=== PATIENT | male | born 2000 | race Caucasian/White ===

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

== ENCOUNTER 2020-08-19 18:54 | Inpatient (IN) | payer OTHER ==
[2020-08-19 20:23] LABS: Basophils % (A) 0 %; Eosinophils % (A) 1 %; HCT 41.1 % (39.0-53.0); Lymphocytes # (A) 2.2 k/uL (1.0-4.8); MCH 33.8 pg (25.0-35.0); MCHC 34.1 g/dL (31.0-37.0); MCV 99.1 fL (80.0-100.0); Mean Platelet Volume 6.5; Monocytes % (A) 1 %; Neutrophils % (A) 30 %; Platelet Count 428 k/uL (150-450); RBC 4.15 m/uL (4.30-5.90); WBC 3.2 k/uL (4.0-11.0)
[2020-08-19 20:38] LABS: ALT 14 U/L (4-49); AST 20 U/L (17-59); African American GFR (CKD) >90 (>60 ml/min/1.73 sqM); Albumin 3.6 g/dL (3.5-5.0); Alkaline Phosphatase 50 U/L (38-126); Anion Gap 12 mmol/L; Blood Urea Nitrogen 15 mg/dL (9-20); Calcium 7.6 mg/dL (8.4-10.2); Carbon Dioxide 16 mmol/L (22-30); Chloride 114 mmol/L (98-107); Glucose 74 mg/dL (74-99); Lymphocytes % (A) 67 %; Non-African American GFR(CKD) >90 (>60 ml/min/1.73 sqM); Potassium 2.8 mmol/L (3.5-5.1); Sodium 142 mmol/L (137-145); Total Protein 6.2 g/dL (6.3-8.2)
[2020-08-19] MEDS ORDERED: POTASSIUM CHLORIDE ER 20 MEQ TAB.ER PO STA (20:45)
[2020-08-19] MEDS ORDERED: POTASSIUM CHLORIDE 20 MEQ in WATER FOR INJECTION 1 100ML.BAG IVPB STA (20:46)
--- NOTE | 2020-08-19 20:55 | CT ---
EXAMINATION TYPE: CT pelvis w con DATE OF EXAM: 08/19/2020 COMPARISON: None HISTORY: Rectal pain. CT DLP: 873.8 mGycm Automated exposure control for dose reduction was used. CONTRAST: Performed with IV Contrast, patient injected with 100ml mL of Isovue 300. FINDINGS: The anal sphincter complex and perineum appear normal. The rectum and ischiorectal fossa, and other perirectal soft tissues appear normal. The remainder of the pelvic and visualized abdominal hollow viscera are unremarkable. The pelvic solid viscera are unremarkable. There is no pelvic adenopathy. The visualized abdominal solid viscera are unremarkable. There is no abdominal adenopathy. Visualized peritoneal cavity is negative for abnormal fluid or gas collections. Visualized vasculature is unremarkable. No acute skeletal findings are seen. IMPRESSION: NO ACUTE CT PROCESS.
[2020-08-19] MEDS ORDERED: POTASSIUM CHLORIDE 10 MEQ in WATER FOR INJECTION 1 100ML.BAG IVPB ONE (21:47)
[2020-08-19] MEDS ORDERED: MAGNESIUM OXIDE 400 MG TAB PO STA (21:53)
[2020-08-19] MEDS ORDERED: CLINDAMYCIN 600 MG in DEXTROSE 5% IN WATER 50 ML IVPB STA ×2 (21:57)
[2020-08-19] MEDS ORDERED: NALOXONE 0.4 MG/ML 1 ML VIAL IV PRN (22:01)
--- NOTE | 2020-08-19 22:03 | ED ---
GI Bleed HPI - General Chief complaint: GI Bleed Stated complaint: rectal pain Time Seen by Provider: 08/19/20 19:15 Source: patient Mode of arrival: ambulatory Limitations: no limitations - History of Present Illness Initial comments: 20-year-old male presenting to the ER today for chief complaint of rectal pain. Patient states he has rectal pain and bleeding and some discharge. He states he thinks an abscess ruptured. Patient states he was told by his outpatient provider that this was a hemorrhoid. Patient denies any known history of hemorrhoids. Patient denies any current bleeding. She denies any fevers chills general malaise. Patient states he did take laxatives in order to have softer bowel movements to make it less painful. Patient denies experiencing this for the past remaining review systems negative upon arrival patient appears nontoxic at distress - Related Data Home Medications Medication Instructions Recorded Confirmed Omeprazole 20 mg PO HS 08/19/20 08/19/20 Allergies Allergy/AdvReac Type Severity Reaction Status Date / Time adhesive Allergy Rash/Hives Verified 08/19/20 21:54 amoxicillin Allergy Rash/Hives. Verified 08/19/20 21:54 SWELLING. Sulfa (Sulfonamide Allergy Unknown Verified 08/19/20 21:54 Antibiotics) Review of Systems ROS Statement: Those systems with pertinent positive or pertinent negative responses have been documented in the HPI. ROS Other: All systems not noted in ROS Statement are negative. Past Medical History Past Medical History: Asthma, GERD/Reflux Additional Past Medical History / Comment(s): BRONCHITIS History of Any Multi-Drug Resistant Organisms: None Reported Past Surgical History: Appendectomy Additional Past Surgical History / Comment(s): DENTAL REHAB. Past Anesthesia/Blood Transfusion Reactions: No Reported Reaction, Family History of Problems w/ Anesthesia Additional Past Anesthesia/Blood Transfusion Reaction / Comment(s): HAD GENERAL ANESTHESIA FOR DENTAL REHAB. MOTHER GET PONV Past Psychological History: No Psychological Hx Reported Smoking Status: Never smoker Past Alcohol Use History: None Reported Past Drug Use History: Marijuana - Past Family History Mother Family Medical History: No Reported History General Exam - General Exam Comments Initial Comments: General: The patient is awake and alert, in no distress Eye: Pupils are equal, round and reactive to light, extra-ocular movements are intact. No nystagmus. There is normal conjunctiva bilaterally. No signs of icterus. Ears, nose, mouth and throat: There are moist mucous membranes and no oral lesions. Neck: The neck is supple, there is no tenderness or JVD. Cardiovascular: There is a regular rate and rhythm. No murmur, rub or gallop is appreciated. Respiratory: Lungs are clear to auscultation, respirations are non-labored, breath sounds are equal. No wheezes, stridor, rales, or rhonchi. Gastrointestinal: Soft, non-distended, non-tender abdomen without masses or organomegaly noted. There is no rebound or guarding present. Rectal: no hemmorhoid appreciated (internal nor external), however there appears to be a hold, area appearing consistent with recently rupture perianal abscess. No current drainage/fluctuance or redness but is tender to touch. Musculoskeletal: Normal ROM, no tenderness. Strength 5/5. Sensation intact. Pulses equal bilaterally 2+. Neurological: A&O x 3. CN II-XII intact, There are no obvious motor or sensory deficits. Coordination appears grossly intact. Speech is normal. Skin: Skin is warm and dry and no rashes or lesions are noted. Psychiatric: Cooperative, appropriate mood & affect, normal judgment. Limitations: no limitations Course Vital Signs 08/19/20 18:55 Temperature 98.2 F Pulse Rate 122 H Respiratory 16 Rate Blood Pressure 174/113 O2 Sat by Pulse 97 Oximetry Medical Decision Making - Medical Decision Making 20yo male presenting for cc of rectal bleeding. appears to be from a recently ruptured abscess. CT unremarkable. no fevers. pt found to have electrolyte abnormalities including hypo-magnesium and hypokalemia. Replaced orally as well as potassium intravenously. pt could not tolerate potassium. it was cancelled after 5mg was given. further diluted by pharmacy and sent up an additional 10mg for a table of 15mg IVBP. Patient case discussed with Abraham Mcgarry who prefers admission for monitoring and repeat labs. pt agreeable. pt case accepted for admission by April (for [facility] group). - Lab Data Result diagrams: 08/19/20 20:09 08/19/20 20:09 Lab Results 08/19/20 08/19/20 08/19/20 Range/Units 20:09 20:09 20:09 WBC 3.2 L (4.0-11.0) k/uL RBC 4.15 L (4.30-5.90) m/uL Hgb 14.0 (13.0-17.5) gm/dL Hct 41.1 (39.0-53.0) % MCV 99.1 (80.0-100.0) fL MCH 33.8 (25.0-35.0) pg MCHC 34.1 (31.0-37.0) g/dL RDW 14.0 (11.5-15.5) % Plt Count 428 (150-450) k/uL MPV 6.5 Neutrophils % 30 % Lymphocytes % 67 % Monocytes % 1 % Eosinophils % 1 % Basophils % 0 % Neutrophils # 1.0 L (1.3-7.7) k/uL Lymphocytes # 2.2 (1.0-4.8) k/uL Monocytes # 0.0 (0-1.0) k/uL Eosinophils # 0.0 (0-0.7) k/uL Basophils # 0.0 (0-0.2) k/uL Sodium 142 (137-145) mmol/L Potassium 2.8 L (3.5-5.1) mmol/L Chloride 114 H (98-107) mmol/L Carbon Dioxide 16 L (22-30) mmol/L Anion Gap 12 mmol/L BUN 15 (9-20) mg/dL Creatinine 0.76 (0.66-1.25) mg/dL Est GFR (CKD-EPI)AfAm >90 (>60 ml/min/1.73 sqM) Est GFR (CKD-EPI)NonAf >90 (>60 ml/min/1.73 sqM) Glucose 74 (74-99) mg/dL Calcium 7.6 L (8.4-10.2) mg/dL Magnesium 1.3 L (1.6-2.3) mg/dL Total Bilirubin 1.0 (0.2-1.3) mg/dL AST 20 (17-59) U/L ALT 14 (4-49) U/L Alkaline Phosphatase 50 (38-126) U/L Total Protein 6.2 L (6.3-8.2) g/dL Albumin 3.6 (3.5-5.0) g/dL Disposition Clinical Impression: Hypomagnesemia, Hypokalemia, Perianal pain Disposition: ADMITTED IP TO THIS HOSP Condition: Stable Is patient prescribed a controlled substance at d/c from ED?: No Referrals: Jaylon Valera MD [Primary Care Provider] - 1-2 days Time of Disposition: 22:02 Decision to Admit Reason: Admit from EC Decision Date: 08/19/20 Decision Time: 22:02
[2020-08-20] MEDS: SODIUM CHLORIDE 0.9% 1,000 ML IV SCH ×4 (01:33→23:41)
[2020-08-20] MEDS: MORPHINE SULFATE 4 MG/ML SYRINGE IVP PRN ×5 (01:35→22:50)
[2020-08-20 09:31] LABS: ALT 15 U/L (4-49); AST 20 U/L (17-59); African American GFR (CKD) >90 (>60 ml/min/1.73 sqM); Albumin 4.1 g/dL (3.5-5.0); Alkaline Phosphatase 55 U/L (38-126); Anion Gap 11 mmol/L; Blood Urea Nitrogen 15 mg/dL (9-20); Calcium 9.3 mg/dL (8.4-10.2); Carbon Dioxide 26 mmol/L (22-30); Chloride 101 mmol/L (98-107); Glucose 90 mg/dL (74-99); Non-African American GFR(CKD) >90 (>60 ml/min/1.73 sqM); Potassium 3.9 mmol/L (3.5-5.1); Sodium 138 mmol/L (137-145); Total Protein 6.8 g/dL (6.3-8.2)
[2020-08-20] MEDS ORDERED: ACETAMINOPHEN TAB 325 MG TAB PO PRN (13:31)
--- NOTE | 2020-08-20 15:20 | P.HPIM ---
History of Present Illness This is a pleasant 20 years old male with past medical history of hiatal hernia and acid reflux on omeprazole, obesity, smokes marijuana but no cigarette smoking or alcohol abuse. Presents because of perineal pain. Patient thought he has hemorrhoids for 10 days due to pain and tender swelling followed by himself, with some discharge and blood per rectum, he tried some sitz baths which did not help, gradually was getting worse and so he went to see his PCP Dr. Valera and respiratory there, therefore no hemorrhoids but they told him there is possible an abscess and therefore him to the hospital. Patient states that his pain is 5/10 in severity but he denies fever, no abdominal pain. He has painful defecation so he tried to keep his stool soft. No vomiting. He is hemodynamically stable and vitals and labs are reviewed. In the emergency room he was started on clindamycin, magnesium and potassium replaced per protocol. He is on normal saline 125 mL/h Pelvic CT was unremarkable Review of Systems CONSTITUTIONAL: No fever, no malaise, no fatigue. HEENT: No recent visual problems or hearing problems. Denied any sore throat. CARDIOVASCULAR: No orthopnea, PND, no palpitations, no syncope. PULMONARY: No shortness of breath, no cough, no hemoptysis. GASTROINTESTINAL: No diarrhea, no nausea, no vomiting, no abdominal pain. Normoactive bowel sounds. NEUROLOGICAL: No headaches, no weakness, no numbness. HEMATOLOGICAL: Denies any bleeding or petechiae. GENITOURINARY: Denies any burning micturition, frequency, or urgency. MUSCULOSKELETAL/RHEUMATOLOGICAL: Denies any joint pain, swelling, or any muscle pain. ENDOCRINE: Denies any polyuria or polydipsia. Past Medical History Past Medical History: Asthma, GERD/Reflux Additional Past Medical History / Comment(s): Bronchitis History of Any Multi-Drug Resistant Organisms: None Reported Past Surgical History: Appendectomy Additional Past Surgical History / Comment(s): Dental procedures, EGD Past Anesthesia/Blood Transfusion Reactions: No Reported Reaction, Family History of Problems w/ Anesthesia Additional Past Anesthesia/Blood Transfusion Reaction / Comment(s): Mother has PONV Smoking Status: Never smoker - Past Family History Mother Family Medical History: CVA/TIA, Diabetes Mellitus, Hyperlipidemia, Hypertension Additional Family Medical History / Comment(s): TIA Father Family Medical History: CVA/TIA Additional Family Medical History / Comment(s): TIA Medications and Allergies Home Medications Medication Instructions Recorded Confirmed Type Omeprazole 20 mg PO HS 08/19/20 08/19/20 History Allergies Allergy/AdvReac Type Severity Reaction Status Date / Time adhesive Allergy Rash/Hives Verified 08/19/20 21:54 amoxicillin Allergy Rash/Hives. Verified 08/19/20 21:54 SWELLING. Sulfa (Sulfonamide Allergy Unknown Verified 08/19/20 21:54 Antibiotics) Physical Exam Vitals: Vital Signs Temp Pulse Resp BP BP Pulse Ox 08/20/20 14:00 97.4 F L 16 144/92 92 L 08/20/20 07:00 98.7 F 16 151/99 98 08/20/20 06:30 97.6 F 106 H 18 129/90 97 08/20/20 04:45 85 16 145/83 95 08/20/20 02:00 86 08/20/20 01:18 98.7 F 115 H 18 151/88 96 08/19/20 22:32 97 18 148/88 98 08/19/20 18:55 98.2 F 122 H 16 174/113 97 Intake and Output 08/20/20 08/20/20 08/20/20 06:59 14:59 22:59 Other: Voiding Method Toilet Weight 98.883 kg GENERAL: The patient is alert and oriented x3, not in any acute distress. Well developed, well nourished. HEENT: Pupils are round and equally reacting to light. EOMI. No scleral icterus. No conjunctival pallor. Normocephalic, atraumatic. No pharyngeal erythema. No thyromegaly. CARDIOVASCULAR: S1 and S2 present. No murmurs, rubs, or gallops. PULMONARY: Chest is clear to auscultation, no wheezing or crackles. -ABDOMEN: Soft, nontender, nondistended, normoactive bowel sounds. No palpable organomegaly. Rectal exam done after consent obtained from patient: No ulcers, no masses, no discharge, no signs and symptoms of cellulitis however tenderness in the left buttock area more than the right side MUSCULOSKELETAL: No joint swelling or deformity. EXTREMITIES: No cyanosis, clubbing, or pedal edema. NEUROLOGICAL: Gross neurological examination did not reveal any focal deficits. SKIN: No rashes. No petechiae Results CBC & Chem 7: 08/19/20 20:09 08/20/20 08:26 Labs: Abnormal Lab Results - Last 24 Hours (Table) 08/19/20 08/19/20 08/19/20 Range/Units 20:09 20:09 20:09 WBC 3.2 L (4.0-11.0) k/uL RBC 4.15 L (4.30-5.90) m/uL Neutrophils # 1.0 L (1.3-7.7) k/uL Potassium 2.8 L (3.5-5.1) mmol/L Chloride 114 H (98-107) mmol/L Carbon Dioxide 16 L (22-30) mmol/L Calcium 7.6 L (8.4-10.2) mg/dL Magnesium 1.3 L (1.6-2.3) mg/dL Total Protein 6.2 L (6.3-8.2) g/dL Thrombosis Risk Factor Assmnt - Choose All That Apply Any of the Below Risk Factors Present?: Yes Each Factor Represents 1 point: Obesity (BMI >25) Other Risk Factors: No Other congenital or acquired thrombophilia - If yes, enter type in comment: No Thrombosis Risk Factor Assessment Total Risk Factor Score: 1 Thrombosis Risk Factor Assessment Level: Low Risk Assessment and Plan Assessment: -Perineal pain and tenderness, rule out perirectal abscess. Consult surgery team. We'll check a pro-calcitonin. Continue with gentle hydration -History of hiatal hernia, and acid reflux continue with PPI -Obesity with BMI of 34.1 -Substance abuse with marijuana DVT prophylaxis: Lovenox GI prophylaxis PPI
[2020-08-21] MEDS: MORPHINE SULFATE 4 MG/ML SYRINGE IVP PRN ×3 (03:07→15:34)
[2020-08-21] MEDS: HEPARIN SODIUM,PORCINE/PF 5,000 UNIT/0.5 ML SYRINGE SQ SCH ×2 (09:54→21:58)
[2020-08-21] MEDS: FAMOTIDINE 20 MG/2 ML VIAL IV SCH ×2 (09:54→21:58)
[2020-08-21] MEDS: SODIUM CHLORIDE 0.9% 1,000 ML IV SCH ×3 (11:58→23:17)
--- NOTE | 2020-08-21 16:02 | P.GSCN ---
History of Present Illness Consult date: 08/21/20 History of present illness: HPI: Patient admitted for rectal pain status post spontaneous drainage from rectal abscess. He reports using sitz bath that provided some relief. He reports rectal pain for almost 2 weeks. Despite drainage from his rectal abscess, he presented to the hospital with uncontrolled pain. STUDIES: CT pelvis reviewed without any fluid collection or drainable abscess. ASSESMENT: 1. Rectal abscess with pain PLAIN: 1. Recommend sitz bath for relief 2. Continue antibiotics for complicated infection. Past Medical History Past Medical History: Asthma, GERD/Reflux Additional Past Medical History / Comment(s): Bronchitis History of Any Multi-Drug Resistant Organisms: None Reported Past Surgical History: Appendectomy Additional Past Surgical History / Comment(s): Dental procedures, EGD Past Anesthesia/Blood Transfusion Reactions: No Reported Reaction, Family History of Problems w/ Anesthesia Additional Past Anesthesia/Blood Transfusion Reaction / Comm: Mother has PONV Smoking Status: Never smoker - Past Family History Mother Family Medical History: CVA/TIA, Diabetes Mellitus, Hyperlipidemia, Hypertension Additional Family Medical History / Comment(s): TIA Father Family Medical History: CVA/TIA Additional Family Medical History / Comment(s): TIA Medications and Allergies Home Medications Medication Instructions Recorded Confirmed Type Omeprazole 20 mg PO HS 08/19/20 08/19/20 History Allergies Allergy/AdvReac Type Severity Reaction Status Date / Time adhesive Allergy Rash/Hives Verified 08/19/20 21:54 amoxicillin Allergy Rash/Hives. Verified 08/19/20 21:54 SWELLING. Sulfa (Sulfonamide Allergy Unknown Verified 08/19/20 21:54 Antibiotics) Surgical - Exam Vital Signs Temp Pulse Resp BP Pulse Ox 98.2 F 122 H 16 174/113 97 08/19/20 18:55 08/19/20 18:55 08/19/20 18:55 08/19/20 18:55 08/19/20 18:55 Results - Labs 08/19/20 20:09 08/20/20 08:26
--- NOTE | 2020-08-21 21:54 | P.PN ---
Subjective This is a pleasant 20 years old male with past medical history of hiatal hernia and acid reflux on omeprazole, obesity, smokes marijuana but no cigarette smoking or alcohol abuse. Presents because of perineal pain. Patient thought he has hemorrhoids for 10 days due to pain and tender swelling followed by himself, with some discharge and blood per rectum, he tried some sitz baths which did not help, gradually was getting worse and so he went to see his PCP Dr. Valera and respiratory there, therefore no hemorrhoids but they told him there is possible an abscess and therefore him to the hospital. Patient states that his pain is 5/10 in severity but he denies fever, no abdominal pain. He has painful defecation so he tried to keep his stool soft. No vomiting. He is hemodynamically stable and vitals and labs are reviewed. In the emergency room he was started on clindamycin, magnesium and potassium replaced per protocol. He is on normal saline 125 mL/h Pelvic CT was unremarkable 08/21/2020 Patient presents with rectal pain and stated there is some discharge of bleeding however when examined him this can looks normal and there is no wound or discharge but he was complaining of from tenderness in the left buttock area. Patient was admitted to the hospital for surgical team consultation. Dr. Caceres evaluated the patient today and recommended conservative management. However he should ice of antibiotic. No fever or leukocytosis. Because of this we will consult infectious disease team and we will check a C-reactive protein and Procalcitonin. Patient is on normal saline 75 mL/h Objective - Vital Signs Vital signs: Vital Signs Temp 98.7 F 08/21/20 19:05 Pulse 82 08/21/20 19:05 Resp 16 08/21/20 19:05 BP 106/74 08/21/20 19:05 Pulse Ox 97 08/21/20 19:05 Intake & Output 08/21/20 08/21/20 08/22/20 06:59 18:59 06:59 Intake Total 1650 720 Balance 1650 720 Intake: Intake, IV Titration 1500 Amount Sodium Chloride 0.9% 1, 1500 000 ml @ 125 mls/hr IV . Q8H DONTRELL Rx#:[id number] Oral 150 720 Other: Voiding Method Toilet # Voids 4 - Exam GENERAL: The patient is alert and oriented x3, not in any acute distress. Well developed, well nourished. HEENT: Pupils are round and equally reacting to light. EOMI. No scleral icterus. No conjunctival pallor. Normocephalic, atraumatic. No pharyngeal erythema. No thyromegaly. CARDIOVASCULAR: S1 and S2 present. No murmurs, rubs, or gallops. PULMONARY: Chest is clear to auscultation, no wheezing or crackles. ABDOMEN: Soft, nontender, nondistended, normoactive bowel sounds. No palpable organomegaly. Rectal exam: Deferred today MUSCULOSKELETAL: No joint swelling or deformity. EXTREMITIES: No cyanosis, clubbing, or pedal edema. NEUROLOGICAL: Gross neurological examination did not reveal any focal deficits. SKIN: No rashes. no petechiae. - Labs CBC & Chem 7: 08/19/20 20:09 08/20/20 08:26 Assessment and Plan Assessment: -Perineal pain and tenderness, rule out perirectal abscess. surgery team recommended conservative treatment. We'll check a pro-calcitonin/C-reactive protein is off antibiotics now. Consult ID team. Continue with gentle hydration -History of hiatal hernia, and acid reflux continue with PPI -Obesity with BMI of 34.1 -Substance abuse with marijuana DVT prophylaxis: Lovenox GI prophylaxis PPI
[2020-08-21] MEDS: IBUPROFEN 400 MG TAB PO PRN (23:16)
[2020-08-22] MEDS: FAMOTIDINE 20 MG/2 ML VIAL IV SCH ×2 (09:06→21:10)
[2020-08-22] MEDS: HEPARIN SODIUM,PORCINE/PF 5,000 UNIT/0.5 ML SYRINGE SQ SCH ×2 (09:08→21:10)
[2020-08-22] MEDS: IBUPROFEN 400 MG TAB PO PRN ×2 (09:11→17:08)
[2020-08-22 10:27] LABS: Basophils # (A) 0.01 X 10*3/uL (0.00-0.10); Basophils % (A) 0.3 %; Eosinophils # (A) 0.03 X 10*3/uL (0.04-0.35); Eosinophils % (A) 0.8 %; HCT 30.2 % (39.6-50.0); HGB 10.5 g/dL (13.0-17.0); Lymphocytes # (A) 3.37 X 10*3/uL (0.90-5.00); Lymphocytes % (A) 88.7 %; MCH 35.1 pg (27.0-32.0); MCHC 34.8 g/dL (32.0-37.0); Mean Platelet Volume 9.7 fL (9.5-12.2); Monocytes # (A) 0.05 X 10*3/uL (0.20-1.00); Monocytes % (A) 1.3 %; Neutrophils # (A) 0.34 X 10*3/uL (1.80-7.70); Neutrophils % (A) 8.9 %; Platelet Count 294 X 10*3/uL (140-440); RBC 2.99 X 10*6/uL (4.40-5.60); RDW 13.4 % (11.5-14.5)
[2020-08-22] MEDS: SODIUM CHLORIDE 0.9% 1,000 ML IV SCH ×2 (10:31→18:21)
--- NOTE | 2020-08-22 16:09 | P.CONS ---
History of Present Illness - Reason for Consult Consult date: 08/22/20 Leukopenia - History of Present Illness The patient is a 20-year-old white male, who presented to the emergency room because of perianal pain that started about 10 days ago. Painful defecation, and some diarrhea. The patient has a history of hemorrhoids and did notice some mild bleeding and attributed this to inflamed hemorrhoids. Symptoms did not improve with sitz baths and local treatment for hemorrhoids. He therefore sought attention with his PCP, and was felt to have a perirectal abscess. The patient was therefore directed to the ER. In the emergency room he was seen by surgery and was found to have spontaneous drainage of the rectal abscess. On admission his WBC was 3.2 with ANC of 1000. Subsequent blood draw showed persistent white count of 3000 range but ANC less than 500. Consult was therefore placed a further evaluation and recommendations. The patient denied any prior history of blood related problems. He denied any history of significant alcohol use, or IV drug use. No history of HIV, or autoimmune disease. He denied any new medications especially antibiotics that about 2 weeks ago he had an upper respiratory infection and has had some diarrhea since then which is slowly improving. Review of Systems Constitutional: Denies chills, Denies fever Eyes: denies blurred vision, denies pain Ears: deny: decreased hearing, ear discharge, earache, tinnitus Ears, nose, mouth and throat: Denies headache, Denies sore throat Cardiovascular: Denies chest pain, Denies shortness of breath Respiratory: Denies cough Gastrointestinal: Reports as per HPI, Reports change in bowel habits, Reports heartburn, Reports hematochezia Genitourinary: Reports as per HPI Musculoskeletal: Denies myalgias Integumentary: Reports as per HPI Neurological: Denies numbness, Denies weakness Psychiatric: Reports anxiety Endocrine: Denies fatigue, Denies weight change Hematologic/Lymphatic: Reports as per HPI Past Medical History Past Medical History: Asthma, GERD/Reflux Additional Past Medical History / Comment(s): Bronchitis History of Any Multi-Drug Resistant Organisms: None Reported Past Surgical History: Appendectomy Additional Past Surgical History / Comment(s): Dental procedures, EGD Past Anesthesia/Blood Transfusion Reactions: No Reported Reaction, Family History of Problems w/ Anesthesia Additional Past Anesthesia/Blood Transfusion Reaction / Comm: Mother has PONV Smoking Status: Never smoker - Past Family History Mother Family Medical History: CVA/TIA, Diabetes Mellitus, Hyperlipidemia, Hypertension Additional Family Medical History / Comment(s): TIA Father Family Medical History: CVA/TIA Additional Family Medical History / Comment(s): TIA Medications and Allergies Home Medications Medication Instructions Recorded Confirmed Type Omeprazole 20 mg PO HS 08/19/20 08/19/20 History Allergies Allergy/AdvReac Type Severity Reaction Status Date / Time adhesive Allergy Rash/Hives Verified 08/19/20 21:54 amoxicillin Allergy Rash/Hives. Verified 08/19/20 21:54 SWELLING. Sulfa (Sulfonamide Allergy Unknown Verified 08/19/20 21:54 Antibiotics) Physical Exam Vitals: Vital Signs Temp Pulse Pulse Resp BP Pulse Ox 08/22/20 14:00 98.4 F 81 16 130/74 98 08/22/20 07:16 98.2 F 60 118/78 98 08/22/20 02:00 97.5 F L 72 16 118/73 08/21/20 20:00 50 L 82 16 08/21/20 19:05 98.7 F 82 16 106/74 97 - Constitutional General appearance: no acute distress - EENT Eyes: EOMI, PERRLA ENT: hearing grossly normal, normal oropharynx - Neck Neck: no lymphadenopathy Thyroid: bilateral: normal size - Respiratory Respiratory: bilateral: CTA - Cardiovascular Rhythm: regular Heart sounds: normal: S1, S2 - Gastrointestinal General gastrointestinal: normal bowel sounds, soft - Integumentary Integumentary: normal - Neurologic Neurologic: CNII-XII intact - Musculoskeletal Musculoskeletal: generalized weakness, strength equal bilaterally - Psychiatric Psychiatric: A&O x's 3, appropriate affect Results CBC & Chem 7: 08/22/20 05:52 08/20/20 08:26 Labs: Abnormal Lab Results - Last 24 Hours (Table) 08/20/20 08/22/20 Range/Units 08:26 05:52 WBC 3.80 L (4.50-10.00) X 10*3/uL RBC 2.99 L (4.40-5.60) X 10*6/uL Hgb 10.5 L (13.0-17.0) g/dL Hct 30.2 L (39.6-50.0) % MCV 101.0 H (80.0-97.0) fL MCH 35.1 H (27.0-32.0) pg Neutrophils # 0.34 L* (1.80-7.70) X 10*3/uL Monocytes # 0.05 L (0.20-1.00) X 10*3/uL Eosinophils # 0.03 L (0.04-0.35) X 10*3/uL C-Reactive Protein 5.0 H (<1.0) mg/dL Comments: EGD procedure note and pathology report from 2017 reviewed. No major findings CT scan - pelvis: report reviewed US - abdomen: report reviewed (2016) Assessment and Plan (1) Leukopenia Narrative/Plan: The patient is preventing with leukopenia that appears to be mainly due to neutropenia. Neutrophil count drop further within his 24 hours of admission. - Patient's physical exam and history overall unrevealing. He is no history of recurrent infections on a regular basis. That would argue against benign cyclic neutropenia, which is a differential especially in this age group. - The patient did have a viral-type illness about 2 weeks ago and therefore an autoimmune phenomenon, worsened by acute inflammation is a possibility. Other causes are not ruled out. - A repeat CBC with differential. If the patient's ANC remains below 1000, especially below 500, then growth factors or the use given recent abscess. - Lab workup will be ordered for leukopenia, with deficiency states, HIV, protein electrophoresis studies and autoimmune/inflammatory markers. - There is no history of alcohol use, or liver disease. Liver ultrasound in 2016 was normal. Current Visit: Yes Status: Acute Code(s): D72.819 - DECREASED WHITE BLOOD CELL COUNT, UNSPECIFIED SNOMED Code(s): 42764957 (2) Perianal pain Narrative/Plan: Due to perirectal abscess, which appears to have spontaneously drained. Surgery is following. Defer to them for ongoing management Current Visit: Yes Status: Acute Code(s): K62.89 - OTHER SPECIFIED DISEASES OF ANUS AND RECTUM SNOMED Code(s): 170786398
[2020-08-22] MEDS: metroNIDAZOLE 500 MG TAB PO SCH ×2 (17:08→21:10)
[2020-08-22 18:07] LABS: Basophils % (A) 0 %; Eosinophils % (A) 1 %; HCT 36.6 % (39.0-53.0); HGB 12.7 gm/dL (13.0-17.5); Lymphocytes # (A) 1.6 k/uL (1.0-4.8); Lymphocytes % (A) 66 %; MCH 34.2 pg (25.0-35.0); MCHC 34.7 g/dL (31.0-37.0); MCV 98.6 fL (80.0-100.0); Mean Platelet Volume 6.6; Monocytes % (A) 1 %; Neutrophils # (A) 0.7 k/uL (1.3-7.7); Neutrophils % (A) 31 %; Platelet Count 352 k/uL (150-450); RBC 3.71 m/uL (4.30-5.90); RDW 13.2 % (11.5-15.5); WBC 2.4 k/uL (4.0-11.0)
[2020-08-22 19:08] LABS: Lymphocytes # (M) 1.49 k/uL (1.0-4.8); Neutrophils # (M) 0.91 k/uL (1.3-7.7); Neutrophils % (M) 38 %; Nucleated Red Blood Cells 0 /100 WBC (0-0); Total Cells Counted 100
--- NOTE | 2020-08-22 23:45 | P.PN ---
Subjective This is a pleasant 20 years old male with past medical history of hiatal hernia and acid reflux on omeprazole, obesity, smokes marijuana but no cigarette smoking or alcohol abuse. Presents because of perineal pain. Patient thought he has hemorrhoids for 10 days due to pain and tender swelling followed by himself, with some discharge and blood per rectum, he tried some sitz baths which did not help, gradually was getting worse and so he went to see his PCP Dr. Valera and respiratory there, therefore no hemorrhoids but they told him there is possible an abscess and therefore him to the hospital. Patient states that his pain is 5/10 in severity but he denies fever, no abdominal pain. He has painful defecation so he tried to keep his stool soft. No vomiting. He is hemodynamically stable and vitals and labs are reviewed. In the emergency room he was started on clindamycin, magnesium and potassium replaced per protocol. He is on normal saline 125 mL/h Pelvic CT was unremarkable 08/21/2020 Patient presents with rectal pain and stated there is some discharge of bleeding however when examined him this can looks normal and there is no wound or discharge but he was complaining of from tenderness in the left buttock area. Patient was admitted to the hospital for surgical team consultation. Dr. Caceres evaluated the patient today and recommended conservative management. However he should ice of antibiotic. No fever or leukocytosis. Because of this we will consult infectious disease team and we will check a C-reactive protein and Procalcitonin. Patient is on normal saline 75 mL/h 09/01/20 Patient is still complaining of from anal pain, and reports some drainage from his rectum although there is no objective evidence to light. However because of his persistent pain we repeated labs today which showed leukopenia and neut ropenia. Infectious disease consult is called was started him on Rocephin and Flagyl. Hematology/oncology team are somewhat cuplike HIV, protein electrophoresis with CBC monitoring. No surgical intervention per surgery team and the recommended a sitz bath Objective - Vital Signs Vital signs: Vital Signs Temp 98.2 F 08/22/20 07:16 Pulse 60 08/22/20 07:16 Resp 16 08/22/20 02:00 BP 118/78 08/22/20 07:16 Pulse Ox 98 08/22/20 07:16 Intake & Output 08/21/20 08/22/2021 18:59 06:59 18:59 Intake Total 720 Balance 720 Intake: Oral 720 Other: Voiding Method Toilet # Voids 4 1 - Exam GENERAL: The patient is alert and oriented x3, not in any acute distress. Well developed, well nourished. HEENT: Pupils are round and equally reacting to light. EOMI. No scleral icterus. No conjunctival pallor. Normocephalic, atraumatic. No pharyngeal erythema. No thyromegaly. CARDIOVASCULAR: S1 and S2 present. No murmurs, rubs, or gallops. PULMONARY: Chest is clear to auscultation, no wheezing or crackles. ABDOMEN: Soft, nontender, nondistended, normoactive bowel sounds. No palpable organomegaly. Rectal exam: Deferred today MUSCULOSKELETAL: No joint swelling or deformity. EXTREMITIES: No cyanosis, clubbing, or pedal edema. NEUROLOGICAL: Gross neurological examination did not reveal any focal deficits. SKIN: No rashes. no petechiae. - Labs CBC & Chem 7: 08/22/20 17:25 08/20/20 08:26 Labs: Abnormal Lab Results - Last 24 Hours (Table) 08/20/20 08/22/20 Range/Units 08:26 05:52 WBC 3.80 L (4.50-10.00) X 10*3/uL RBC 2.99 L (4.40-5.60) X 10*6/uL Hgb 10.5 L (13.0-17.0) g/dL Hct 30.2 L (39.6-50.0) % MCV 101.0 H (80.0-97.0) fL MCH 35.1 H (27.0-32.0) pg Neutrophils # 0.34 L* (1.80-7.70) X 10*3/uL Monocytes # 0.05 L (0.20-1.00) X 10*3/uL Eosinophils # 0.03 L (0.04-0.35) X 10*3/uL C-Reactive Protein 5.0 H (<1.0) mg/dL Assessment and Plan Assessment: -Perineal pain and tenderness, rule out perirectal abscess. surgery team recommended conservative treatment. Infectious" is appreciated and patient was started on antibiotics -Leukopenia/neutropenia, mostly secondary to his infection. Hematology/oncology input is appreciated and they recommended further workup as above -History of hiatal hernia, and acid reflux continue with PPI -Obesity with BMI of 34.1 -Substance abuse with marijuana DVT prophylaxis: Lovenox GI prophylaxis PPI
[2020-08-23] MEDS ORDERED: FILGRASTIM-SNDZ 480 MCG/0.8 ML SYRINGE SQ SCH (01:00)
[2020-08-23] MEDS: SODIUM CHLORIDE 0.9% 1,000 ML IV SCH ×3 (01:24→17:47)
--- NOTE | 2020-08-23 06:34 | CONS ---
CONSULTATION DATE OF SERVICE: 08/22/2020 REASON FOR CONSULTATION: Perirectal abscess. HISTORY OF PRESENT ILLNESS: The patient is a 20-year-old man who presented to [facility] ER 3 days ago on August 19 for evaluation of pain to the rectal area and some drainage. The patient mentioned he did have pressure to the right perirectal area with spontaneous drainage and drainage of blood and some clear drainage. The patient denies having any history of any trauma to the area. The patient has been complaining of pain to be sharp to dull aching, 4-5 out of 10 and no radiation. The patient denies having any fever or any chills. With these symptoms, the patient was evaluated by the ER physician. On arrival to the ER, the patient did have a CT of the pelvic area that did not mention any perirectal abscess. The patient did have a normal white count. He was slightly leukopenic and neutropenic. The patient did have a normal creatinine. COVID- 19 testing was negative. The patient has been evaluated by Admitting and Surgical service. Infectious Disease was consulted for management of antibiotic therapy. REVIEW OF SYSTEMS: Positive points have been mentioned in HPI. Rest of systems are negative. PAST MEDICAL HISTORY: Asthma, gastroesophageal reflux disease. PAST SURGICAL HISTORY: Appendectomy. SOCIAL HISTORY: Denies smoking, drinking. Does admit to marijuana use. FAMILY HISTORY: No pertinent findings noticed. ALLERGIES: SULFA and AMOXICILLIN with rash. No history of anaphylaxis. MEDICATIONS: The patient is currently on Tylenol, famotidine, Motrin, Narcan and IV fluid. PHYSICAL EXAMINATION: VITAL SIGNS: Blood pressure 136/76, pulse of 82, temperature 98.6, 98% on room air. GENERAL DESCRIPTION: Patient is a young male lying in bed in no distress. HEENT: Examination shows no pallor or scleral icterus. Oral mucous membrane is dry. NECK: Trachea central, no thyromegaly. LUNGS: Unlabored breathing, clear to auscultation. No wheeze or crackle. HEART: S1-S2, regular rate and rhythm. ABDOMEN: Soft, no tenderness. No guarding or rigidity. GI: On examination of the perirectal area, did have some superficial ulceration to the right perirectal area with no surrounding induration. Area was clean. Cultures were obtained. EXTREMITIES: No edema of the feet. SKIN: No rash or mass palpable. NEUROLOGICAL: Patient is awake, alert, oriented times three. Mood and affect normal. LABS: Hemoglobin is 12.7, white count 2.4, BUN of 15, creatinine 0.94. CT report as mentioned above. DIAGNOSTIC IMPRESSION AND PLAN: 1. Patient admitted to the hospital with perirectal pain and some drainage. CT failed to reveal any abscess. The patient did not have any fever. Did have some leukopenia and no significant induration or drainage was noticed. Suspicion low for underlying deep abscess or cellulitis. 2. Patient does have PENICILLIN allergy that will limit the number of antibiotics safe to use. PLAN: 1. Local culture has been obtained to guide antibiotic therapy. 2. Will empirically add Rocephin 2 grams daily and Flagyl. 3. We will follow on his clinical condition and culture to further adjust medication if needed. Thank you for this consultation. Will follow this patient along with you. MMODL / IJN: [id number] /
[2020-08-23 07:39] LABS: Basophils % (A) 0 %; Eosinophils # (A) 0.1 k/uL (0-0.7); Eosinophils % (A) 2 %; HCT 34.1 % (39.0-53.0); HGB 11.8 gm/dL (13.0-17.5); Lymphocytes # (A) 1.7 k/uL (1.0-4.8); Lymphocytes % (A) 64 %; MCH 34.3 pg (25.0-35.0); MCHC 34.5 g/dL (31.0-37.0); MCV 99.3 fL (80.0-100.0); Mean Platelet Volume 6.6; Monocytes % (A) 1 %; Neutrophils # (A) 0.9 k/uL (1.3-7.7); Neutrophils % (A) 33 %; Platelet Count 336 k/uL (150-450); RBC 3.43 m/uL (4.30-5.90); RDW 13.4 % (11.5-15.5); WBC 2.8 k/uL (4.0-11.0)
[2020-08-23] MEDS: metroNIDAZOLE 500 MG TAB PO SCH ×3 (08:31→21:13)
[2020-08-23] MEDS: FAMOTIDINE 20 MG/2 ML VIAL IV SCH ×2 (08:32→21:13)
[2020-08-23] MEDS: HEPARIN SODIUM,PORCINE/PF 5,000 UNIT/0.5 ML SYRINGE SQ SCH ×2 (08:33→21:13)
[2020-08-23] MEDS: IBUPROFEN 400 MG TAB PO PRN (08:34)
[2020-08-23 10:35] LABS: Calcium 9.3 mg/dL (8.7-10.3); Non-African American GFR(CKD) 107.9 (60.0-200.0); Potassium 3.8 mmol/L (3.5-5.5)
[2020-08-23 11:58] LABS: Protein, Total 6.7 g/dL (6.2-8.2)
[2020-08-23] MEDS: MORPHINE SULFATE 4 MG/ML SYRINGE IVP PRN ×2 (12:59→21:13)
[2020-08-23 13:49] LABS: Free Kappa Lt Chain Qnt, Serum 1.39 mg/dL (0.33-1.94)
--- NOTE | 2020-08-23 14:45 | P.PN ---
Subjective Progress Note Date: 08/23/20 CHIEF COMPLAINT: Perirectal pain HISTORY OF PRESENT ILLNESS: Surgical service is following regards to. Patient's perirectal abscess. Patient has had decrease in amount of drainage from the abscess. He is complaining of pain. Denies any nausea or vomiting. This sitz baths will be started today. He is on antibiotics. He reports that his pain is not controlled. Afebrile. WBC 2.8 PHYSICAL EXAM: VITAL SIGNS: Reviewed. GENERAL: Well-developed in no acute distress. HEENT: No sclera icterus. Extraocular movements grossly intact. Moist buccal mucosa. Head is atraumatic, normocephalic. ABDOMEN: Soft. Nondistended. Nontender. There is a small abscess about 1 cm in size on the left side of the anus that is painful with palpation and indurated NEUROLOGIC: Alert and oriented. Cranial nerves II through XII grossly intact. ASSESSMENT: 1. Rectal abscess with pain PLAN: -Recommend sitz bath for relief -Continue antibiotics -Add IV morphine as needed for pain -Also continue the Tylenol and Motrin Physician Manager Integration note has been reviewed by physician. Signing provider agrees with the documented findings, assessment, and plan of care. Objective - Vital Signs Vital signs: Vital Signs Temp 98.6 F 08/23/20 14:00 Pulse 88 08/23/20 14:00 Resp 17 08/23/20 14:00 BP 149/86 08/23/20 14:00 Pulse Ox 97 08/23/20 14:00 Intake & Output 08/22/20 08/23/20 08/23/20 18:59 06:59 18:59 Intake Total 100 360 Balance 100 360 Intake: Oral 100 360 Other: Voiding Method Toilet # Voids 3 1 # Bowel Movements 1 - Labs CBC & Chem 7: 08/23/20 07:11 08/23/20 07:11 Labs: Abnormal Lab Results - Last 24 Hours (Table) 08/22/20 08/23/20 08/23/20 Range/Units 17:25 07:11 07:11 WBC 2.4 L 2.8 L (4.0-11.0) k/uL RBC 3.71 L 3.43 L (4.30-5.90) m/uL Hgb 12.7 L 11.8 L (13.0-17.5) gm/dL Hct 36.6 L 34.1 L (39.0-53.0) % Neutrophils # 0.7 L 0.9 L (1.3-7.7) k/uL Neutrophils # (Manual) 0.91 L (1.3-7.7) k/uL BUN 7.0 L (9.0-27.0) mg/dL BUN/Creatinine Ratio 7.00 L (12.00-20.00) Ratio
[2020-08-23 15:24] LABS: Rheumatoid Factor, Qnt <4 IU/mL (0-13)
[2020-08-23] MEDS: FILGRASTIM-SNDZ 480 MCG/0.8 ML SYRINGE SQ SCH (16:57)
--- NOTE | 2020-08-23 17:35 | P.PN ---
Subjective Progress Note Date: 08/23/20 Principal diagnosis: Perirectal abscess. Leukopenia, neutropenia in follow-up today patient states feeling better than he did on admission, he is still dealing with some perianal pain. He is tolerating oral intake, he has no acute complaints otherwise Objective - Vital Signs Vital signs: Vital Signs Temp 98.6 F 08/23/20 14:00 Pulse 88 08/23/20 14:00 Resp 17 08/23/20 14:00 BP 149/86 08/23/20 14:00 Pulse Ox 97 08/23/20 14:00 Intake & Output 08/22/20 08/23/20 08/23/20 18:59 06:59 18:59 Intake Total 100 360 Balance 100 360 Intake: Oral 100 360 Other: Voiding Method Toilet # Voids 3 1 # Bowel Movements 1 - Constitutional General appearance: Present: average body habitus, cooperative, no acute distress - EENT Eyes: Present: anicteric sclerae, EOMI ENT: Present: hearing grossly normal, normal oropharynx - Respiratory Respiratory: bilateral: CTA - Cardiovascular Rhythm: regular Heart sounds: normal: S1, S2 Abnormal Heart Sounds: Absent: systolic murmur, diastolic murmur, rub, S3 Gallop, S4 Gallop, click, other - Peripheral edema leg Peripheral Edema: bilateral: None - Gastrointestinal General gastrointestinal: Present: normal bowel sounds, soft. Absent: absent bowel sounds, decreased bowel sounds, distended, hepatomegaly, hyperactive bowel sounds, organomegaly, rigid, scaphoid, splenomegaly, tenderness, umbilical hernia, ventral hernia - Integumentary Integumentary: Present: pale - Neurologic Neurologic: Present: CNII-XII intact - Musculoskeletal Musculoskeletal: Present: strength equal bilaterally - Psychiatric Psychiatric: Present: A&O x's 3, appropriate affect, intact judgment & insight - Labs CBC & Chem 7: 08/23/20 07:11 08/23/20 07:11 Labs: Abnormal Lab Results - Last 24 Hours (Table) 08/22/20 08/23/20 08/23/20 Range/Units 17:25 07:11 07:11 WBC 2.4 L 2.8 L (4.0-11.0) k/uL RBC 3.71 L 3.43 L (4.30-5.90) m/uL Hgb 12.7 L 11.8 L (13.0-17.5) gm/dL Hct 36.6 L 34.1 L (39.0-53.0) % Neutrophils # 0.7 L 0.9 L (1.3-7.7) k/uL Neutrophils # (Manual) 0.91 L (1.3-7.7) k/uL BUN 7.0 L (9.0-27.0) mg/dL BUN/Creatinine Ratio 7.00 L (12.00-20.00) Ratio Assessment and Plan (1) Leukopenia Narrative/Plan: Continue G-CSF daily for now. CBC with differential daily. lab work up for low WBC workup slowly returning, nothing to suggest proliferative condition, still pending mult labs. Differential still includes marrow suppression secondary to recent viral illness. Possibly related to chronic perirectal infection, abscess. If the patient's WBC does not improve or stabilize with G-CSF in conjunction with treatment of underlying infection additional studies-possibly a bone marrow?-may be considered as appropriate. I reviewed with patient that we would want to have all of the lab results back before we make any further decisions from a Hematology standpoint. He verbalized understanding Current Visit: Yes Status: Acute Priority: High Code(s): D72.819 - DECREASED WHITE BLOOD CELL COUNT, UNSPECIFIED SNOMED Code(s): 15807759
--- NOTE | 2020-08-23 22:58 | PN ---
PROGRESS NOTE DATE OF SERVICE: 08/23/2020 REASON FOR FOLLOWUP: Right perirectal area abscess, cellulitis. INTERVAL HISTORY: The patient is currently afebrile. Has been complaining of pain to the right perirectal area. Pain is about the same; no worsening or improvement. No further purulent drainage from the area. No chest pain, shortness of breath or cough. No abdominal pain or diarrhea. PHYSICAL EXAMINATION: Blood pressure is 149/86, pulse of 88, temperature 98.6. He is 97% on room air. General description is a middle-aged male lying in bed in no distress. RESPIRATORY SYSTEM: Unlabored breathing. Clear to auscultation anteriorly. HEART: S1, S2. Regular rate and rhythm. ABDOMEN: Soft. No tenderness. LABS: Hemoglobin is 11.8, white count 2.8. BUN of 7, creatinine 1.0. We did obtain culture yesterday; so far not seen in the system. DIAGNOSTIC IMPRESSION AND PLAN: Patient with right perirectal area abscess with spontaneous drainage, cellulitis. Patient is covered with Rocephin and Flagyl. Will try to locate his cultures that were obtained yesterday and monitor his clinical course closely. MMODL / IJN: [id number] /
--- NOTE | 2020-08-24 07:37 | P.PN ---
Subjective This is a pleasant 20 years old male with past medical history of hiatal hernia and acid reflux on omeprazole, obesity, smokes marijuana but no cigarette smoking or alcohol abuse. Presents because of perineal pain. Patient thought he has hemorrhoids for 10 days due to pain and tender swelling followed by himself, with some discharge and blood per rectum, he tried some sitz baths which did not help, gradually was getting worse and so he went to see his PCP Dr. Valera and respiratory there, therefore no hemorrhoids but they told him there is possible an abscess and therefore him to the hospital. Patient states that his pain is 5/10 in severity but he denies fever, no abdominal pain. He has painful defecation so he tried to keep his stool soft. No vomiting. He is hemodynamically stable and vitals and labs are reviewed. In the emergency room he was started on clindamycin, magnesium and potassium replaced per protocol. He is on normal saline 125 mL/h Pelvic CT was unremarkable 08/21/2020 Patient presents with rectal pain and stated there is some discharge of bleeding however when examined him this can looks normal and there is no wound or discharge but he was complaining of from tenderness in the left buttock area. Patient was admitted to the hospital for surgical team consultation. Dr. Caceres evaluated the patient today and recommended conservative management. However he should ice of antibiotic. No fever or leukocytosis. Because of this we will consult infectious disease team and we will check a C-reactive protein and Procalcitonin. Patient is on normal saline 75 mL/h 08/22/20 Patient is still complaining of from anal pain, and reports some drainage from his rectum although there is no objective evidence to light. However because of his persistent pain we repeated labs today which showed leukopenia and neutr openia. Infectious disease consult is called was started him on Rocephin and Flagyl. Hematology/oncology team are somewhat cuplike HIV, protein electrophoresis with CBC monitoring. No surgical intervention per surgery team and the recommended a sitz bath 08/23/2020 This is a pleasant 20 years old male who presents with rectal pain with no evidence of fever or leukocytosis. CT of the pelvis was unremarkable. Also patient noticed some discharge. Throughout his rectum per to come in the hospit al and couple times in-house here. Surgery team they just recommended conservative measures. Patient was started on ceftriaxone and Flagyl, today is not feeling improvement in his anal pain as he states. Labs also showed significant leukopenia and neutropenia at 0.35, hematology team placed patient on filgstram . There were some workup like protein electrophoresis, HIV and B12. Objective - Vital Signs Vital signs: Vital Signs Temp 99.0 F 08/24/20 01:15 Pulse 97 08/24/20 01:15 Resp 18 08/24/20 01:15 BP 157/61 08/24/20 01:15 Pulse Ox 97 08/24/20 01:15 Intake & Output 08/23/20 08/24/20 08/24/20 18:59 06:59 18:59 Intake Total 360 360 Balance 360 360 Intake: Oral 360 360 Other: Voiding Method Toilet # Voids 4 2 # Bowel Movements 1 - Exam GENERAL: The patient is alert and oriented x3, not in any acute distress. Well developed, well nourished. HEENT: Pupils are round and equally reacting to light. EOMI. No scleral icterus. No conjunctival pallor. Normocephalic, atraumatic. No pharyngeal erythema. No thyromegaly. CARDIOVASCULAR: S1 and S2 present. No murmurs, rubs, or gallops. PULMONARY: Chest is clear to auscultation, no wheezing or crackles. ABDOMEN: Soft, nontender, nondistended, normoactive bowel sounds. No palpable organomegaly. Rectal exam: Deferred today MUSCULOSKELETAL: No joint swelling or deformity. EXTREMITIES: No cyanosis, clubbing, or pedal edema. NEUROLOGICAL: Gross neurological examination did not reveal any focal deficits. SKIN: No rashes. no petechiae. - Labs CBC & Chem 7: 08/23/20 07:11 08/23/20 07:11 Labs: Abnormal Lab Results - Last 24 Hours (Table) 08/23/20 08/23/20 Range/Units 07:11 07:11 WBC 2.8 L (4.0-11.0) k/uL RBC 3.43 L (4.30-5.90) m/uL Hgb 11.8 L (13.0-17.5) gm/dL Hct 34.1 L (39.0-53.0) % Neutrophils # 0.9 L (1.3-7.7) k/uL BUN 7.0 L (9.0-27.0) mg/dL BUN/Creatinine Ratio 7.00 L (12.00-20.00) Ratio Assessment and Plan Assessment: -Perineal pain and tenderness, rule out perirectal abscess. surgery team recommended conservative treatment. Infectious" is appreciated and patient was started on antibiotics -Leukopenia/neutropenia, mostly secondary to his infection. Hematology/oncology input is appreciated and they recommended further workup as above -History of hiatal hernia, and acid reflux continue with PPI -Obesity with BMI of 34.1 -Substance abuse with marijuana DVT prophylaxis: Lovenox GI prophylaxis PPI
[2020-08-24] MEDS: FAMOTIDINE 20 MG/2 ML VIAL IV SCH ×2 (07:40→21:52)
[2020-08-24] MEDS: FILGRASTIM-SNDZ 480 MCG/0.8 ML SYRINGE SQ SCH (07:40)
[2020-08-24] MEDS: HEPARIN SODIUM,PORCINE/PF 5,000 UNIT/0.5 ML SYRINGE SQ SCH ×2 (07:40→21:52)
[2020-08-24] MEDS: metroNIDAZOLE 500 MG TAB PO SCH ×3 (07:41→21:52)
[2020-08-24] MEDS: MORPHINE SULFATE 4 MG/ML SYRINGE IVP PRN (09:30)
[2020-08-24 09:58] LABS: Basophils % (A) 0 %; Eosinophils # (A) 0.1 k/uL (0-0.7); Eosinophils % (A) 1 %; HCT 37.8 % (39.0-53.0); HGB 13.2 gm/dL (13.0-17.5); Lymphocytes # (A) 2.4 k/uL (1.0-4.8); Lymphocytes % (A) 50 %; MCH 35.1 pg (25.0-35.0); MCHC 34.9 g/dL (31.0-37.0); MCV 100.6 fL (80.0-100.0); Macrocytosis Slight; Mean Platelet Volume 6.8; Monocytes # (A) 0.1 k/uL (0-1.0); Monocytes % (A) 1 %; Neutrophils # (A) 2.2 k/uL (1.3-7.7); Neutrophils % (A) 47 %; Platelet Count 338 k/uL (150-450); RBC 3.76 m/uL (4.30-5.90); RDW 13.5 % (11.5-15.5); WBC 4.7 k/uL (4.0-11.0)
[2020-08-24] MEDS: DOCUSATE 100 MG CAP PO SCH ×2 (11:09→21:52)
--- NOTE | 2020-08-24 11:11 | PN ---
PROGRESS NOTE DATE OF SERVICE: 08/24/2020. REASON FOR FOLLOWUP: Right gluteal abscess and cellulitis/perirectal area. INTERVAL HISTORY: The patient is currently afebrile. Patient unchanged, feeling slightly better today. The patient denies having any chest pain or shortness of breath or cough. No abdominal pain. Did have some diarrhea. Did mention some more drainage from his right gluteal site. PHYSICAL EXAMINATION: Blood pressure 130/72 with a pulse of 98, temperature 98. He is 98% on room air. General description is a middle-aged male lying in bed in no distress. RESPIRATORY SYSTEM: Unlabored breathing, clear to auscultation anteriorly. HEART: S1, S2. Regular rate and rhythm. ABDOMEN: Soft, no tenderness. The right perirectal/gluteal area did have a small ulceration with mostly drainage on the swab, but no surrounding induration or redness. LABS: The patient's white count normalized to 4.7. Unfortunately, the cultures that were obtained has been lost. DIAGNOSTIC IMPRESSION AND PLAN: Patient with right perirectal/gluteal area abscess, spontaneous drainage and concern for cellulitis. CT did not show evidence of any fistula. Patient clinically responded to Rocephin, Flagyl to continue while waiting for the to finalize and monitor his clinical course closely. MMODL / IJN: [id number] /
--- NOTE | 2020-08-24 12:39 | P.PN ---
Subjective Progress Note Date: 08/24/20 CHIEF COMPLAINT: Perirectal pain HISTORY OF PRESENT ILLNESS: Surgical service is following regarding perirectal abscess. patient has been able to do the sitz baths. He reports increase in the drainage from the abscess. He reports that the Tylenol and Motrin do not really can't control his pain. He has required the IV morphine occasionally. Tolerating diet. Denies any nausea or vomiting. Patient did have a bowel movement today. He is asking for a stool softener. Afebrile PHYSICAL EXAM: VITAL SIGNS: Reviewed. GENERAL: Well-developed in no acute distress. HEENT: No sclera icterus. Extraocular movements grossly intact. Moist buccal mucosa. Head is atraumatic, normocephalic. ABDOMEN: Soft. Nondistended. Nontender. There is a small abscess about 1 cm in size on the left side of the anus that is painful with palpation and indurated NEUROLOGIC: Alert and oriented. Cranial nerves II through XII grossly intact. ASSESSMENT: 1. Rectal abscess with pain PLAN: -Recommend sitz bath for relief -Continue antibiotics -Continue IV morphine for breakthrough pain -Add Leonard for pain relief -Add Colace Physician Veterinary Technician note has been reviewed by physician. Signing provider agrees with the documented findings, assessment, and plan of care. Objective - Vital Signs Vital signs: Vital Signs Temp 98.0 F 08/24/20 07:55 Pulse 98 08/24/20 07:55 Resp 16 08/24/20 07:55 BP 130/72 08/24/20 07:55 Pulse Ox 98 08/24/20 07:55 Intake & Output 08/23/20 08/24/20 08/24/20 18:59 06:59 18:59 Intake Total 360 360 Balance 360 360 Intake: Oral 360 360 Other: Voiding Method Toilet # Voids 4 2 # Bowel Movements 1 - Labs CBC & Chem 7: 08/24/20 08:53 08/23/20 07:11 Labs: Abnormal Lab Results - Last 24 Hours (Table) 08/24/20 Range/Units 08:53 RBC 3.76 L (4.30-5.90) m/uL Hct 37.8 L (39.0-53.0) % MCV 100.6 H (80.0-100.0) fL MCH 35.1 H (25.0-35.0) pg
[2020-08-24 14:09] LABS: Albumin 4.13 g/dL (3.80-4.90); Gamma Globulin 0.82 g/dL (0.70-1.50)
[2020-08-24] MEDS: HYDROcodone/APAP 5-325MG 1 EACH TAB PO PRN ×2 (17:19→21:52)
--- NOTE | 2020-08-24 18:38 | P.PN ---
Subjective Progress Note Date: 08/24/20 Principal diagnosis: Perirectal abscess. Leukopenia, neutropenia In follow-up today patient is in better spirits, he is not complaining of as much perianal pain, he is moving around the room, no other complaints Objective - Vital Signs Vital signs: Vital Signs Temp 98.4 F 08/24/20 14:00 Pulse 99 08/24/20 14:00 Resp 16 08/24/20 14:00 BP 155/79 08/24/20 14:00 Pulse Ox 97 08/24/20 14:00 Intake & Output 08/23/20 08/24/20 08/24/20 18:59 06:59 18:59 Intake Total 360 360 360 Balance 360 360 360 Intake: Oral 360 360 360 Other: Voiding Method Toilet # Voids 4 2 3 # Bowel Movements 1 - Constitutional Constitutional Comment(s): patient in general looks better today General appearance: Present: average body habitus, cooperative, no acute distress - EENT Eyes: Present: anicteric sclerae, EOMI ENT: Present: hearing grossly normal - Respiratory Respiratory: bilateral: CTA - Cardiovascular Rhythm: regular Heart sounds: normal: S1, S2 Abnormal Heart Sounds: Absent: systolic murmur, diastolic murmur, rub, S3 Gallop, S4 Gallop, click, other - Peripheral edema leg Peripheral Edema: bilateral: None - Gastrointestinal General gastrointestinal: Present: normal bowel sounds, soft - Integumentary Integumentary: Present: pale - Neurologic Neurologic: Present: CNII-XII intact - Musculoskeletal Musculoskeletal: Present: strength equal bilaterally - Psychiatric Psychiatric: Present: A&O x's 3, appropriate affect, intact judgment & insight - Labs CBC & Chem 7: 08/24/20 08:53 08/23/20 07:11 Labs: Abnormal Lab Results - Last 24 Hours (Table) 08/24/20 Range/Units 08:53 RBC 3.76 L (4.30-5.90) m/uL Hct 37.8 L (39.0-53.0) % MCV 100.6 H (80.0-100.0) fL MCH 35.1 H (25.0-35.0) pg Assessment and Plan (1) Leukopenia Narrative/Plan: Continue G-CSF daily for now. CBC with differential daily. lab work up for low WBC workup slowly returning, nothing to suggest proliferative condition, still pending mult labs. Differential still includes marrow suppression secondary to recent viral illness. Possibly related to chronic perirectal infection, abscess. If the patient's WBC does not improve or stabilize with G-CSF in conjunction with treatment of underlying infection additional studies-possibly a bone marrow?-may be considered as appropriate. I reviewed with patient that we would want to have all of the lab results back before we make any further decisions from a Hematology standpoint. He verbalized understanding labs were not reported until after iron seen patient. His WBC is normal, ANC is 2.2. Continue G-CSF this evening, will reassess CBC in a.m. and consider d iscontinuation tomorrow. Anticipate improvement having to do with patient treating underlying infection. She does look better today. The rest of the workup reported later in the day as well. Patient does not have a paraproteinemia, no deficiencies. We'll discuss the above with the patient in the morning. Current Visit: Yes Status: Acute Priority: High Code(s): D72.819 - DECREASED WHITE BLOOD CELL COUNT, UNSPECIFIED SNOMED Code(s): 43944905
[2020-08-25 06:41] LABS: Basophils % (A) 1 %; Eosinophils # (A) 0.1 k/uL (0-0.7); Eosinophils % (A) 1 %; HCT 35.1 % (39.0-53.0); HGB 11.9 gm/dL (13.0-17.5); Lymphocytes # (A) 2.5 k/uL (1.0-4.8); Lymphocytes % (A) 56 %; MCH 34.7 pg (25.0-35.0); MCHC 33.8 g/dL (31.0-37.0); MCV 102.6 fL (80.0-100.0); Macrocytosis Slight; Mean Platelet Volume 6.7; Monocytes % (A) 1 %; Neutrophils # (A) 1.8 k/uL (1.3-7.7); Neutrophils % (A) 39 %; Platelet Count 321 k/uL (150-450); RBC 3.42 m/uL (4.30-5.90); RDW 14.4 % (11.5-15.5); WBC 4.5 k/uL (4.0-11.0)
[2020-08-25 07:13] VITALS: RESP 16
[2020-08-25 07:30] LABS: Methylmalonic Acid 0.17 umol/L (<0.40)
[2020-08-25] MEDS: HYDROcodone/APAP 5-325MG 1 EACH TAB PO PRN ×2 (08:26→14:46)
[2020-08-25] MEDS: metroNIDAZOLE 500 MG TAB PO SCH ×2 (08:28→16:21)
[2020-08-25] MEDS: FILGRASTIM-SNDZ 480 MCG/0.8 ML SYRINGE SQ SCH (08:28)
[2020-08-25] MEDS: HEPARIN SODIUM,PORCINE/PF 5,000 UNIT/0.5 ML SYRINGE SQ SCH (08:28)
[2020-08-25] MEDS: DOCUSATE 100 MG CAP PO SCH ×2 (08:29→14:50)
[2020-08-25] MEDS: FAMOTIDINE 20 MG/2 ML VIAL IV SCH (08:29)
--- NOTE | 2020-08-25 11:10 | PN ---
PROGRESS NOTE DATE OF SERVICE: 08/25/2020 REASON FOR FOLLOWUP: Right perirectal/gluteal area wound and cellulitis. INTERVAL HISTORY: The patient is currently afebrile. The patient mentioned he is feeling better as well as pain and discomfort to the right perirectal is concerned. Denies having any chest pain, shortness of breath or cough. No abdominal pain or diarrhea. PHYSICAL EXAMINATION: Blood pressure is 114/66, pulse of 67, temperature 97.4. He 92% on room air. General description is a young male lying in bed in no distress. RESPIRATORY SYSTEM: Unlabored breathing, clear to auscultation anteriorly. HEART: S1, S2. Regular rate and rhythm. ABDOMEN: Soft, no tenderness. LABS: Hemoglobin 11.9, white count 4.5. HIV testing remains to be pending. Cultures were lost. DIAGNOSTIC IMPRESSION AND PLAN: Patient with right perirectal/gluteal area abscess cellulitis, spontaneous drainage. Cultures were lost. The patient clinically responded to Rocephin and Flagyl. Transition to oral Ceftin and Flagyl for 10 days. Prescription sent to pharmacy. Advised follow up in the office as his HIV test is still pending and continue supportive care. MMODL / IJN: [id number] /
--- NOTE | 2020-08-25 12:55 | P.PN ---
Subjective Progress Note Date: 08/25/20 CHIEF COMPLAINT: Perirectal pain HISTORY OF PRESENT ILLNESS: Surgical service is following regarding perirectal abscess. Patient reports improvement in his pain. He continues to have drainage from the abscess. He has been doing the sitz baths. He is tolerating diet. He is afebrile. WBC 4.5 hemoglobin 11.9 platelets 321 PHYSICAL EXAM: VITAL SIGNS: Reviewed. GENERAL: Well-developed in no acute distress. HEENT: No sclera icterus. Extraocular movements grossly intact. Moist buccal mucosa. Head is atraumatic, normocephalic. ABDOMEN: Soft. Nondistended. Nontender. There is a small abscess about 1 cm in size on the left side of the anus that is painful with palpation and indurated NEUROLOGIC: Alert and oriented. Cranial nerves II through XII grossly intact. ASSESSMENT: 1. Rectal abscess with pain PLAN: -Recommend sitz bath for relief -Continue antibiotics per ID -Patient is stable from surgical standpoint for discharge Physician Job Placement Officer note has been reviewed by physician. Signing provider agrees with the documented findings, assessment, and plan of care. Objective - Vital Signs Vital signs: Vital Signs Temp 97.4 F L 08/25/20 07:12 Pulse 67 08/25/20 07:12 Resp 16 08/25/20 07:12 BP 114/66 08/25/20 07:12 Pulse Ox 92 L 08/25/20 07:12 Intake & Output 08/24/20 08/25/20 08/25/20 18:59 06:59 18:59 Intake Total 360 760 Balance 360 760 Intake: Oral 360 760 Other: Voiding Method Toilet Toilet # Voids 3 3 - Labs CBC & Chem 7: 08/25/20 06:06 08/23/20 07:11 Labs: Abnormal Lab Results - Last 24 Hours (Table) 08/25/20 Range/Units 06:06 RBC 3.42 L (4.30-5.90) m/uL Hgb 11.9 L (13.0-17.5) gm/dL Hct 35.1 L (39.0-53.0) % MCV 102.6 H (80.0-100.0) fL
[2020-08-25 14:10] VITALS: BP 134/73; PULSE 83; TEMP 97.9
--- NOTE | 2020-08-25 15:02 | P.PN ---
Subjective Progress Note Date: 08/25/20 Principal diagnosis: Perirectal abscess. Leukopenia, neutropenia In follow-up today patient cont to be feeling decent, doing overall good, pain is improved, ambulatory. No fever, chills, no other complaints Objective - Vital Signs Vital signs: Vital Signs Temp 97.9 F 08/25/20 14:00 Pulse 83 08/25/20 14:00 Resp 16 08/25/20 14:00 BP 134/73 08/25/20 14:00 Pulse Ox 96 08/25/20 14:00 Intake & Output 08/24/20 08/25/20 08/25/20 18:59 06:59 18:59 Intake Total 360 760 Balance 360 760 Intake: Oral 360 760 Other: Voiding Method Toilet Toilet # Voids 3 3 - Constitutional General appearance: Present: average body habitus, cooperative, no acute distress - EENT Eyes: Present: anicteric sclerae, EOMI ENT: Present: hearing grossly normal - Respiratory Respiratory: bilateral: CTA - Cardiovascular Heart sounds: normal: S1, S2 - Gastrointestinal General gastrointestinal: Present: normal bowel sounds, soft - Integumentary Integumentary: Present: pale - Neurologic Neurologic: Present: CNII-XII intact - Musculoskeletal Musculoskeletal: Present: strength equal bilaterally - Psychiatric Psychiatric: Present: A&O x's 3, appropriate affect, intact judgment & insight - Labs CBC & Chem 7: 08/25/20 06:06 08/23/20 07:11 Labs: Abnormal Lab Results - Last 24 Hours (Table) 08/25/20 Range/Units 06:06 RBC 3.42 L (4.30-5.90) m/uL Hgb 11.9 L (13.0-17.5) gm/dL Hct 35.1 L (39.0-53.0) % MCV 102.6 H (80.0-100.0) fL Assessment and Plan (1) Leukopenia Narrative/Plan: Continue G-CSF daily for now. CBC with differential daily. Please needs CBC outpt for WBC/ANC. Work up neg for malignant proliferative condition. Recommend, if DC, CBC cont to be monitored. Refer back to Hem if persistent or progressive. Current Visit: Yes Status: Acute Priority: High Code(s): D72.819 - DECREASED WHITE BLOOD CELL COUNT, UNSPECIFIED SNOMED Code(s): 66442835
[2020-08-27 20:57] LABS: HIV 2 AB Non-Reactive (Non-Reactive); HIV AB P24 Non-Reactive (Non-Reactive); HIV P24 AG Non-Reactive (Non-Reactive)
--- NOTE | 2020-09-09 13:00 | P.DS ---
Providers Date of admission: 08/19/20 23:01 Expected date of discharge: 08/25/20 Attending physician: Emily Jay Consults: 08/20/20 14:53 Consult Physician Routine Consulting Provider: Gui Manley Consult Reason/Comments: Rectal Abscess Do you want consulting provider notified?: Yes 08/21/20 17:11 Consult Physician Routine Consulting Provider: Rosina Hurley Consult Reason/Comments: rectal abscess Do you want consulting provider notified?: Yes 08/22/20 14:02 Consult Physician Urgent Consulting Provider: Justino Hill Consult Reason/Comments: neutropenia Do you want consulting provider notified?: Yes Primary care physician: Moraima Iyer Hospital Course: Discharge diagnosis -Perineal pain and tenderness, due to perirectal abscess. surgery team recommended conservative treatment. patient was started on antibiotics -Leukopenia/neutropenia, mostly secondary to his infection. Hematology/oncology has seen the pt. likely due to inection. improved now. -History of hiatal hernia, and acid reflux continue with PPI -Obesity with BMI of 34.1 -Substance abuse with marijuana DVT prophylaxis: Lovenox GI prophylaxis PPI Hospital course This is a pleasant 20 years old male with past medical history of hiatal hernia and acid reflux on omeprazole, obesity, smokes marijuana but no cigarette smoking or alcohol abuse. Presents because of perineal pain. Patient thought he has hemorrhoids for 10 days due to pain and tender swelling followed by himself, with some discharge and blood per rectum, he tried some sitz baths which did not help, gradually was getting worse and so he went to see his PCP Dr. Valera and respiratory there, therefore no hemorrhoids but they told him there is possible an abscess and therefore him to the hospital. Patient states that his pain is 5/10 in severity but he denies fever, no abdominal pain. He has painful defecation so he tried to keep his stool soft. No vomiting. He is hemodynamically stable and vitals and labs are reviewed. In the emergency room he was started on clindamycin, magnesium and potassium replaced per protocol. He is on normal saline 125 mL/h Pelvic CT was unremarkable 08/21/2020 Patient presents with rectal pain and stated there is some discharge of bleeding however when examined him this can looks normal and there is no wound or discharge but he was complaining of from tenderness in the left buttock area. Patient was admitted to the hospital for surgical team consultation. Dr. Caceres evaluated the patient today and recommended conservative management. However he should ice of antibiotic. No fever or leukocytosis. Because of this we will consult infectious disease team and we will check a C-reactive protein and Procalcitonin. Patient is on normal saline 75 mL/h 08/22/20 Patient is still complaining of from anal pain, and reports some drainage from his rectum although there is no objective evidence to light. However because of his persistent pain we repeated labs today which showed leukopenia and neutropenia. Infectious disease consult is called was started him on Rocephin and Flagyl. Hematology/oncology team are somewhat cuplike HIV, protein electrophoresis with CBC monitoring. No surgical intervention per surgery team and the recommended a sitz bath 08/23/2020 This is a pleasant 20 years old male who presents with rectal pain with no evidence of fever or leukocytosis. CT of the pelvis was unremarkable. Also patient noticed some discharge. Throughout his rectum per to come in the hospital and couple times in-house here. Surgery team they just recommended conservative measures. Patient was started on ceftriaxone and Flagyl, today is not feeling improvement in his anal pain as he states. Labs also showed significant leukopenia and neutropenia at 0.35, hematology team placed patient on filgstram . There were some workup like protein electrophoresis, HIV and B12. 08/24/2020 Patient was admitted to the hospital due to rectal abscess. General surgery is planning for incision and drainage. Otherwise pain is controlled with medications. No complaints of fever or chills. No nausea vomiting abdominal pain or diarrhea. Patient is requesting stool softeners. Also patient is able to use sitz bath's. Currently being continued on IV antibiotics. And morphine for breakthrough pain. Currently on stool softeners. General surgery and oncology is on board. Leukopenia is improving. Continued on G-CSF at this time. As per oncology nothing to suggest proliferative condition, still pending mult labs. Differential still includes marrow suppression secondary to recent viral illness. Lab data showed WBC improved to 4.7 and hemoglobin 13.2 and MCV 100.6 and platelets 338 neutrophils went up to 2.2. MERY negative and HIV and SARS COVID-19 is also negative. Follow-up CBC and BMP tomorrow. 08/25/2020 Patient states that his rectal pain is better. General surgery recommends conservative management and continued sitz bath's. Pain is much improved now. No complaints of fever or chills. No nausea vomiting or abdominal pain or diarrhea. Patient did have a bowel movement. Patient will be continued on stool softeners and antibiotics. Otherwise leukocyte count improved to 4.5 today. Hematological work-up for neutropenia is negative. Likely due to infection. Cleared from ID and oncology standpoint. Patient be discharged home with oral antibiotic course and follow-up as an outpatient. - Exam GENERAL: The patient is alert and oriented x3, not in any acute distress. Well developed, well nourished. HEENT: Pupils are round and equally reacting to light. EOMI. No scleral icterus. No conjunctival pallor. Normocephalic, atraumatic. No pharyngeal erythema. No thyromegaly. CARDIOVASCULAR: S1 and S2 present. No murmurs, rubs, or gallops. PULMONARY: Chest is clear to auscultation, no wheezing or crackles. ABDOMEN: Soft, nontender, nondistended, normoactive bowel sounds. No palpable organomegaly. Rectal exam: Deferred today MUSCULOSKELETAL: No joint swelling or deformity. EXTREMITIES: No cyanosis, clubbing, or pedal edema. NEUROLOGICAL: Gross neurological examination did not reveal any focal deficits. SKIN: No rashes. no petechiae. Vital Signs Temp 97.9 F 08/25/20 14:00 Pulse 83 08/25/20 14:00 Resp 16 08/25/20 14:00 BP 134/73 08/25/20 14:00 Pulse Ox 96 08/25/20 14:00 Intake & Output 08/24/20 08/25/20 08/25/20 18:59 06:59 18:59 Intake Total 360 760 Balance 360 760 Intake: Oral 360 760 Other: Voiding Method Toilet Toilet # Voids 3 3 Patient Condition at Discharge: Stable Plan - Discharge Summary Discharge Rx Participant: No New Discharge Prescriptions: New Cefuroxime Axetil [Ceftin] 500 mg PO BID 10 Days #20 tab Docusate [Colace] 100 mg PO BID PRN #30 cap PRN Reason: Constipation metroNIDAZOLE [Flagyl] 500 mg PO Q8HR #30 tab Continue Omeprazole 20 mg PO HS Discharge Medication List Omeprazole 20 mg PO HS 08/19/20 [History] Cefuroxime Axetil [Ceftin] 500 mg PO BID 10 Days #20 tab 08/25/20 [Rx] Docusate [Colace] 100 mg PO BID PRN #30 cap 08/25/20 [Rx] metroNIDAZOLE [Flagyl] 500 mg PO Q8HR #30 tab 08/25/20 [Rx] Follow up Appointment(s)/Referral(s): Jaylon Valera MD [Primary Care Provider] - 09/01/20 9:30 am Rosina Hurley MD [STAFF PHYSICIAN] - 09/06/20 2:15 pm Patient Instructions/Handouts: Hypokalemia (DC), Abscess (GEN) Discharge Disposition: HOME SELF-CARE
== END 2020-08-25 17:23 | disposition home or self-care (01) | DRG 394 ==
LOC: EC 18:54 → 4SSUR 23:01 → 1SOBS 23:29 → 6PED 08-20 00:33 → 1SOBS 08-20 01:10 → 4SSUR 08-20 16:33
PROVIDERS: ADMIT Hospitalist; ATTEND Hospitalist
DX: K61.1 Rectal abscess (principal); K62.5 Hemorrhage of anus and rectum; D70.9 Neutropenia, unspecified; E66.9 Obesity, unspecified; Z20.822 Contact with and (suspected) exposure to COVID-19; Z68.34 Body mass index [BMI] 34.0-34.9, adult; E83.42 Hypomagnesemia; E87.6 Hypokalemia; J45.909 Unspecified asthma, uncomplicated; K21.9 Gastro-esophageal reflux disease without esophagitis; K44.9 Diaphragmatic hernia without obstruction or gangrene; R19.7 Diarrhea, unspecified; Z79.899 Other long term (current) drug therapy; Z90.49 Acquired absence of other specified parts of digestive tract; Z87.19 Personal history of other diseases of the digestive system; Z98.811 Dental restoration status; Z98.890 Other specified postprocedural states; Z88.0 Allergy status to penicillin; Z88.2 Allergy status to sulfonamides; Z91.048 Other nonmedicinal substance allergy status; Z83.3 Family history of diabetes mellitus; Z82.49 Family history of ischemic heart disease and other diseases of the circulatory system; Z82.3 Family history of stroke; Z83.49 Family history of other endocrine, nutritional and metabolic diseases
CPT/HCPCS: 36415; 72193; 80048; 80053; 82607; 82747; 83735; 83883; 83921; 84145; 84165; 85025; 86038; 86140; 86334; 86431; 87390; 87636; 96365; 99285

== ENCOUNTER 2020-09-15 18:11 | Emergency (ER) | payer OTHER ==
[2020-09-15 18:16] VITALS: RESP 18
[2020-09-15] MEDS ORDERED: KETOROLAC 15 MG/ML 1 ML VIAL IVP STA (19:19)
[2020-09-15] MEDS ORDERED: SODIUM CHLORIDE 0.9% 1,000 ML IV ONE (19:20)
[2020-09-15 20:19] LABS: Basophils % (A) 1 %; Eosinophils % (A) 1 %; HCT 31.8 % (39.0-53.0); HGB 11.3 gm/dL (13.0-17.5); Lymphocytes # (A) 2.6 k/uL (1.0-4.8); Lymphocytes % (A) 78 %; MCH 35.9 pg (25.0-35.0); MCHC 35.6 g/dL (31.0-37.0); MCV 100.9 fL (80.0-100.0); Macrocytosis Slight; Mean Platelet Volume 6.5; Monocytes % (A) 0 %; Neutrophils # (A) 0.6 k/uL (1.3-7.7); Neutrophils % (A) 19 %; Platelet Count 285 k/uL (150-450); RBC 3.15 m/uL (4.30-5.90); RDW 14.7 % (11.5-15.5); WBC 3.3 k/uL (4.0-11.0)
[2020-09-15 20:32] LABS: ALT 39 U/L (4-49); AST 25 U/L (17-59); African American GFR (CKD) >90 (>60 ml/min/1.73 sqM); Albumin 4.7 g/dL (3.5-5.0); Alkaline Phosphatase 53 U/L (38-126); Anion Gap 8 mmol/L; Blood Urea Nitrogen 11 mg/dL (9-20); Calcium 9.9 mg/dL (8.4-10.2); Carbon Dioxide 27 mmol/L (22-30); Chloride 106 mmol/L (98-107); Glucose 91 mg/dL (74-99); Non-African American GFR(CKD) >90 (>60 ml/min/1.73 sqM); Sodium 141 mmol/L (137-145); Total Bilirubin 0.7 mg/dL (0.2-1.3); Total Protein 7.1 g/dL (6.3-8.2)
--- NOTE | 2020-09-15 20:35 | ED ---
Skin/Abscess/FB HPI - General Chief complaint: Skin/Abscess/Foreign Body Stated complaint: Male Time Seen by Provider: 09/15/20 19:02 Source: patient Mode of arrival: ambulatory Limitations: no limitations - History of Present Illness Initial comments: 20 year-old male patient presents to the emergency department today for evaluation of pain and purulent drainage from around the anus. Patient states that he was diagnosed with perianal abscess about 2 weeks ago. He was admitted for IV antibiotics, the abscess ruptured spontaneously so did not require surgical drainage. Patient states he was doing better, but started to have increased pain about three days ago. Denies any fever or chills. Denies nausea or vomiting. Patient denies any recent rash, cough, shortness of breath, chest pain, abdominal pain, diarrhea, constipation, back pain, numbness, tingling, dizziness, weakness, hematuria, dysuria, urinary urgency, urinary frequency, headache, visual changes, or any other complaints. - Related Data Home Medications Medication Instructions Recorded Confirmed Omeprazole 20 mg PO HS 08/19/20 08/19/20 Previous Rx's Medication Instructions Recorded Cefuroxime Axetil [Ceftin] 500 mg PO BID 10 Days #20 tab 08/25/20 Docusate [Colace] 100 mg PO BID PRN #30 cap 08/25/20 metroNIDAZOLE [Flagyl] 500 mg PO Q8HR #30 tab 08/25/20 Cefuroxime Axetil [Ceftin] 500 mg PO BID #20 tab 09/15/20 metroNIDAZOLE [Flagyl] 500 mg PO TID #30 tab 09/15/20 Allergies Allergy/AdvReac Type Severity Reaction Status Date / Time adhesive Allergy Rash/Hives Verified 09/15/20 18:13 amoxicillin Allergy Rash/Hives. Verified 09/15/20 18:13 SWELLING. Sulfa (Sulfonamide Allergy Unknown Verified 09/15/20 18:13 Antibiotics) Review of Systems ROS Statement: Those systems with pertinent positive or pertinent negative responses have been documented in the HPI. ROS Other: All systems not noted in ROS Statement are negative. Past Medical History Past Medical History: Asthma, GERD/Reflux Additional Past Medical History / Comment(s): Bronchitis History of Any Multi-Drug Resistant Organisms: None Reported Past Surgical History: Appendectomy Additional Past Surgical History / Comment(s): Dental procedures, EGD Past Anesthesia/Blood Transfusion Reactions: No Reported Reaction, Family History of Problems w/ Anesthesia Additional Past Anesthesia/Blood Transfusion Reaction / Comment(s): Mother has PONV Past Psychological History: No Psychological Hx Reported Smoking Status: Never smoker Past Alcohol Use History: None Reported Past Drug Use History: Marijuana - Past Family History Mother Family Medical History: CVA/TIA, Diabetes Mellitus, Hyperlipidemia, Hypertension Additional Family Medical History / Comment(s): TIA Father Family Medical History: CVA/TIA Additional Family Medical History / Comment(s): TIA General Exam Limitations: no limitations General appearance: alert, in no apparent distress, other (This is a well- developed, well-nourished adult male patient in no acute distress. Vital signs upon presentation temperature 99.4F, pulse 70, respirations 18, blood pressure 168/85, pulse ox 98% on room air per) Respiratory exam: Present: normal lung sounds bilaterally. Absent: respiratory distress, wheezes, rales, rhonchi, stridor Cardiovascular Exam: Present: regular rate, normal rhythm, normal heart sounds. Absent: systolic murmur, diastolic murmur, rubs, gallop, clicks GI/Abdominal exam: Present: soft, normal bowel sounds. Absent: distended, tenderness, guarding, rebound, rigid Rectal exam: Present: tenderness (perianal), other (purulent drainage) Neurological exam: Present: alert, oriented X3, CN II-XII intact Psychiatric exam: Present: normal affect, normal mood Skin exam: Present: warm, dry, intact, normal color. Absent: rash Course Vital Signs 09/15/20 09/15/20 18:13 21:27 Temperature 99.4 F 98.1 F Pulse Rate 70 87 Respiratory 18 18 Rate Blood Pressure 168/85 142/81 O2 Sat by Pulse 98 98 Oximetry Medical Decision Making - Medical Decision Making 20-year-old male patient presents to the emergency department today for evaluation of renal pain and purulent drainage. Patient was diagnosed. No abscess 2 weeks ago had been doing better when symptoms worsened again 3 days ago. Physical examination did reveal some tenderness surrounding the anus with obvious purulent drainage. No significant swelling or erythema. He is currently afebrile. Labs reviewed did reveal white blood cell count at 3.3. He will be restarted on antibiotics as they did seem to help him. He is instructed to follow-up with surgery for further evaluation. Instructed to follow up with his primary care physician for recheck in 1-2 days. Return parameters were discussed in detail. He verbalizes understanding and agrees with this plan. Case discussed with my attending Dr. Márquez. - Lab Data Result diagrams: 09/15/20 20:01 09/15/20 20:01 Lab Results 09/15/20 09/15/20 Range/Units 20:01 20:01 WBC 3.3 L (4.0-11.0) k/uL RBC 3.15 L (4.30-5.90) m/uL Hgb 11.3 L (13.0-17.5) gm/dL Hct 31.8 L (39.0-53.0) % MCV 100.9 H (80.0-100.0) fL MCH 35.9 H (25.0-35.0) pg MCHC 35.6 (31.0-37.0) g/dL RDW 14.7 (11.5-15.5) % Plt Count 285 (150-450) k/uL MPV 6.5 Neutrophils % 19 % Lymphocytes % 78 % Monocytes % 0 % Eosinophils % 1 % Basophils % 1 % Neutrophils # 0.6 L (1.3-7.7) k/uL Lymphocytes # 2.6 (1.0-4.8) k/uL Monocytes # 0.0 (0-1.0) k/uL Eosinophils # 0.0 (0-0.7) k/uL Basophils # 0.0 (0-0.2) k/uL Manual Slide Review Performed Macrocytosis Slight Sodium 141 (137-145) mmol/L Potassium 4.0 (3.5-5.1) mmol/L Chloride 106 (98-107) mmol/L Carbon Dioxide 27 (22-30) mmol/L Anion Gap 8 mmol/L BUN 11 (9-20) mg/dL Creatinine 0.88 (0.66-1.25) mg/dL Est GFR (CKD-EPI)AfAm >90 (>60 ml/min/1.73 sqM) Est GFR (CKD-EPI)NonAf >90 (>60 ml/min/1.73 sqM) Glucose 91 (74-99) mg/dL Calcium 9.9 (8.4-10.2) mg/dL Total Bilirubin 0.7 (0.2-1.3) mg/dL AST 25 (17-59) U/L ALT 39 (4-49) U/L Alkaline Phosphatase 53 (38-126) U/L Total Protein 7.1 (6.3-8.2) g/dL Albumin 4.7 (3.5-5.0) g/dL Disposition Clinical Impression: Perianal abscess Disposition: HOME SELF-CARE Condition: Good Instructions (If sedation given, give patient instructions): Abscess (ED) Additional Instructions: Warm sits baths or warm compresses to the area several times daily. Complete antibiotic prescription in full. Follow-up with surgeon for further evaluation in 1-2 days. Return for any new, worsening, or concerning symptoms. Prescriptions: Cefuroxime Axetil [Ceftin] 500 mg PO BID #20 tab metroNIDAZOLE [Flagyl] 500 mg PO TID #30 tab Is patient prescribed a controlled substance at d/c from ED?: No Referrals: Jaylon Valera MD [Primary Care Provider] - 1-2 days Time of Disposition: 21:08
[2020-09-15] MEDS ORDERED: metroNIDAZOLE 500 MG TAB PO STA (21:06)
[2020-09-15] MEDS ORDERED: cefTRIAXone IN SWFI 1,000 MG/10 ML SYRINGE IVP STA (21:06)
[2020-09-15] MEDS ORDERED: ACET/COD 300 MG/30 MG STARTER PACK 6 TAB BTL PO STA (21:08)
[2020-09-15 22:43] VITALS: BP 142/81; PULSE 87; TEMP 98.1
== END 2020-09-15 21:28 | disposition home or self-care (01) ==
LOC: EC 18:11
DX: K61.0 Anal abscess (principal); J45.909 Unspecified asthma, uncomplicated; K21.9 Gastro-esophageal reflux disease without esophagitis; F12.90 Cannabis use, unspecified, uncomplicated
CPT/HCPCS: 36415; 80053; 85025; 87040; 96361; 96374; 96375; 99282

== ENCOUNTER 2020-11-19 12:23 | Inpatient (IN) | payer OTHER ==
[2020-11-19] MEDS ORDERED: SODIUM CHLORIDE 0.9% 500 ML 500 ML IV STA (12:47)
[2020-11-19] MEDS ORDERED: ACETAMINOPHEN TAB 325 MG TAB PO STA (13:04)
--- NOTE | 2020-11-19 13:16 | XR ---
EXAMINATION TYPE: XR chest 2V DATE OF EXAM: 11/19/2020 COMPARISON: NONE HISTORY: Chest pain TECHNIQUE: Frontal and lateral views of the chest are obtained. FINDINGS: There is no focal air space opacity. No evidence for pneumothorax. No pleural effusion. The cardiac silhouette size is within normal limits. The osseous structures are grossly intact. IMPRESSION: 1. No acute cardiopulmonary process.
[2020-11-19 13:18] LABS: ALT 46 U/L (4-49); AST 65 U/L (17-59); African American GFR (CKD) >90 (>60 ml/min/1.73 sqM); Albumin 3.8 g/dL (3.5-5.0); Alkaline Phosphatase 50 U/L (38-126); Anion Gap 4 mmol/L; Blood Urea Nitrogen 12 mg/dL (9-20); Calcium 9.3 mg/dL (8.4-10.2); Carbon Dioxide 29 mmol/L (22-30); Chloride 108 mmol/L (98-107); Glucose 104 mg/dL (74-99); Lipase 60 U/L (23-300); Magnesium 1.6 mg/dL (1.6-2.3); Non-African American GFR(CKD) >90 (>60 ml/min/1.73 sqM); Potassium 3.9 mmol/L (3.5-5.1); Sodium 141 mmol/L (137-145); Total Bilirubin 0.3 mg/dL (0.2-1.3)
[2020-11-19 13:27] LABS: MCH 37.5 pg (25.0-35.0); MCHC 35.7 g/dL (31.0-37.0); MCV 105.2 fL (80.0-100.0); Macrocytosis Moderate; Mean Platelet Volume 7.4; RBC 1.87 m/uL (4.30-5.90); WBC 10.7 k/uL (4.0-11.0)
[2020-11-19] MEDS ORDERED: FAMOTIDINE 20 MG/2 ML VIAL IV STA (13:32)
[2020-11-19] MEDS ORDERED: MAG HYDROX/AL HYDROX/SIMETH 30 ML, HYOSCYAMINE ELIXIR 10 ML, LIDOCAINE VISCOUS 2% 10 ML PO STA ×3 (13:32)
[2020-11-19 13:35] LABS: HCT 19.7 % (39.0-53.0)
--- NOTE | 2020-11-19 13:35 | ED ---
General Adult HPI - General Chief complaint: Chest Pain Stated complaint: Chest Pain Time Seen by Provider: 11/19/20 12:26 Source: patient Mode of arrival: EMS Limitations: no limitations - History of Present Illness Initial comments: 20-year-old male with a past medical history of asthma, GERD presents to the emergency room for a chief complaint of chest pain. Patient reports that he noticed this last night after eating pizza. States is a sharp and burning pain in his chest. States coughing worsens the pain as well as certain positions. Patient denies being sick recently such as cough congestion sore throat. He denies fevers or chills at home. Admits to mild shortness of breath. Patient has no other complaints at this time including abdominal pain, nausea or vomiting, headache, or visual changes. - Related Data Previous Rx's Medication Instructions Recorded Cefuroxime Axetil [Ceftin] 500 mg PO BID #20 tab 09/15/20 metroNIDAZOLE [Flagyl] 500 mg PO TID #30 tab 09/15/20 Allergies Allergy/AdvReac Type Severity Reaction Status Date / Time adhesive Allergy Rash/Hives Verified 11/19/20 15:19 amoxicillin Allergy Rash/Hives. Verified 11/19/20 15:19 SWELLING. Penicillins Allergy Rash/Hives Verified 11/19/20 15:19 Sulfa (Sulfonamide Allergy Rash/Hives Verified 11/19/20 15:19 Antibiotics) Review of Systems ROS Statement: Those systems with pertinent positive or pertinent negative responses have been documented in the HPI. ROS Other: All systems not noted in ROS Statement are negative. Past Medical History Past Medical History: Asthma, GERD/Reflux Additional Past Medical History / Comment(s): Bronchitis History of Any Multi-Drug Resistant Organisms: None Reported Past Surgical History: Appendectomy Additional Past Surgical History / Comment(s): Dental procedures, EGD Past Anesthesia/Blood Transfusion Reactions: No Reported Reaction, Family History of Problems w/ Anesthesia Additional Past Anesthesia/Blood Transfusion Reaction / Comment(s): Mother has PONV Past Psychological History: No Psychological Hx Reported Smoking Status: Never smoker Past Alcohol Use History: None Reported Past Drug Use History: Marijuana - Past Family History Mother Family Medical History: CVA/TIA, Diabetes Mellitus, Hyperlipidemia, Hypertension Additional Family Medical History / Comment(s): TIA Father Family Medical History: CVA/TIA Additional Family Medical History / Comment(s): TIA General Exam Limitations: no limitations General appearance: alert, in no apparent distress Head exam: Present: atraumatic, normocephalic, normal inspection Eye exam: Present: normal appearance, PERRL, EOMI. Absent: scleral icterus, conjunctival injection, periorbital swelling ENT exam: Present: normal exam, mucous membranes moist Neck exam: Present: normal inspection, full ROM. Absent: tenderness, meningismus, lymphadenopathy Respiratory exam: Present: normal lung sounds bilaterally. Absent: respiratory distress, wheezes, rales, rhonchi, stridor Cardiovascular Exam: Present: regular rate, normal rhythm, normal heart sounds. Absent: systolic murmur, diastolic murmur, rubs, gallop, clicks GI/Abdominal exam: Present: soft, normal bowel sounds. Absent: distended, tenderness, guarding, rebound, rigid Neurological exam: Present: alert Course Vital Signs 11/19/20 11/19/20 12:27 15:21 Temperature 100.3 F H 99.8 F H Pulse Rate 105 H 90 Respiratory 16 18 Rate Blood Pressure 159/87 146/86 O2 Sat by Pulse 99 98 Oximetry EKG Findings - EKG Comments: EKG Findings:: Sinus tachycardia, ventricular rate 106, IN interval 132, QTc 443 Medical Decision Making - Medical Decision Making 20-year-old male presents to the emergency room for a chief complaint of burning chest pain. This did happen after eating. Upon presentation patient does have a fever of 100.3, on repeat temperature at is 100.6. EKG nonischemic. Sinus tachycardia noted. Lab evaluation was initiated. This did reveal anemia with hemoglobin of 7. CBC was repeated to ensure accuracy which was consistent with a hemoglobin of 6.9. Patient also has thrombocytopenia and neutropenia noted. Patient has 49% blast cells. The pathologist did contact me with his concerns the patient should have a bone marrow biopsy given concern for hematologic malignancy. CMP was unremarkable however d-dimer was elevated at 8. CT of the chest abdomen and pelvis was obtained. Chest CT was negative for PE however patient did have multiple axillary and esophageal lymph nodes noted. CT abdomen and pelvis revealed multiple enlarged periaortic lymph nodes in the retroperitoneum as well as mesenteric lymph nodes. Given dominant left axillary lymphadenopathy consider systemic infectious or inflammatory etiology, tissue sampling may be recommended. We will admit patient and consult hematology oncology. We will start him on broad-spectrum antibiotics vancomycin, cefepime and Flagyl given his penicillin ALLERGY since he has a neutropenic fever. Blood cultures pending. Echocardiogram was also ordered given chest pain and fever. This may be more related to patient's gastric reflux however we will consult cardiology for their opinion. - Lab Data Result diagrams: 11/19/20 13:42 11/19/20 12:59 Lab Results 11/19/20 11/19/20 11/19/20 Range/Units 12:59 12:59 12:59 WBC 10.7 (4.0-11.0) k/uL RBC 1.87 L (4.30-5.90) m/uL Hgb 7.0 L D (13.0-17.5) gm/dL Hct 19.7 L* (39.0-53.0) % MCV 105.2 H (80.0-100.0) fL MCH 37.5 H (25.0-35.0) pg MCHC 35.7 (31.0-37.0) g/dL RDW 16.0 H (11.5-15.5) % Plt Count 49 L D (150-450) k/uL MPV 7.4 Neutrophils % % Neutrophils % (Manual) 3 % Band Neuts % (Manual) 1 % Lymphocytes % Lymphocytes % (Manual) 46 % Monocytes % Monocytes % (Manual) 2 % Eosinophils % Basophils % Blast Cells % 49 H* % Neutrophils # Neutrophils # (Manual) 0.40 L* (1.3-7.7) k/uL Lymphocytes # Lymphocytes # (Manual) 4.92 H (1.0-4.8) k/uL Monocytes # Monocytes # (Manual) 0.21 (0-1.0) k/uL Eosinophils # Basophils # Blast Cells # (Man) 5.24 H (0) k/uL Nucleated RBCs 0 (0-0) /100 WBC Pathologist Review See comment A Macrocytosis Moderate PT 10.5 (9.0-12.0) sec INR 1.0 (<1.2) APTT 20.6 L (22.0-30.0) sec D-Dimer 8.06 H (<0.60) mg/L FEU Sodium 141 (137-145) mmol/L Potassium 3.9 (3.5-5.1) mmol/L Chloride 108 H (98-107) mmol/L Carbon Dioxide 29 (22-30) mmol/L Anion Gap 4 mmol/L BUN 12 (9-20) mg/dL Creatinine 0.96 (0.66-1.25) mg/dL Est GFR (CKD-EPI)AfAm >90 (>60 ml/min/1.73 sqM) Est GFR (CKD-EPI)NonAf >90 (>60 ml/min/1.73 sqM) Glucose 104 H (74-99) mg/dL Plasma Lactic Acid Milind (0.7-2.0) mmol/L Calcium 9.3 (8.4-10.2) mg/dL Magnesium 1.6 (1.6-2.3) mg/dL Total Bilirubin 0.3 (0.2-1.3) mg/dL AST 65 H (17-59) U/L ALT 46 (4-49) U/L Alkaline Phosphatase 50 (38-126) U/L Troponin I (0.000-0.034) ng/mL Total Protein 6.0 L (6.3-8.2) g/dL Albumin 3.8 (3.5-5.0) g/dL Lipase 60 (23-300) U/L Urine Color Urine Appearance (Clear) Urine pH (5.0-8.0) Ur Specific [place] (1.001-1.035) Urine Protein (Negative) Urine Glucose (UA) (Negative) Urine Ketones (Negative) Urine Blood (Negative) Urine Nitrite (Negative) Urine Bilirubin (Negative) Urine Urobilinogen (<2.0) mg/dL Ur Leukocyte Esterase (Negative) Coronavirus (PCR) (Not Detectd) Blood Type Blood Type Confirm Blood Type Recheck Bld Type Recheck Status Antibody Screen Spec Expiration Date 11/19/20 11/19/20 11/19/20 Range/Units 12:59 12:59 12:59 WBC (4.0-11.0) k/uL RBC (4.30-5.90) m/uL Hgb (13.0-17.5) gm/dL Hct (39.0-53.0) % MCV (80.0-100.0) fL MCH (25.0-35.0) pg MCHC (31.0-37.0) g/dL RDW (11.5-15.5) % Plt Count (150-450) k/uL MPV Neutrophils % % Neutrophils % (Manual) % Band Neuts % (Manual) % Lymphocytes % Lymphocytes % (Manual) % Monocytes % Monocytes % (Manual) % Eosinophils % Basophils % Blast Cells % % Neutrophils # Neutrophils # (Manual) (1.3-7.7) k/uL Lymphocytes # Lymphocytes # (Manual) (1.0-4.8) k/uL Monocytes # Monocytes # (Manual) (0-1.0) k/uL Eosinophils # Basophils # Blast Cells # (Man) (0) k/uL Nucleated RBCs (0-0) /100 WBC Pathologist Review Macrocytosis PT (9.0-12.0) sec INR (<1.2) APTT (22.0-30.0) sec D-Dimer (<0.60) mg/L FEU Sodium (137-145) mmol/L Potassium (3.5-5.1) mmol/L Chloride (98-107) mmol/L Carbon Dioxide (22-30) mmol/L Anion Gap mmol/L BUN (9-20) mg/dL Creatinine (0.66-1.25) mg/dL Est GFR (CKD-EPI)AfAm (>60 ml/min/1.73 sqM) Est GFR (CKD-EPI)NonAf (>60 ml/min/1.73 sqM) Glucose (74-99) mg/dL Plasma Lactic Acid Milind 0.7 (0.7-2.0) mmol/L Calcium (8.4-10.2) mg/dL Magnesium (1.6-2.3) mg/dL Total Bilirubin (0.2-1.3) mg/dL AST (17-59) U/L ALT (4-49) U/L Alkaline Phosphatase (38-126) U/L Troponin I <0.012 (0.000-0.034) ng/mL Total Protein (6.3-8.2) g/dL Albumin (3.5-5.0) g/dL Lipase (23-300) U/L Urine Color Urine Appearance (Clear) Urine pH (5.0-8.0) Ur Specific [place] (1.001-1.035) Urine Protein (Negative) Urine Glucose (UA) (Negative) Urine Ketones (Negative) Urine Blood (Negative) Urine Nitrite (Negative) Urine Bilirubin (Negative) Urine Urobilinogen (<2.0) mg/dL Ur Leukocyte Esterase (Negative) Coronavirus (PCR) Not Detected (Not Detectd) Blood Type Blood Type Confirm Blood Type Recheck Bld Type Recheck Status Antibody Screen Spec Expiration Date 11/19/20 11/19/20 11/19/20 Range/Units 13:42 13:42 13:45 WBC 9.9 (4.0-11.0) k/uL RBC 1.84 L (4.30-5.90) m/uL Hgb 6.9 L* (13.0-17.5) gm/dL Hct 19.5 L* (39.0-53.0) % MCV 105.9 H (80.0-100.0) fL MCH 37.4 H (25.0-35.0) pg MCHC 35.3 (31.0-37.0) g/dL RDW 15.8 H (11.5-15.5) % Plt Count 51 L (150-450) k/uL MPV 7.5 Neutrophils % % Neutrophils % (Manual) % Band Neuts % (Manual) % Lymphocytes % Not Reportable Lymphocytes % (Manual) % Monocytes % Not Reportable Monocytes % (Manual) % Eosinophils % Not Reportable Basophils % Not Reportable Blast Cells % % Neutrophils # Not Reportable Neutrophils # (Manual) (1.3-7.7) k/uL Lymphocytes # Not Reportable Lymphocytes # (Manual) (1.0-4.8) k/uL Monocytes # Not Reportable Monocytes # (Manual) (0-1.0) k/uL Eosinophils # Not Reportable Basophils # Not Reportable Blast Cells # (Man) (0) k/uL Nucleated RBCs (0-0) /100 WBC Pathologist Review Cancelled Macrocytosis Moderate PT (9.0-12.0) sec INR (<1.2) APTT (22.0-30.0) sec D-Dimer (<0.60) mg/L FEU Sodium (137-145) mmol/L Potassium (3.5-5.1) mmol/L Chloride (98-107) mmol/L Carbon Dioxide (22-30) mmol/L Anion Gap mmol/L BUN (9-20) mg/dL Creatinine (0.66-1.25) mg/dL Est GFR (CKD-EPI)AfAm (>60 ml/min/1.73 sqM) Est GFR (CKD-EPI)NonAf (>60 ml/min/1.73 sqM) Glucose (74-99) mg/dL Plasma Lactic Acid Milind (0.7-2.0) mmol/L Calcium (8.4-10.2) mg/dL Magnesium (1.6-2.3) mg/dL Total Bilirubin (0.2-1.3) mg/dL AST (17-59) U/L ALT (4-49) U/L Alkaline Phosphatase (38-126) U/L Troponin I (0.000-0.034) ng/mL Total Protein (6.3-8.2) g/dL Albumin (3.5-5.0) g/dL Lipase (23-300) U/L Urine Color Light Yellow Urine Appearance Clear (Clear) Urine pH 6.5 (5.0-8.0) Ur Specific [place] 1.012 (1.001-1.035) Urine Protein Negative (Negative) Urine Glucose (UA) Negative (Negative) Urine Ketones Negative (Negative) Urine Blood Negative (Negative) Urine Nitrite Negative (Negative) Urine Bilirubin Negative (Negative) Urine Urobilinogen <2.0 (<2.0) mg/dL Ur Leukocyte Esterase Negative (Negative) Coronavirus (PCR) (Not Detectd) Blood Type AB Positive Blood Type Confirm Blood Type Recheck No Previous Record Bld Type Recheck Status CABO Indicated Antibody Screen NEGATIVE Spec Expiration Date 11/22/2020 - 234111/19/20 Range/Units 13:48 WBC (4.0-11.0) k/uL RBC (4.30-5.90) m/uL Hgb (13.0-17.5) gm/dL Hct (39.0-53.0) % MCV (80.0-100.0) fL MCH (25.0-35.0) pg MCHC (31.0-37.0) g/dL RDW (11.5-15.5) % Plt Count (150-450) k/uL MPV Neutrophils % % Neutrophils % (Manual) % Band Neuts % (Manual) % Lymphocytes % Lymphocytes % (Manual) % Monocytes % Monocytes % (Manual) % Eosinophils % Basophils % Blast Cells % % Neutrophils # Neutrophils # (Manual) (1.3-7.7) k/uL Lymphocytes # Lymphocytes # (Manual) (1.0-4.8) k/uL Monocytes # Monocytes # (Manual) (0-1.0) k/uL Eosinophils # Basophils # Blast Cells # (Man) (0) k/uL Nucleated RBCs (0-0) /100 WBC Pathologist Review Macrocytosis PT (9.0-12.0) sec INR (<1.2) APTT (22.0-30.0) sec D-Dimer (<0.60) mg/L FEU Sodium (137-145) mmol/L Potassium (3.5-5.1) mmol/L Chloride (98-107) mmol/L Carbon Dioxide (22-30) mmol/L Anion Gap mmol/L BUN (9-20) mg/dL Creatinine (0.66-1.25) mg/dL Est GFR (CKD-EPI)AfAm (>60 ml/min/1.73 sqM) Est GFR (CKD-EPI)NonAf (>60 ml/min/1.73 sqM) Glucose (74-99) mg/dL Plasma Lactic Acid Milind (0.7-2.0) mmol/L Calcium (8.4-10.2) mg/dL Magnesium (1.6-2.3) mg/dL Total Bilirubin (0.2-1.3) mg/dL AST (17-59) U/L ALT (4-49) U/L Alkaline Phosphatase (38-126) U/L Troponin I (0.000-0.034) ng/mL Total Protein (6.3-8.2) g/dL Albumin (3.5-5.0) g/dL Lipase (23-300) U/L Urine Color Urine Appearance (Clear) Urine pH (5.0-8.0) Ur Specific [place] (1.001-1.035) Urine Protein (Negative) Urine Glucose (UA) (Negative) Urine Ketones (Negative) Urine Blood (Negative) Urine Nitrite (Negative) Urine Bilirubin (Negative) Urine Urobilinogen (<2.0) mg/dL Ur Leukocyte Esterase (Negative) Coronavirus (PCR) (Not Detectd) Blood Type Blood Type Confirm AB Positive Blood Type Recheck Bld Type Recheck Status Antibody Screen Spec Expiration Date Disposition Clinical Impression: Anemia, Thrombocytopenia, Neutropenic fever, Lymphadenopathy, Chest pain Disposition: ADMITTED IP TO THIS HOSP Condition: Serious Is patient prescribed a controlled substance at d/c from ED?: No Referrals: Jaylon Valera MD [Primary Care Provider] - 1-2 days Time of Disposition: 15:34
[2020-11-19 13:56] LABS: Prothrombin Time 10.5 sec (9.0-12.0)
[2020-11-19 14:04] LABS: MCH 37.4 pg (25.0-35.0); MCHC 35.3 g/dL (31.0-37.0); MCV 105.9 fL (80.0-100.0); Macrocytosis Moderate; Mean Platelet Volume 7.5; RBC 1.84 m/uL (4.30-5.90); RDW 15.8 % (11.5-15.5); WBC 9.9 k/uL (4.0-11.0)
[2020-11-19] MEDS ORDERED: VANCOMYCIN IV PER PHARMACY 1 EACH MISC MISCELLANE PRN (14:09)
[2020-11-19 14:10] LABS: HCT 19.5 % (39.0-53.0); HGB 6.9 gm/dL (13.0-17.5)
[2020-11-19] MEDS ORDERED: cefTRIAXone IN SWFI 1,000 MG/10 ML SYRINGE IVP STA (14:11)
[2020-11-19 14:12] LABS: Partial Thromboplastin Time 20.6 sec (22.0-30.0)
[2020-11-19 14:18] LABS: Appearance,Urine Clear (Clear); Bilirubin,Urine Negative (Negative); Blood,Urine Negative (Negative); Color,Urine Light Yellow; Glucose,Urine (UA) Negative (Negative); Ketones,Urine Negative (Negative); Leukocyte Esterase,Urine Negative (Negative); Nitrite,Urine Negative (Negative); PH, Urine 6.5 (5.0-8.0); Protein,Urine Negative (Negative); Specific Gravity,Urine 1.012 (1.001-1.035); Urobilinogen,Urine <2.0 mg/dL (<2.0)
[2020-11-19 14:24] LABS: Neutrophils % (M) 3 %
[2020-11-19 14:26] LABS: Band Neutrophils % 1 %; Lymphocytes # (M) 4.92 k/uL (1.0-4.8); Monocytes # (M) 0.21 k/uL (0-1.0)
[2020-11-19 14:27] LABS: Blast Cells # (M) 5.24 k/uL (0); Nucleated Red Blood Cells 0 /100 WBC (0-0); Total Cells Counted 200
[2020-11-19] MEDS ORDERED: VANCOMYCIN 1,750 MG in SODIUM CHLORIDE 0.9% 250 ML IVPB ONE (14:30)
[2020-11-19] MEDS ORDERED: VANCOMYCIN 1,750 MG in SODIUM CHLORIDE 0.9% 500 ML 500 ML IVPB ONE (14:30)
[2020-11-19 14:32] LABS: Platelet Count 49 k/uL (150-450)
[2020-11-19] MEDS ORDERED: CEFEPIME 2 GM in SODIUM CHLORIDE 0.9% 100 ML IVPB STA (14:32)
[2020-11-19 14:35] LABS: Platelet Count 51 k/uL (150-450)
--- NOTE | 2020-11-19 15:01 | CT ---
EXAMINATION TYPE: CT chest angio for PE DATE OF EXAM: 11/19/2020 COMPARISON: None HISTORY: Shortness of breath and chest pain CT DLP: 1757.5 mGycm CONTRAST: CT chest with contrast and 3D reconstruction with MIP imaging is performed with IV Contrast, patient injected with 100 mL of Isovue 370. Contrast-enhanced CT of the chest was performed through the course of the pulmonary arteries with yesenia g and mediastinal window settings submitted. 3D reconstruction with MIP imaging was also performed. PULMONARY ARTERIES: The pulmonary arteries and their major tributaries are patent. I do not see gem dence for sizable filling defect to suggest pulmonary embolic process. LUNGS: The lungs are clear and free of infiltrate. No evidence for atelectasis. No pulmonary nodule or mass is detected. No pleural effusion. MEDIASTINUM: Thoracic aorta is of normal caliber.. The heart is not enlarged. No evidence for media stinal mass. Azygo esophageal prominence noted may reflect additional adenopathy measuring 1.8 cm. HILAR STRUCTURES: No evidence for mass. No hilar lymph nodes greater than 1 cm. UPPER ABDOMEN: No significant abnormality is seen. Other: There are multiple enlarged left axillary lymph nodes identified measuring up to 3.3 cm. IMPRESSION: 1. No evidence for Pulmonary embolism at this time. 2. Left axillary adenopathy and possibly Azygo esophageal adenopathy as noted above.
--- NOTE | 2020-11-19 15:13 | CT ---
EXAMINATION TYPE: CT abdomen pelvis w con DATE OF EXAM: 11/19/2020 COMPARISON: CT pelvis 08/19/2020 HISTORY: 20-year-old male anemia, Generalized pain TECHNIQUE: Contiguous axial scanning of the abdomen and pelvis following administration of 100 ml Iso becca 300 IV contrast. Delayed images through the kidneys and coronal/sagittal reconstructions perform ed. CT DLP: 1757.5 mGycm Automated exposure control for dose reduction was used. FINDINGS: Chest reported separately. Liver mildly enlarged at 19.2 cm. No focal lesion seen. No biliary ductal dilatation. Portal venous s ystem is patent. Gallbladder, adrenal glands, kidneys, spleen with small posterior splenule, and pancreas within michell l limits. No dilated small bowel, free fluid, or free air. There are a few prominent and mildly enlarged left periaortic lymph nodes measuring up to 1.5 cm in t he retroperitoneum, for example, axial image 35 and coronal image 54. Also, numerous nonenlarged mese nteric lymph nodes are present. Surgical material at the inferior aspect of the cecum suggesting prior appendectomy. Mild liquid stoo l in the right side of the colon. Small amount of solid stool in the rectum. No pericolonic inflammat ory change. Mild circumferential bladder wall thickening. Prostate gland normal size. No abnormal fluid collectio n in the pelvis. Borderline size left external iliac chain lymph node measures 1.0 cm. Bones: Transitional lumbosacral segment with a sacralized L5. IMPRESSION: 1. MILD HEPATOMEGALY (19.2 CM). 2. A FEW PROMINENT AND MILDLY ENLARGED LEFT PERIAORTIC LYMPH NODES IN THE RETROPERITONEUM MEASURING U P TO 1.5 CM. NUMEROUS NONENLARGED MESENTERIC LYMPH NODES ARE ALSO PRESENT. GIVEN THE DOMINANT LEFT AX ILLARY LYMPHADENOPATHY, CONSIDER A SYSTEMIC INFECTIOUS OR INFLAMMATORY ETIOLOGY. IF THERE IS PERSISTE NCE OR PROGRESSIVE ENLARGEMENT OF THE LEFT AXILLARY LYMPH NODE, TISSUE SAMPLING IS RECOMMENDED. 3. MILD CIRCUMFERENTIAL BLADDER WALL THICKENING. CORRELATE TO EXCLUDE CYSTITIS.
[2020-11-19] MEDS ORDERED: metroNIDAZOLE-NS PMX 500 MG in SALINE 1 100ML.BAG IVPB STA (15:26)
[2020-11-19] MEDS ORDERED: NALOXONE 0.4 MG/ML 1 ML VIAL IV PRN (15:36)
[2020-11-19] MEDS ORDERED: SODIUM CHLORIDE 0.9% 1,000 ML IV SCH (15:45)
[2020-11-19] MEDS ORDERED: PANTOPRAZOLE 40 MG/10 ML VIAL IVP SCH (18:15)
--- NOTE | 2020-11-19 18:35 | ECHOF ---
Referral Reason:chest pain, fever MEASUREMENTS -------- HEIGHT: 170.2 cm WEIGHT: 102.1 kg BP: RVIDd: 2.8 cm (< 3.3) IVSd: 1.2 cm (0.6 - 1.1) LVIDd: 4.7 cm (3.9 - 5.3) LVPWd: 1.7 cm (0.6 - 1.1) IVSs: 1.3 cm LVIDs: 3.1 cm LVPWs: 1.8 cm LA Diam: 3.6 cm (2.7 - 3.8) Ao Diam: 3.2 cm (2.0 - 3.7) AV Cusp: 1.7 cm (1.5 - 2.6) LA Diam: 4.1 cm (2.7 - 3.8) MV EXCURSION: 21.866 mm (> 18.000) MV EF SLOPE: 143 mm/s (70 - 150) EPSS: 0.2 cm MV E Thaddeus: 1.26 m/s MV DecT: 130 ms MV A Thaddeus: 0.81 m/s MV E/A Ratio: 1.56 RAP: 5.00 mmHg RVSP: 14.10 mmHg FINDINGS -------- Sinus rhythm. This was a technically good study. The left ventricular size is normal. There is mild concentric left ventricular hypertrophy. Overa ll left ventricular systolic function is normal with, an EF between 60 - 65 %. The right ventricle is normal in size. The left atrial size is normal. The right atrial size is normal. The aortic valve is trileaflet, and appears structurally normal. No aortic stenosis or regurgitation. Mild mitral regurgitation is present. Mild tricuspid regurgitation present. Right ventricular systolic pressure is normal at < 35 mmHg. There is no pulmonic regurgitation present. There is no pericardial effusion. CONCLUSIONS -------- 1. The left ventricular size is normal. 2. There is mild concentric left ventricular hypertrophy. 3. Overall left ventricular systolic function is normal with, an EF between 60 - 65 %. 4. The right ventricle is normal in size. 5. The left atrial size is normal. 6. The right atrial size is normal. 7. The aortic valve is trileaflet, and appears structurally normal. No aortic stenosis or regurgitati on. 8. Mild mitral regurgitation is present. 9. Mild tricuspid regurgitation present. 10. There is no pericardial effusion. BRIM RAISER: Cheryl Tran RDCS
[2020-11-19 20:04] LABS: Anisocytosis Slight; MCH 38.9 pg (25.0-35.0); MCHC 36.3 g/dL (31.0-37.0); Macrocytosis Marked; Mean Platelet Volume 7.2; RBC 1.69 m/uL (4.30-5.90); RDW 16.8 % (11.5-15.5)
[2020-11-19 20:15] LABS: HGB 6.6 gm/dL (13.0-17.5)
[2020-11-19 20:16] LABS: HCT 18.1 % (39.0-53.0); Platelet Count 50 k/uL (150-450)
[2020-11-19 20:52] LABS: Blast Cells # (M) 3.96 k/uL (0); Lymphocytes # (M) 6.63 k/uL (1.0-4.8); Neutrophils # (M) 0.11 k/uL (1.3-7.7); Neutrophils % (M) 1 %; Nucleated Red Blood Cells 1 /100 WBC (0-0); Total Cells Counted 100; WBC 10.7 k/uL (4.0-11.0)
[2020-11-19] MEDS ORDERED: HYDROcodone/APAP 7.5-325MG 1 EACH TAB PO PRN (20:52)
[2020-11-19] MEDS ORDERED: ACETAMINOPHEN TAB 325 MG TAB PO PRN (20:52)
[2020-11-19 22:27] LABS: Total Bilirubin 0.3 mg/dL (0.2-1.3); Uric Acid 5.8 mg/dL (3.5-8.5)
--- NOTE | 2020-11-19 22:31 | P.HPIM ---
History of Present Illness H&P Date: 11/19/20 Chief Complaint: Chest Pain Patient is a 20-year-old male with a known history of perirectal abscess with spontaneous rupture and drainage in August 2020 during recent admission. Patient did have neutropenia at that time and was given GSF with improvement in WBC count, asthma, GERD and daily marijuana use. Patient was given antibiotics in the form of Ceftin and Flagyl upon discharge. Patient did complete his antibiotic course and patient was again having rectal pain. Patient was again started on antibiotics as an outpatient which he is currently taking for the past 2 weeks. Patient presents to ER with complaints of chest pain. Patient states that he has been having pain since last night. Midsternal and epigastric region. Sharp burning type of pain. Denied any radiation. Associated nausea. No episodes of vomiting. Patient states that she has been having shortness of breath, exertional dyspnea and tiredness for the past 1 week. No leg swelling. No headache or dizziness or lightheadedness. Laboratory data showed WBC 10.7 hemoglobin 7.0 and platelets 49 and MCV 105.2 Blast cells 5 to 10% and absolute neutrophils 0.4 D-dimer is 8.06 Sodium 141 potassium 3.9 chloride 108 BUN 12 and creatinine 0.96 AST 65 alk phos 50 and ALT 46 Troponin 0.012, lipase 60 UA negative for infection Coronavirus PCR not detected. CT abdomen pelvis showed mild hepatomegaly. Few prominent and mildly enlarged left periaortic lymph nodes in the retroperitoneum measuring up to 1.5 cm. Numerous nonenlarged mesenteric lymph nodes are also present. Consider systemic infectious or inflammatory etiology. CT angiogram of the chest showed no evidence of PE. 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 On admission blood pressure 159/87 pulse 105 and respiration 16 and T-max 100.3, pulse ox 99% on room air. Review of Systems Constitutional: Subjective fevers. No chills. . Patient does have generalized weakness and exertional dyspnea.. Abdomen: Patient denied nausea vomiting and diarrhea and abdominal pain. Cardiovascular: Patient does have chest pain. Mild shortness of breath. No palpitation no leg swelling.. Respiratory: patient denied any cough or sputum production. No shortness of breath Neurologic: Patient denied any numbness or tingling headache. Musculoskeletal: Patient denies any complaints of joint swelling or deformity. Skin: Negative Psychiatric: Negative Endocrine: No heat or cold intolerance. No recent weight gain. Genitourinary: No dysuria or hematuria. All other 14 point ROS negative except the above Past Medical History Past Medical History: Asthma, GERD/Reflux Additional Past Medical History / Comment(s): Bronchitis, perirectal abscess for 3 months and still current. History of Any Multi-Drug Resistant Organisms: None Reported Past Surgical History: Appendectomy Additional Past Surgical History / Comment(s): Dental procedures, EGD, Past Anesthesia/Blood Transfusion Reactions: No Reported Reaction, Family Histo ry of Problems w/ Anesthesia Additional Past Anesthesia/Blood Transfusion Reaction / Comment(s): Mother has PONV Past Psychological History: No Psychological Hx Reported Additional Psychological History / Comment(s): Pt resides with his mother. He does not drive, his mother drives. Smoking Status: Never smoker Past Alcohol Use History: None Reported Past Drug Use History: Marijuana Additional Drug Use History / Comment(s): Pt smokes two joints a day. - Past Family History Mother Family Medical History: CVA/TIA, Diabetes Mellitus, Hyperlipidemia, Hypertension Additional Family Medical History / Comment(s): TIA Father Family Medical History: CVA/TIA Additional Family Medical History / Comment(s): TIA Medications and Allergies Home Medications Medication Instructions Recorded Confirmed Type Cefuroxime Axetil [Ceftin] 500 mg PO BID #20 tab 09/15/20 11/19/20 Rx metroNIDAZOLE [Flagyl] 500 mg PO TID #30 tab 09/15/20 11/19/20 Rx Allergies Allergy/AdvReac Type Severity Reaction Status Date / Time adhesive Allergy Rash/Hives Verified 11/19/20 15:19 amoxicillin Allergy Rash/Hives. Verified 11/19/20 15:19 SWELLING. Penicillins Allergy Rash/Hives Verified 11/19/20 15:19 Sulfa (Sulfonamide Allergy Rash/Hives Verified 11/19/20 15:19 Antibiotics) Physical Exam Vitals: Vital Signs Temp Pulse Pulse Resp BP BP Pulse Ox 11/19/20 20:09 99.6 F 96 17 158/81 98 11/19/20 18:12 100.3 F H 101 H 17 145/76 98 11/19/20 15:21 99.8 F H 90 18 146/86 98 11/19/20 12:27 100.3 F H 105 H 16 159/87 99 Intake and Output 07/30/21 07/30/21 07/30/21 06:59 14:59 22:59 Intake Total 240 Balance 240 Intake: Oral 240 Other: Weight 102.058 kg 102.058 kg PHYSICAL EXAMINATION: Patient is lying in the bed comfortably, no acute distress, awake alert and oriented.. HEENT: Normocephalic. Neck is supple. Pupils reactive. Nostrils clear. Oral ca vity is moist. Neck reveals no JVD, carotid bruits, or thyromegaly. Left axillary lymphadenopathy. CHEST EXAMINATION: Trachea is central. Symmetrical expansion. Lung hernández clear to auscultation and percussion. CARDIAC: Normal S1, S2 with no gallops. No murmurs ABDOMEN: Soft. Bowel sounds normal. No organomegaly. No abdominal bruits. Extremities: reveal no edema. No clubbing or cyanosis Neurologically awake, alert, oriented x3 with well-coordinated movements. No focal deficits noted Skin: No rash or skin lesions. Psychiatric: Coperative. Nonsuicidal Musculoskeletal: No joint swelling or deformity. Normal range of motion. Results CBC & Chem 7: 11/19/20 19:34 11/19/20 12:59 Labs: Abnormal Lab Results - Last 24 Hours (Table) 11/19/20 11/19/20 11/19/20 Range/Units 12:59 12:59 12:59 RBC 1.87 L (4.30-5.90) m/uL Hgb 7.0 L D (13.0-17.5) gm/dL Hct 19.7 L* (39.0-53.0) % MCV 105.2 H (80.0-100.0) fL MCH 37.5 H (25.0-35.0) pg RDW 16.0 H (11.5-15.5) % Plt Count 49 L D (150-450) k/uL Blast Cells % 49 H* % Neutrophils # (Manual) 0.40 L* (1.3-7.7) k/uL Lymphocytes # (Manual) 4.92 H (1.0-4.8) k/uL Blast Cells # (Man) 5.24 H (0) k/uL Nucleated RBCs (0-0) /100 WBC Pathologist Review See comment A Macrocytosis APTT 20.6 L (22.0-30.0) sec D-Dimer 8.06 H (<0.60) mg/L FEU Chloride 108 H (98-107) mmol/L Glucose 104 H (74-99) mg/dL AST 65 H (17-59) U/L Total Protein 6.0 L (6.3-8.2) g/dL 11/19/20 11/19/20 Range/Units 13:42 19:34 RBC 1.84 L 1.69 L (4.30-5.90) m/uL Hgb 6.9 L* 6.6 L* (13.0-17.5) gm/dL Hct 19.5 L* 18.1 L* (39.0-53.0) % MCV 105.9 H 107.0 H (80.0-100.0) fL MCH 37.4 H 38.9 H (25.0-35.0) pg RDW 15.8 H 16.8 H (11.5-15.5) % Plt Count 51 L 50 L (150-450) k/uL Blast Cells % 37 H* % Neutrophils # (Manual) 0.11 L* (1.3-7.7) k/uL Lymphocytes # (Manual) 6.63 H (1.0-4.8) k/uL Blast Cells # (Man) 3.96 H (0) k/uL Nucleated RBCs 1 H (0-0) /100 WBC Pathologist Review Macrocytosis Marked A APTT (22.0-30.0) sec D-Dimer (<0.60) mg/L FEU Chloride (98-107) mmol/L Glucose (74-99) mg/dL AST (17-59) U/L Total Protein (6.3-8.2) g/dL Thrombosis Risk Factor Assmnt - DVT/VTE Prophylaxis DVT/VTE Prophylaxis: Mechanical Prophylaxis ordered - Choose All That Apply Each Risk Factor Represents 2 Points: Malignancy Thrombosis Risk Factor Assessment Total Risk Factor Score: 2 Thrombosis Risk Factor Assessment Level: Low Risk Assessment and Plan Assessment: Neutropenic fever. Anemia and thrombocytopenia with increased blast cells. 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 Epigastric chest pain possible acute gastritis. Ruled out ACS. Elevated D-dimer level. CTA negative for PE Recent admission with a perirectal abscess. Spontaneous rupture and status post antibiotic course. GI and DVT prophylaxis. Plan: Patient will be continued on broad-spectrum antibiotics in the form of vancomycin cefepime. Continue with IV hydration. Follow-up culture reports. CT of the abdomen pelvis and CTA chest was done. Follow-up 2D echocardiogram report to rule out any vegetations due to recent infection.. Oncology will be consulted. Continue to follow closely. Prognosis guarded at this time. Time with Patient: Greater than 30
[2020-11-19 22:34] LABS: Reticulocyte % 0.8 % (0.5-2.0)
[2020-11-19] MEDS: CEFEPIME 2 GM in SODIUM CHLORIDE 0.9% 100 ML IVPB SCH ×2 (22:55→23:05)
[2020-11-19] MEDS ORDERED: ONDANSETRON 4 MG/2 ML VIAL IVP PRN (23:06)
[2020-11-20 01:38] VITALS: RESP 18
[2020-11-20] MEDS ORDERED: VANCOMYCIN 1,750 MG in SODIUM CHLORIDE 0.9% 500 ML 500 ML IVPB SCH (02:00)
[2020-11-20 02:59] LABS: % Iron Saturation 76.21 (15.00-50.00)
[2020-11-20 03:05] VITALS: BP 136/75; PULSE 105; TEMP 98.8
[2020-11-20 04:07] LABS: Ferritin 1164.5 ng/mL (22.0-322.0)
[2020-11-20 06:05] LABS: Folate, Serum 9.8 ng/mL
--- NOTE | 2020-11-20 11:51 | P.CONS ---
History of Present Illness - Reason for Consult Consult date: 11/19/20 blasts Requesting physician: Merly Pereira - Chief Complaint fever - History of Present Illness Mr. Laboy is a very pleasant 20 yo male with history of rectal abscess for the past couple months, here for fevers and chest discomfort. work up with anemia, thrombocytopenia, normal WBC with 50% blasts. CT CAP with diffuse LAD. Admitted. He is overall feeling well other than the chest discomfort and fevers. He has been following with GI for his rectal abscesses. Has been on antibiotics the majority of the time since the last time he was in the hospital in August until now. We did see him in August for mild leukopenia in the setting of rectal abscesses which resolved with G-CSF. He does not have any CBCs drawn between his admission in August until now. Past Medical History Past Medical History: Asthma, GERD/Reflux Additional Past Medical History / Comment(s): Bronchitis, perirectal abscess for 3 months and still current. History of Any Multi-Drug Resistant Organisms: None Reported Past Surgical History: Appendectomy Additional Past Surgical History / Comment(s): Dental procedures, EGD, Past Anesthesia/Blood Transfusion Reactions: No Reported Reaction, Family History of Problems w/ Anesthesia Additional Past Anesthesia/Blood Transfusion Reaction / Comm: Mother has PONV Past Psychological History: No Psychological Hx Reported Additional Psychological History / Comment(s): Pt resides with his mother. He does not drive, his mother drives. Smoking Status: Never smoker Past Alcohol Use History: None Reported Past Drug Use History: Marijuana Additional Drug Use History / Comment(s): Pt smokes two joints a day. - Past Family History Mother Family Medical History: CVA/TIA, Diabetes Mellitus, Hyperlipidemia, Hypertension Additional Family Medical History / Comment(s): TIA Father Family Medical History: CVA/TIA Additional Family Medical History / Comment(s): TIA Medications and Allergies Home Medications Medication Instructions Recorded Confirmed Type Cefuroxime Axetil [Ceftin] 500 mg PO BID #20 tab 09/15/20 11/19/20 Rx metroNIDAZOLE [Flagyl] 500 mg PO TID #30 tab 09/15/20 11/19/20 Rx Allergies Allergy/AdvReac Type Severity Reaction Status Date / Time adhesive Allergy Rash/Hives Verified 11/19/20 15:19 amoxicillin Allergy Rash/Hives. Verified 11/19/20 15:19 SWELLING. Penicillins Allergy Rash/Hives Verified 11/19/20 15:19 Sulfa (Sulfonamide Allergy Rash/Hives Verified 11/19/20 15:19 Antibiotics) Physical Exam Vitals: Vital Signs Temp Pulse Pulse Resp BP BP Pulse Ox 11/20/20 02:16 98.8 F 105 H 18 136/75 97 11/20/20 01:56 98.9 F 86 146/76 11/20/20 01:46 98.9 F 86 18 146/76 97 11/20/20 01:36 99.3 F 88 18 151/73 97 11/20/20 00:20 99.2 F 84 16 143/73 97 11/19/20 21:55 131 H 11/19/20 20:09 99.6 F 96 17 158/81 98 11/19/20 18:12 100.3 F H 101 H 17 145/76 98 11/19/20 15:21 99.8 F H 90 18 146/86 98 11/19/20 12:27 100.3 F H 105 H 16 159/87 99 Intake and Output 11/19/20 11/20/20 11/20/20 22:59 06:59 14:59 Intake Total 1420 0 Balance 1420 0 Intake: Oral 1420 Blood Product 0 Rc Irr As1 Unit 0 [id number] Other: Voiding Method Toilet # Voids 1 Weight 102.058 kg Patient is alert and oriented 3. He was not fully examined as this was a tele- visit. Results CBC & Chem 7: 11/19/20 19:34 11/19/20 12:59 Labs: Abnormal Lab Results - Last 24 Hours (Table) 11/19/20 11/19/20 11/19/20 Range/Units 12:59 12:59 12:59 RBC 1.87 L (4.30-5.90) m/uL Hgb 7.0 L D (13.0-17.5) gm/dL Hct 19.7 L* (39.0-53.0) % MCV 105.2 H (80.0-100.0) fL MCH 37.5 H (25.0-35.0) pg RDW 16.0 H (11.5-15.5) % Plt Count 49 L D (150-450) k/uL Blast Cells % 49 H* % Neutrophils # (Manual) 0.40 L* (1.3-7.7) k/uL Lymphocytes # (Manual) 4.92 H (1.0-4.8) k/uL Blast Cells # (Man) 5.24 H (0) k/uL Nucleated RBCs (0-0) /100 WBC Pathologist Review See comment A Macrocytosis APTT 20.6 L (22.0-30.0) sec D-Dimer 8.06 H (<0.60) mg/L FEU Chloride 108 H (98-107) mmol/L Glucose 104 H (74-99) mg/dL TIBC (228-460) ug/dL % Saturation (15.00-50.00) Ferritin (22.0-322.0) ng/mL AST 65 H (17-59) U/L Lactate Dehydrogenase (313-618) U/L Total Protein 6.0 L (6.3-8.2) g/dL Crossmatch 11/19/20 11/19/20 11/19/20 Range/Units 13:42 13:42 19:34 RBC 1.84 L 1.69 L (4.30-5.90) m/uL Hgb 6.9 L* 6.6 L* (13.0-17.5) gm/dL Hct 19.5 L* 18.1 L* (39.0-53.0) % MCV 105.9 H 107.0 H (80.0-100.0) fL MCH 37.4 H 38.9 H (25.0-35.0) pg RDW 15.8 H 16.8 H (11.5-15.5) % Plt Count 51 L 50 L (150-450) k/uL Blast Cells % 37 H* % Neutrophils # (Manual) 0.11 L* (1.3-7.7) k/uL Lymphocytes # (Manual) 6.63 H (1.0-4.8) k/uL Blast Cells # (Man) 3.96 H (0) k/uL Nucleated RBCs 1 H (0-0) /100 WBC Pathologist Review Macrocytosis Marked A APTT (22.0-30.0) sec D-Dimer (<0.60) mg/L FEU Chloride (98-107) mmol/L Glucose (74-99) mg/dL TIBC (228-460) ug/dL % Saturation (15.00-50.00) Ferritin (22.0-322.0) ng/mL AST (17-59) U/L Lactate Dehydrogenase (313-618) U/L Total Protein (6.3-8.2) g/dL Crossmatch See Detail 11/19/20 11/19/20 Range/Units 19:34 19:43 RBC (4.30-5.90) m/uL Hgb (13.0-17.5) gm/dL Hct (39.0-53.0) % MCV (80.0-100.0) fL MCH (25.0-35.0) pg RDW (11.5-15.5) % Plt Count (150-450) k/uL Blast Cells % % Neutrophils # (Manual) (1.3-7.7) k/uL Lymphocytes # (Manual) (1.0-4.8) k/uL Blast Cells # (Man) (0) k/uL Nucleated RBCs (0-0) /100 WBC Pathologist Review Macrocytosis APTT (22.0-30.0) sec D-Dimer (<0.60) mg/L FEU Chloride (98-107) mmol/L Glucose (74-99) mg/dL TIBC 206 L (228-460) ug/dL % Saturation 76.21 H (15.00-50.00) Ferritin 1164.5 H (22.0-322.0) ng/mL AST 74 H (17-59) U/L Lactate Dehydrogenase 4233 H (313-618) U/L Total Protein (6.3-8.2) g/dL Crossmatch CT scan - abdomen: report reviewed CT scan - chest: report reviewed CT scan - pelvis: report reviewed Assessment and Plan Assessment: 1. Anemia 2. Thrombocytopenia 3. Blasts on smear 4. Rectal abscess 5. Chest discomfort 6. Fevers Plan: Mr. Laboy is a very pleasant 20-year-old gentleman with a history of rectal abscesses since at least August 2020, following with GI and on antibiotics, who is here for chest discomfort and fevers. Workup with CBC revealed severe anemia, hemoglobin of 67 thrombocytopenia, platelets 50, and 50% blasts on his peripheral smear. CT of the chest abdomen and pelvis revealed diffuse lymphadenopathy. I discussed his case with the patient as well as his nurse in detail. 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 He would be better served in a tertiary center such as [facility]. I did discuss this case with an accepting physician at [facility] as well as the transfer center and plan is to transfer him there for further workup and treatment. Initial workup ordered here including B12, folate, latex, LDH, haptoglobin, CMP, flow cytometry, iron panel. Patient is agreeable to the plan. All of his questions were answered. >100 min was spent on pt and coordination of care
[2020-11-20 18:37] LABS: EBV-EA (IgG) <0.2 AI; EBV-EBNA(IgG) >8.0 AI; EBV-VCA (IgG) >8.0 AI; EBV-VCA (IgM) 0.2 AI
[2020-11-20 18:38] LABS: HIV 2 AB Non-Reactive (Non-Reactive); HIV AB P24 Non-Reactive (Non-Reactive); HIV P24 AG Non-Reactive (Non-Reactive)
[2020-11-20 20:01] LABS: Hepatitis A Antibody IgM Non-Reactive (Non-Reactive); Hepatitis B Core IgM Non-Reactive (Non-Reactive); Hepatitis B Surface Antigen Non-Reactive (Non-Reactive); Hepatitis C IgG Antibody Non-Reactive (Non-Reactive)
== END 2020-11-20 02:50 | disposition short-term general hospital (02) | DRG 809 ==
LOC: EC 12:23 → 5NMEDONC 14:30
PROVIDERS: ADMIT Internal Medicine; ATTEND Internal Medicine
PROC: 30233N1 Transfusion of Nonautologous Red Blood Cells into Peripheral Vein, Percutaneous Approach (ICD-10-PCS; principal; 2020-11-20)
DX: D70.9 Neutropenia, unspecified (principal); K61.1 Rectal abscess; D69.6 Thrombocytopenia, unspecified; R16.0 Hepatomegaly, not elsewhere classified; Z20.822 Contact with and (suspected) exposure to COVID-19; R50.81 Fever presenting with conditions classified elsewhere; D64.9 Anemia, unspecified; K62.89 Other specified diseases of anus and rectum; K21.9 Gastro-esophageal reflux disease without esophagitis; J45.909 Unspecified asthma, uncomplicated; Z79.2 Long term (current) use of antibiotics; Z90.49 Acquired absence of other specified parts of digestive tract; Z87.19 Personal history of other diseases of the digestive system; Z98.818 Other dental procedure status; Z98.890 Other specified postprocedural states; Z88.0 Allergy status to penicillin; Z88.2 Allergy status to sulfonamides; Z91.048 Other nonmedicinal substance allergy status; Z83.3 Family history of diabetes mellitus; Z82.49 Family history of ischemic heart disease and other diseases of the circulatory system; Z83.49 Family history of other endocrine, nutritional and metabolic diseases; Z82.3 Family history of stroke
CPT/HCPCS: 36415; 71046; 71275; 74177; 80053; 80074; 81003; 82247; 82607; 82728; 82746; 82977; 83010; 83540; 83550; 83605; 83615; 83690; 83735; 83921; 84075; 84450; 84460; 84484; 84550; 85025; 85045; 85379; 85610; 85730; 86644; 86645; 86663; 86664; 86665; 86850; 86900; 86901; 86920; 87040; 87390; 87635; 93005; 93306; 96365; 96375; 99285

== ENCOUNTER → 2021-02-22 | Outpatient (CLI) | payer OTHER ==
[~2021-02-22] MED LIST changes: -LACTATED RINGERS 1,000 ML IV SCH; -LIDOCAINE 1% 20 ML VIAL (10MG/ML) FOR IV START INTRADERMA PRN; -LIDOCAINE 1% INJ 10MG/ML (20 ML MDV) ONE; -PROPOFOL 10 MG/ML 20 ML VIAL IV ONE; +SODIUM CHLORIDE 0.9% 500 ML 500 ML in EMPTY BAG 1 BAG IV PRN
[2021-02-22 12:43] VITALS: RESP 16
[2021-02-22 13:38] VITALS: BP 127/70; PULSE 67; TEMP 98.2
== END ==
LOC: PROCWHC3 11:37
PROVIDERS: ATTEND Internal Medicine Hematology & Oncology
DX: C91.00 Acute lymphoblastic leukemia not having achieved remission (principal); Z88.2 Allergy status to sulfonamides; F17.200 Nicotine dependence, unspecified, uncomplicated
CPT/HCPCS: 86900; 86901; 86850; 86920; 36430; P9016

== ENCOUNTER 2021-07-22 20:24 | Inpatient (IN) | payer OTHER ==
[2021-07-22] MEDS ORDERED: ACETAMINOPHEN TAB 325 MG TAB PO STA (21:23)
[2021-07-22] MEDS ORDERED: CEFEPIME 2 GM in SODIUM CHLORIDE 0.9% 100 ML IVPB STA (21:24)
--- NOTE | 2021-07-22 21:53 | ED ---
Fever HPI - General Chief Complaint: Fever Stated Complaint: Fever,Sent in by his Oncologist Time Seen by Provider: 07/22/21 21:22 Source: patient Mode of arrival: ambulatory - History of Present Illness Initial Comments: This patient is 21-year-old man with history of T-cell a LL, receiving chemotherapy. About 6 PM tonight he noticed he was having fever and chills. They phoned the oncologist covering for his oncologist at the [facility] and was told to go to the emergency department workup. The patient is not able to identify a definite source of fever. He does note that he had seen his physician Dr. Smith earlier today and was started on clindamycin, he has taken one dose of this, for an ulceration of the buccal mucosa of the left cheek. Patient also notes that he has had intermittent problems with perianal abscess. Finally he notes that he does have a PICC line in the right arm. MD Complaint: fever Onset/Timin -: hour(s) Temperature Source: oral Context: on chemotherapy Associated Symptoms: chills, other Treatments Prior to Arrival: Acetaminophen - Related Data Home Medications Medication Instructions Recorded Confirmed Acyclovir (Unknown Dose) 1 tab PO DIRECTED 07/22/21 07/22/21 Amlodipine (Unknown Dose) 1 tab PO DIRECTED 07/22/21 07/22/21 Compazine (Unknown Dose) 1 tab PO DIRECTED 07/22/21 07/22/21 Dapsone (Unknown Dose) 1 tab PO DIRECTED 07/22/21 07/22/21 Furosemide (Unknown Dose) 1 tab PO DIRECTED 07/22/21 07/22/21 LORazepam [Ativan] 1 mg PO BID PRN 07/22/21 07/22/21 Losartan (Unknown Dose) 1 tab PO DIRECTED 07/22/21 07/22/21 Omeprazole (Unknown Dose) 1 cap PO DIRECTED 07/22/21 07/22/21 Zofran (Unknown Dose) 1 tab PO DIRECTED 07/22/21 07/22/21 Zoloft (Unknown Dose) 1 tab PO DIRECTED 07/22/21 07/22/21 Zyprexa (Unknown Dose) 1 tab PO HS 07/22/21 07/22/21 clindamycin HCL [Cleocin] 300 mg PO Q8H 07/22/21 07/22/21 Allergies Allergy/AdvReac Type Severity Reaction Status Date / Time Sulfa (Sulfonamide Allergy Rash/Hives Verified 07/22/21 22:25 Antibiotics) Review of Systems ROS Statement: Those systems with pertinent positive or pertinent negative responses have been documented in the HPI. ROS Other: All systems not noted in ROS Statement are negative. Constitutional: Reports: fever, chills. Denies: weakness ENT: Reports: as per HPI, other Respiratory: Denies: cough, dyspnea Cardiovascular: Denies: chest pain, palpitations, edema, syncope Gastrointestinal: Denies: abdominal pain, nausea, vomiting, diarrhea Genitourinary: Denies: dysuria, frequency, hematuria, testicular pain Musculoskeletal: Denies: back pain Skin: Denies: rash Neurological: Denies: headache, weakness, numbness Past Medical History Past Medical History: Asthma, Cancer, GERD/Reflux Additional Past Medical History / Comment(s): Bronchitis, perirectal abscess for 3 months and still current. ALL. History of Any Multi-Drug Resistant Organisms: None Reported Past Surgical History: Appendectomy Additional Past Surgical History / Comment(s): Dental procedures, EGD, Past Anesthesia/Blood Transfusion Reactions: No Reported Reaction, Family History of Problems w/ Anesthesia Additional Past Anesthesia/Blood Transfusion Reaction / Comment(s): Mother has PONV Past Psychological History: No Psychological Hx Reported Smoking Status: Never smoker Past Alcohol Use History: None Reported Past Drug Use History: None Reported - Past Family History Mother Family Medical History: CVA/TIA, Diabetes Mellitus, Hyperlipidemia, Hypertension Additional Family Medical History / Comment(s): TIA Father Family Medical History: CVA/TIA Additional Family Medical History / Comment(s): TIA General Exam General appearance: alert, in no apparent distress Head exam: Present: atraumatic, normocephalic Eye exam: Present: normal appearance. Absent: scleral icterus, conjunctival injection ENT exam: Present: normal oropharynx, other (There is a small ulceration of the buccal mucosa to the left cheek. There is no tenderness. There is no edema. There is minimal erythema) Neck exam: Present: normal inspection, full ROM Respiratory exam: Present: normal lung sounds bilaterally. Absent: respiratory distress, wheezes, rales, rhonchi, stridor Cardiovascular Exam: Present: normal rhythm, tachycardia, systolic murmur (Grade 1/6 systolic ejection murmur). Absent: diastolic murmur, rubs, gallop GI/Abdominal exam: Present: soft. Absent: distended, tenderness, guarding, rebound, rigid, mass Extremities exam: Present: normal inspection, normal capillary refill. Absent: pedal edema, calf tenderness Back exam: Present: normal inspection. Absent: CVA tenderness (R), CVA t enderness (L) Neurological exam: Present: alert Skin exam: Present: warm, dry, intact, normal color, other (The PICC line insertion site on the right arm is nontender. The insertion site is covered but there is no warmth. No visible erythema.). Absent: rash Course Vital Signs 07/22/21 07/22/21 07/22/21 21:13 21:23 23:25 Temperature 103.8 F H 99.8 F H Pulse Rate 132 H 110 H Pulse Rate [ 132 H [employer] ] Respiratory 18 18 Rate Blood Pressure 148/88 139/68 Blood Pressure [Left Arm] O2 Sat by Pulse 99 98 Oximetry 07/23/21 07/23/21 07/23/21 01:25 04:05 08:43 Temperature 100.8 F H 99.9 F H 100.1 F H Pulse Rate 105 H 126 H Pulse Rate [ 116 H [employer] ] Respiratory 18 16 18 Rate Blood Pressure 135/60 148/99 Blood Pressure 125/72 [Left Arm] O2 Sat by Pulse 98 97 97 Oximetry Medical Decision Making - Medical Decision Making This patient is 21-year-old man history of ALL, presenting with febrile neutropenia. The patient did receive cefepime here after having an cultures. Case is discussed with his oncologist, Dr. Barker, at the [facility] and he is okay with going along with the patient's request to be admitted here. He requests continue cefepime, transfuse 5 pack irradiated platelets. Case is discussed with admitting hospitalist group. - Lab Data Result diagrams: 07/22/21 22:09 07/22/21 22:09 Lab Results 07/22/21 07/22/21 07/22/21 Range/Units 22:09 22:09 22:09 WBC 0.4 L* (3.8-10.6) k/uL RBC 2.74 L (4.30-5.90) m/uL Hgb 8.6 L (13.0-17.5) gm/dL Hct 25.5 L (39.0-53.0) % MCV 93.2 (80.0-100.0) fL MCH 31.2 (25.0-35.0) pg MCHC 33.5 (31.0-37.0) g/dL RDW 16.5 H (11.5-15.5) % Plt Count 2 L* (150-450) k/uL MPV 7.3 Neutrophils % Not Reportable Lymphocytes % Not Reportable Monocytes % Not Reportable Eosinophils % Not Reportable Basophils % Not Reportable Neutrophils # Not Reportable Lymphocytes # Not Reportable Monocytes # Not Reportable Eosinophils # Not Reportable Basophils # Not Reportable Differential Comment Manual Slide Review Performed Poikilocytosis Slight Anisocytosis Slight PT 11.8 (9.0-12.0) sec INR 1.1 (<1.2) APTT 31.8 H (22.0-30.0) sec Sodium 139 (137-145) mmol/L Potassium 2.9 L (3.5-5.1) mmol/L Chloride 100 (98-107) mmol/L Carbon Dioxide 26 (22-30) mmol/L Anion Gap 13 mmol/L BUN 11 (9-20) mg/dL Creatinine 0.76 (0.66-1.25) mg/dL Est GFR (CKD-EPI)AfAm >90 (>60 ml/min/1.73 sqM) Est GFR (CKD-EPI)NonAf >90 (>60 ml/min/1.73 sqM) Glucose 99 (74-99) mg/dL Plasma Lactic Acid Milind (0.7-2.0) mmol/L Calcium 8.4 (8.4-10.2) mg/dL Total Bilirubin 1.4 H (0.2-1.3) mg/dL AST 15 L (17-59) U/L ALT 18 (4-49) U/L Alkaline Phosphatase 55 (38-126) U/L Troponin I (0.000-0.034) ng/mL Total Protein 6.1 L (6.3-8.2) g/dL Albumin 3.7 (3.5-5.0) g/dL 07/22/21 07/22/21 Range/Units 22:09 22:09 WBC (3.8-10.6) k/uL RBC (4.30-5.90) m/uL Hgb (13.0-17.5) gm/dL Hct (39.0-53.0) % MCV (80.0-100.0) fL MCH (25.0-35.0) pg MCHC (31.0-37.0) g/dL RDW (11.5-15.5) % Plt Count (150-450) k/uL MPV Neutrophils % Lymphocytes % Monocytes % Eosinophils % Basophils % Neutrophils # Lymphocytes # Monocytes # Eosinophils # Basophils # Differential Comment Manual Slide Review Poikilocytosis Anisocytosis PT (9.0-12.0) sec INR (<1.2) APTT (22.0-30.0) sec Sodium (137-145) mmol/L Potassium (3.5-5.1) mmol/L Chloride (98-107) mmol/L Carbon Dioxide (22-30) mmol/L Anion Gap mmol/L BUN (9-20) mg/dL Creatinine (0.66-1.25) mg/dL Est GFR (CKD-EPI)AfAm (>60 ml/min/1.73 sqM) Est GFR (CKD-EPI)NonAf (>60 ml/min/1.73 sqM) Glucose (74-99) mg/dL Plasma Lactic Acid Milind 0.7 (0.7-2.0) mmol/L Calcium (8.4-10.2) mg/dL Total Bilirubin (0.2-1.3) mg/dL AST (17-59) U/L ALT (4-49) U/L Alkaline Phosphatase (38-126) U/L Troponin I 0.029 (0.000-0.034) ng/mL Total Protein (6.3-8.2) g/dL Albumin (3.5-5.0) g/dL - EKG Data -: EKG Interpreted by Me EKG shows normal: sinus rhythm, axis (Normal), intervals (Normal), QRS complexes (Normal) Rate: tachycardia (Rate 120 bpm) Interpretation: nonspecific ST-T wave changes Critical Care Time Critical Care Time: Yes (35 minutes) Disposition Clinical Impression: Neutropenic fever, Thrombocytopenia, Hypokalemia Disposition: ADMITTED IP TO THIS [facility] Condition: Serious Is patient prescribed a controlled substance at d/c from ED?: No Time of Disposition: 23:08
[2021-07-22] MEDS: SODIUM CHLORIDE 0.9% 500 ML 500 ML IV SCH ×2 (22:00→22:58)
[2021-07-22] MEDS: SODIUM CHLORIDE 0.9% 1,000 ML IV SCH (22:00)
[2021-07-22 22:22] LABS: Anisocytosis Slight; HCT 25.5 % (39.0-53.0); HGB 8.6 gm/dL (13.0-17.5); MCH 31.2 pg (25.0-35.0); MCHC 33.5 g/dL (31.0-37.0); MCV 93.2 fL (80.0-100.0); Mean Platelet Volume 7.3; Poikilocytosis Slight; RBC 2.74 m/uL (4.30-5.90); RDW 16.5 % (11.5-15.5)
[2021-07-22 22:28] LABS: INR 1.1 (<1.2)
[2021-07-22 22:29] LABS: Partial Thromboplastin Time 31.8 sec (22.0-30.0); Prothrombin Time 11.8 sec (9.0-12.0); WBC 0.4 k/uL (3.8-10.6)
[2021-07-22 22:40] LABS: ALT 18 U/L (4-49); AST 15 U/L (17-59); African American GFR (CKD) >90 (>60 ml/min/1.73 sqM); Albumin 3.7 g/dL (3.5-5.0); Alkaline Phosphatase 55 U/L (38-126); Anion Gap 13 mmol/L; Blood Urea Nitrogen 11 mg/dL (9-20); Calcium 8.4 mg/dL (8.4-10.2); Carbon Dioxide 26 mmol/L (22-30); Chloride 100 mmol/L (98-107); Glucose 99 mg/dL (74-99); Non-African American GFR(CKD) >90 (>60 ml/min/1.73 sqM); Potassium 2.9 mmol/L (3.5-5.1); Sodium 139 mmol/L (137-145); Total Bilirubin 1.4 mg/dL (0.2-1.3); Total Protein 6.1 g/dL (6.3-8.2)
[2021-07-22 22:48] LABS: Platelet Count 2 k/uL (150-450)
[2021-07-22] MEDS ORDERED: POTASSIUM CHLORIDE ER 20 MEQ TAB.ER PO STA (22:53)
--- NOTE | 2021-07-22 23:10 | XR ---
EXAMINATION TYPE: XR chest 2V DATE OF EXAM: 07/22/2021 COMPARISON: 11/19/2020 HISTORY: Fever TECHNIQUE: FINDINGS: Heart and mediastinum are normal. Lungs are clear. Diaphragm is normal. Bony thorax appears normal. IMPRESSION: Normal chest. No change.
[2021-07-22] MEDS ORDERED: NALOXONE 0.4 MG/ML 1 ML VIAL IV PRN (23:39)
[2021-07-23] MEDS: SODIUM CHLORIDE 0.9% 500 ML 500 ML IV SCH
[2021-07-23 00:26] LABS: Appearance,Urine Clear (Clear); Bilirubin,Urine Negative (Negative); Blood,Urine Negative (Negative); Color,Urine Yellow; Glucose,Urine (UA) Negative (Negative); Ketones,Urine Negative (Negative); Leukocyte Esterase,Urine Negative (Negative); Mucus,Urine Many /hpf; Nitrite,Urine Negative (Negative); Protein,Urine 1+ (Negative); RBC,Urine 1 /hpf (0-5); Specific Gravity,Urine 1.018 (1.001-1.035); Squamous Epithelial Cell,Urine <1 /hpf (0-4); Urobilinogen,Urine <2.0 mg/dL (<2.0); WBC,Urine 14 /hpf (0-5)
[2021-07-23] MEDS: ACETAMINOPHEN TAB 325 MG TAB PO PRN ×3 (05:26→20:32)
[2021-07-23] MEDS: SODIUM CHLORIDE 0.9% 1,000 ML IV SCH ×2 (08:00→12:53)
[2021-07-23] MEDS ORDERED: POTASSIUM CHLORIDE ER 20 MEQ TAB.ER PO STA (11:18)
[2021-07-23] MEDS ORDERED: LORazepam 1 MG TAB PO PRN (11:19)
--- NOTE | 2021-07-23 11:26 | P.HPIM ---
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 Patient appears to have dental infection involving both the lower molars. Patient was given kanamycin by PCP. Patient is presently actively receiving chemotherapy. Patient denied any cough chest x-ray did not show any pneumonia or any dysuria or increased urinary frequency urinalysis is not significant. Patient was started on cefepime was subsequently admitted. Patient is severely pancytopenic with a platelet count of around 2000 and severely anemic secondary to chemotherapy. REVIEW OF SYSTEMS: CONSTITUTIONAL: As mentioned in the interval history HEENT: No recent visual problems or hearing problems. Denied any sore throat. CARDIOVASCULAR: No chest pain, orthopnea, PND, no palpitations, no syncope. PULMONARY: No shortness of breath, no cough, no hemoptysis. GASTROINTESTINAL: No diarrhea, no nausea, no vomiting, no abdominal pain. NEUROLOGICAL: No headaches, no weakness, no numbness. HEMATOLOGICAL: Denies any bleeding or petechiae. GENITOURINARY: Denies any burning micturition, frequency, or urgency. MUSCULOSKELETAL/RHEUMATOLOGICAL: Denies any joint pain, swelling, or any muscle pain. ENDOCRINE: Denies any polyuria or polydipsia. The rest of the 14-point review of systems is negative. PHYSICAL EXAMINATION: GENERAL: The patient is alert and oriented x3, not in any acute distress. Well developed, well nourished. HEENT: Pupils are round and equally reacting to light. EOMI. No scleral icterus. No conjunctival pallor. Normocephalic, atraumatic. No pharyngeal erythema. No thyromegaly. Face is significantly swollen patient does have a swelling in the jaw with some come swelling near the first and second lower molar area bilaterally CARDIOVASCULAR: S1 and S2 present. No murmurs, rubs, or gallops. PULMONARY: Chest is clear to auscultation, no wheezing or crackles. ABDOMEN: Soft, nontender, nondistended, normoactive bowel sounds. No palpable organomegaly. MUSCULOSKELETAL: No joint swelling or deformity. EXTREMITIES: No cyanosis, clubbing, or pedal edema. NEUROLOGICAL: Gross neurological examination did not reveal any focal deficits. SKIN: No rashes. Assessment and plan 1 febrile neutropenia, possible sepsis: Secondary to dental infection patient will be continued on cefepime infectious disease will be consulted. 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 -Pretension -Gastroesophageal reflux disease -Depression DVT prophylaxis: No Neurological DVT prophylaxis because of severe thrombocytopenia Past Medical History Past Medical History: Asthma, Cancer, GERD/Reflux Additional Past Medical History / Comment(s): Bronchitis, perirectal abscess for 3 months and still current. ALL. History of Any Multi-Drug Resistant Organisms: None Reported Past Surgical History: Appendectomy Additional Past Surgical History / Comment(s): Dental procedures, EGD, Past Anesthesia/Blood Transfusion Reactions: No Reported Reaction, Family History of Problems w/ Anesthesia Additional Past Anesthesia/Blood Transfusion Reaction / Comment(s): Mother has PONV Past Psychological History: No Psychological Hx Reported Smoking Status: Never smoker Past Alcohol Use History: None Reported Past Drug Use History: None Reported - Past Family History Mother Family Medical History: CVA/TIA, Diabetes Mellitus, Hyperlipidemia, Hypertension Additional Family Medical History / Comment(s): TIA Father Family Medical History: CVA/TIA Additional Family Medical History / Comment(s): TIA Medications and Allergies Home Medications Medication Instructions Recorded Confirmed Type Acyclovir (Unknown Dose) 1 tab PO DIRECTED 07/22/21 07/22/21 History Amlodipine (Unknown Dose) 1 tab PO DIRECTED 07/22/21 07/22/21 History Compazine (Unknown Dose) 1 tab PO DIRECTED 07/22/21 07/22/21 History Dapsone (Unknown Dose) 1 tab PO DIRECTED 07/22/21 07/22/21 History Furosemide (Unknown Dose) 1 tab PO DIRECTED 07/22/21 07/22/21 History LORazepam [Ativan] 1 mg PO BID PRN 07/22/21 07/22/21 History Losartan (Unknown Dose) 1 tab PO DIRECTED 07/22/21 07/22/21 History Omeprazole (Unknown Dose) 1 cap PO DIRECTED 07/22/21 07/22/21 History Zofran (Unknown Dose) 1 tab PO DIRECTED 07/22/21 07/22/21 History Zoloft (Unknown Dose) 1 tab PO DIRECTED 07/22/21 07/22/21 History Zyprexa (Unknown Dose) 1 tab PO HS 07/22/21 07/22/21 History clindamycin HCL [Cleocin] 300 mg PO Q8H 07/22/21 07/22/21 History Allergies Allergy/AdvReac Type Severity Reaction Status Date / Time Sulfa (Sulfonamide Allergy Rash/Hives Verified 07/22/21 22:25 Antibiotics) Physical Exam Vitals: Vital Signs Temp Pulse Pulse Resp BP BP Pulse Ox 07/23/21 11:00 99.6 F 106 H 18 149/98 99 07/23/21 09:23 99.2 F 117 H 18 145/88 97 07/23/21 08:53 99.3 F 123 H 16 154/96 98 07/23/21 08:43 100.1 F H 126 H 18 148/99 97 07/23/21 04:05 99.9 F H 116 H 16 125/72 97 07/23/21 01:25 100.8 F H 105 H 18 135/60 98 07/22/21 23:25 99.8 F H 110 H 18 139/68 98 07/22/21 21:23 132 H 07/22/21 21:13 103.8 F H 132 H 18 148/88 99 Intake and Output 07/22/21 07/23/21 07/23/21 22:59 06:59 14:59 Intake Total 390 323 Balance 390 323 Intake: IV 390 Sodium Chloride 0.9% 1, 390 000 ml @ 130 mls/hr IV . Q7H42M [facility] Rx#:[id number] Blood Product 323 Platelet Pheresis Pas 323 Psoralen Unit [id number] Other: # Voids 1 Weight 99.79 kg Results CBC & Chem 7: 07/22/21 22:09 07/22/21 22:09 Labs: Abnormal Lab Results - Last 24 Hours (Table) 07/22/21 07/22/21 07/22/21 Range/Units 22:09 22:09 22:09 WBC 0.4 L* (3.8-10.6) k/uL RBC 2.74 L (4.30-5.90) m/uL Hgb 8.6 L (13.0-17.5) gm/dL Hct 25.5 L (39.0-53.0) % RDW 16.5 H (11.5-15.5) % Plt Count 2 L* (150-450) k/uL APTT 31.8 H (22.0-30.0) sec Potassium 2.9 L (3.5-5.1) mmol/L Total Bilirubin 1.4 H (0.2-1.3) mg/dL AST 15 L (17-59) U/L Troponin I (0.000-0.034) ng/mL Total Protein 6.1 L (6.3-8.2) g/dL Urine Protein (Negative) Urine WBC (0-5) /hpf Urine Mucus (None) /hpf 07/23/21 07/23/21 Range/Units 00:12 01:28 WBC (3.8-10.6) k/uL RBC (4.30-5.90) m/uL Hgb (13.0-17.5) gm/dL Hct (39.0-53.0) % RDW (11.5-15.5) % Plt Count (150-450) k/uL APTT (22.0-30.0) sec Potassium (3.5-5.1) mmol/L Total Bilirubin (0.2-1.3) mg/dL AST (17-59) U/L Troponin I 0.040 H* (0.000-0.034) ng/mL Total Protein (6.3-8.2) g/dL Urine Protein 1+ H (Negative) Urine WBC 14 H (0-5) /hpf Urine Mucus Many H (None) /hpf Microbiology - Last 24 Hours (Table) 07/23/21 00:12 Urine Culture - Preliminary Urine,Voided
[2021-07-23] MEDS ORDERED: ONDANSETRON ODT 8 MG TAB.RAPDIS PO PRN (11:30)
[2021-07-23] MEDS ORDERED: AMLODIPINE PO SCH (11:30)
[2021-07-23] MEDS ORDERED: VANCOMYCIN IV PER PHARMACY 1 EACH MISC MISCELLANE PRN (12:39)
[2021-07-23] MEDS ORDERED: VANCOMYCIN 1,500 MG in SODIUM CHLORIDE 0.9% 250 ML IVPB STA (13:12)
--- NOTE | 2021-07-23 14:29 | CONS ---
CONSULTATION DATE OF SERVICE: 07/23/2021 REASON FOR CONSULTATION: AML and neutropenic fever. CHIEF COMPLAINT: Fever and chills. Gonzalez is a very pleasant 21-year-old gentleman who has a diagnosis of T-cell acute lymphoblastic leukemia. He has been under the care of Dr. Barker at [facility] and also he has been coming to our office in [facility] to monitor his blood count and for supportive transfusion as needed. He recently received IV cytarabine and he is also on 6-mercaptopurine as well as part of his current systemic regimen. The patient recently developed what he felt could be an infected tooth. He went to his primary care physician and he was given clindamycin, but he started to develop fever and chills, and he came into the emergency department. He was neutropenic and he ended up being admitted to the hospital for further evaluation and recommendation. Blood culture was already obtained. His chest x-ray was negative. He has a sore throat and swelling in his gums. He denies any shortness of breath, cough, nausea or vomiting. His bowels are working fine. He does not have any urinary symptoms. He does have any melena, hematochezia, hematuria, hemoptysis or hematemesis. His appetite is fair and he does not have any dysphagia. He does not have any headaches or blurred vision. Overall he feels tired. PAST MEDICAL HISTORY: Other than what is stated above, he has a history of hypertension, but otherwise negative. SOCIAL HISTORY: No history of smoking or alcohol abuse. He uses marijuana off and on. He is single. FAMILY HISTORY: His mother has anemia. His maternal grandfather has skin cancer. Maternal grandmother has history of lymphoma. An aunt has breast cancer. REVIEW OF SYSTEMS: As stated above in the history of present illness. CURRENT MEDICATIONS: His home medications include Zyprexa, Compazine, Zoloft, omeprazole, dapsone, losartan, Lasix, amlodipine, acyclovir and Zofran as needed. REVIEW OF SYSTEMS: As stated above in the history of present illness; otherwise negative. PHYSICAL EXAMINATION: He is alert, oriented x3. He does not appear to be in distress. VITAL SIGNS: Temperature is now 99.7. His temperature when he came into the ER last night was 103.8. HEENT: Normocephalic, atraumatic. He has a blister on the inner right cheek and also a small sore on the left cheek. No obvious thrush. NECK: Supple. No jugular venous distention. CHEST: Equal expansion bilaterally. LUNGS: Clear to auscultation and percussion. HEART: Regular rate and rhythm. ABDOMEN: Soft. No tenderness or organomegaly. No masses. Bowel sounds present. EXTREMITIES: No significant edema. LYMPHATICS: No peripherally enlarged cervical or supraclavicular nodes. MUSCULOSKELETAL: Moving all extremities appropriately. No percussion tenderness detected over his spine or his sternum. LABORATORY DATA: WBC of 0.4, hemoglobin 8.6, hematocrit 25.5, platelets 2000. PT is 11.8 and PTT 31.8. Sodium 139, potassium 2.9, chloride is 100. BUN is 11, creatinine 0.7. Total bilirubin is 1.4. AST is 15, ALT is 18. His urinalysis showed WBC of 14 and 1+ protein. His chest x-ray was normal. IMPRESSION: 1. Neutropenic fever. The patient appears to be hemodynamically stable. 2. Pancytopenia secondary to recent chemotherapy with significant myelosuppression. 3. T-cell acute lymphoblastic leukemia, as stated above. RECOMMENDATION: 1. I agree with admitting the patient to the hospital. 2. Hager cultures already obtained. 3. Broad-spectrum antibiotics ordered. 4. Supportive transfusion will be provided. The above was discussed in detail with the patient and his mother at bedside, and I answered all of their questions. MMODL / IJN: [id number] /
[2021-07-23] MEDS: ACYCLOVIR 200 MG CAP PO SCH ×2 (14:38→20:43)
[2021-07-23] MEDS: PANTOPRAZOLE 40 MG TABLET PO SCH (14:38)
[2021-07-23] MEDS ORDERED: CEFEPIME 2 GM in SODIUM CHLORIDE 0.9% 100 ML IVPB SCH (16:00)
--- NOTE | 2021-07-23 16:14 | CT ---
EXAMINATION TYPE: CT tmj maxillofacial wo con DATE OF EXAM: 07/23/2021 COMPARISON: None. HISTORY: jaw swelling to both sides CT DLP: 489.9 mGycm Automated exposure control for dose reduction was used. FINDINGS: Mandible is intact. Temporomandibular joints are maintained bilaterally. Absent right second premolar tooth. Absent third molar teeth bilaterally. Streak artifact from cavitary fillings and crowns in th e bilateral teeth is present. Mild fat stranding and subcutaneous edema over the left greater than ri ght mandible. No well-formed fluid collection or abscess seen. Submandibular glands are symmetric and maintained. Prominent but subcentimeter adjacent lymph nodes a re present. Tiny mucous retention cyst or polyp in the inferior left maxillary sinus otherwise visual ized paranasal sinuses are clear. Globes are intact bilaterally. IMPRESSION: Mild soft tissue infection or cellulitis over bilateral aspects of the mandible.
[2021-07-23] MEDS: AMPICILLIN-SULBACTAM 3 GM in SODIUM CHLORIDE 0.9% 100 ML IVPB SCH (19:22)
[2021-07-23] MEDS: OLANZapine 5 MG TAB PO SCH (20:43)
--- NOTE | 2021-07-23 22:41 | P.CONS ---
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 last chemo has been about 2 weeks ago patient recently did have treatment for a infected tooth however the patient mention he did not took care of it and start using marijuana subsequently had noticing having a swelling to the left side of his face and the lower jaw patient has been treated in the outpatient setting with oral clindamycin however he started having a fever last night that brought the patient to the hospital patient denies having any headache or URI symptoms has been complaining of swelling and pain to the left side of the face denies any difficulty swallowing no chest pain shortness with no cough no nausea no vomiting no abdominal pain or any diarrhea patient did have a right arm PICC line that has been there for the last 4 to 5 months patient denies having any problem with the PICC line as the blood has been drying easily patient on presentation to the hospital was febrile with a temperature of 103 degree for right tachycardic but not hypoxic white count of 0.4 platelet count of 2 BUN/creatinine was normal bilirubin was mildly elevated urine was negative em PCR was negative patient did have a chest x-ray negative for acute infiltrate patient was started on cefepime and vancomycin admitted to the hospital infectious disease was consulted for further management of antibiotic therapy Review of Systems Positive point has been mentioned in the HPI rest of the systems are negative Past Medical History Past Medical History: Asthma, Cancer, GERD/Reflux Additional Past Medical History / Comment(s): Bronchitis, perirectal abscess for 3 months and still current. ALL. History of Any Multi-Drug Resistant Organisms: None Reported Past Surgical History: Appendectomy Additional Past Surgical History / Comment(s): Dental procedures, EGD, Past Anesthesia/Blood Transfusion Reactions: No Reported Reaction, Family History of Problems w/ Anesthesia Additional Past Anesthesia/Blood Transfusion Reaction / Comm: Mother has PONV Past Psychological History: No Psychological Hx Reported Smoking Status: Never smoker Past Alcohol Use History: None Reported Past Drug Use History: None Reported - Past Family History Mother Family Medical History: CVA/TIA, Diabetes Mellitus, Hyperlipidemia, Hypertension Additional Family Medical History / Comment(s): TIA Father Family Medical History: CVA/TIA Additional Family Medical History / Comment(s): TIA Medications and Allergies Home Medications Medication Instructions Recorded Confirmed Type LORazepam [Ativan] 1 mg PO BID PRN 07/22/21 07/22/21 History clindamycin HCL [Cleocin] 300 mg PO Q8H 07/22/21 07/22/21 History Acyclovir 400 mg PO BID 07/23/21 07/23/21 History Dapsone 100 mg PO DAILY 07/23/21 07/23/21 History Furosemide [Lasix] 20 mg PO DAILY 07/23/21 07/23/21 History Losartan Potassium 100 mg PO DAILY 07/23/21 07/23/21 History OLANZapine [ZyPREXA] 5 mg PO HS 07/23/21 07/23/21 History Omeprazole [PriLOSEC] 10 mg PO DAILY 07/23/21 07/23/21 History Ondansetron Odt [Zofran Odt] 8 mg PO Q8H PRN 07/23/21 07/23/21 History Prochlorperazine [Compazine] 10 mg PO Q6H PRN 07/23/21 07/23/21 History Sertraline [Zoloft] 100 mg PO DAILY 07/23/21 07/23/21 History amLODIPine [Norvasc] 10 mg PO HS 07/23/21 07/23/21 History Allergies Allergy/AdvReac Type Severity Reaction Status Date / Time Sulfa (Sulfonamide Allergy Rash/Hives Verified 07/22/21 22:25 Antibiotics) Physical Exam Vitals: Vital Signs Temp Pulse Pulse Resp BP BP Pulse Ox 07/23/21 12:00 99.7 F H 112 H 16 158/98 97 07/23/21 11:00 99.6 F 106 H 18 149/98 99 07/23/21 09:23 99.2 F 117 H 18 145/88 97 07/23/21 08:53 99.3 F 123 H 16 154/96 98 07/23/21 08:43 100.1 F H 126 H 18 148/99 97 07/23/21 04:05 99.9 F H 116 H 16 125/72 97 07/23/21 01:25 100.8 F H 105 H 18 135/60 98 07/22/21 23:25 99.8 F H 110 H 18 139/68 98 07/22/21 21:23 132 H 07/22/21 21:13 103.8 F H 132 H 18 148/88 99 Intake and Output 07/22/21 07/23/21 07/23/21 22:59 06:59 14:59 Intake Total 390 323 Balance 390 323 Intake: IV 390 Sodium Chloride 0.9% 1, 390 000 ml @ 130 mls/hr IV . Q7H42M [facility] Rx#:[id number] Blood Product 323 Platelet Pheresis Pas 323 Psoralen Unit [id number] Other: # Voids 1 Weight 99.79 kg GENERAL DESCRIPTION: Middle-aged, left-sided facial swelling male lying in bed, no distress. No tachypnea or accessory muscle of respiration use. HEENT: Shows Pallor , no scleral icterus. Oral mucous membrane is dry. No pharyngeal erythema or thrush, left sided facial swelling NECK: Trachea central, no thyromegaly. LUNGS: Unlabored breathing. Clear to auscultation anteriorly. No wheeze or crackle. HEART: S1, S2, regular rate and rhythm. No loud murmur ABDOMEN: Soft, no tenderness , guarding or rigidity, no organomegaly EXTREMITIES: No edema of feet. SKIN: No rash, no masses palpable. NEUROLOGICAL: The patient is awake, alert, oriented x3, mood and affect normal. Results CBC & Chem 7: 07/22/21 22:09 07/22/21 22:09 Labs: Abnormal Lab Results - Last 24 Hours (Table) 07/22/21 07/22/21 07/22/21 Range/Units 22:09 22:09 22:09 WBC 0.4 L* (3.8-10.6) k/uL RBC 2.74 L (4.30-5.90) m/uL Hgb 8.6 L (13.0-17.5) gm/dL Hct 25.5 L (39.0-53.0) % RDW 16.5 H (11.5-15.5) % Plt Count 2 L* (150-450) k/uL APTT 31.8 H (22.0-30.0) sec Potassium 2.9 L (3.5-5.1) mmol/L Total Bilirubin 1.4 H (0.2-1.3) mg/dL AST 15 L (17-59) U/L Troponin I (0.000-0.034) ng/mL Total Protein 6.1 L (6.3-8.2) g/dL Urine Protein (Negative) Urine WBC (0-5) /hpf Urine Mucus (None) /hpf 07/23/21 07/23/21 07/23/21 Range/Units 00:12 01:28 13:10 WBC (3.8-10.6) k/uL RBC (4.30-5.90) m/uL Hgb (13.0-17.5) gm/dL Hct (39.0-53.0) % RDW (11.5-15.5) % Plt Count (150-450) k/uL APTT (22.0-30.0) sec Potassium (3.5-5.1) mmol/L Total Bilirubin (0.2-1.3) mg/dL AST (17-59) U/L Troponin I 0.040 H* 0.038 H* (0.000-0.034) ng/mL Total Protein (6.3-8.2) g/dL Urine Protein 1+ H (Negative) Urine WBC 14 H (0-5) /hpf Urine Mucus Many H (None) /hpf Microbiology - Last 24 Hours (Table) 07/23/21 00:12 Urine Culture - Preliminary Urine,Voided Assessment and Plan (1) Neutropenic fever Current Visit: Yes Status: Acute Code(s): D70.9 - NEUTROPENIA, UNSPECIFIED; R50.81 - FEVER PRESENTING WITH CONDITIONS CLASSIFIED ELSEWHERE SNOMED Code(s): 266678172 Plan: 1patient presented to hospital with a fever and this patient recently having a problem with an infected tooth and did have a swelling of the left side of the jaw with concern for possible oral source for this fever versus a PICC line infection that has been there for couple of months now. 2penicillin allergy on her chart however patient mention he has been tested at [facility] and has been told not allergic to penicillin and has taken amoxicillin without any problem clinically doubt true penicillin allergy. 3we will obtain CT of the maxillofacial area to make sure evidence of any abscess to the left lower jaw. 4discontinue cefepime and start the patient on Unasyn 3 g every 6 hours continue with the vancomycin while waiting for the culture to finalize. We will follow on clinical condition and cultures to further adjust medication if needed Thank you for this consultation will follow this patient along with you Time with Patient: Greater than 30
[2021-07-23] MEDS: VANCOMYCIN 1,500 MG in SODIUM CHLORIDE 0.9% 250 ML IVPB SCH (23:32)
[2021-07-24] MEDS: AMPICILLIN-SULBACTAM 3 GM in SODIUM CHLORIDE 0.9% 100 ML IVPB SCH ×4 (01:37→20:34)
[2021-07-24] MEDS: ACETAMINOPHEN TAB 325 MG TAB PO PRN ×4 (02:38→22:50)
[2021-07-24] MEDS: SODIUM CHLORIDE 0.9% 1,000 ML IV SCH ×2 (02:39→17:12)
[2021-07-24 07:43] LABS: Mean Platelet Volume 10.3
[2021-07-24 07:50] LABS: Platelet Count 23 k/uL (150-450)
[2021-07-24 08:09] LABS: African American GFR (CKD) >90 (>60 ml/min/1.73 sqM); Anion Gap 5 mmol/L; Blood Urea Nitrogen 2 mg/dL (9-20); Calcium 7.5 mg/dL (8.4-10.2); Carbon Dioxide 27 mmol/L (22-30); Chloride 109 mmol/L (98-107); Glucose 96 mg/dL (74-99); Magnesium 1.2 mg/dL (1.6-2.3); Non-African American GFR(CKD) >90 (>60 ml/min/1.73 sqM); Potassium 3.2 mmol/L (3.5-5.1); Sodium 141 mmol/L (137-145)
[2021-07-24] MEDS ORDERED: Potassium Replacement Protocol 1 EACH MISC MISCELLANE PRN (09:51)
[2021-07-24] MEDS ORDERED: Magnesium Replacement Protocol 1 EACH MISC MISCELLANE PRN (09:52)
[2021-07-24] MEDS ORDERED: POTASSIUM CHLORIDE ER 20 MEQ TAB.ER PO STA (09:53)
[2021-07-24] MEDS: VANCOMYCIN 1,500 MG in SODIUM CHLORIDE 0.9% 250 ML IVPB SCH ×2 (10:05→18:20)
[2021-07-24] MEDS: MAGNESIUM SULFATE-D5W PMX 1 GM in DEXTROSE/WATER 1 100ML.BAG IVPB SCH ×4 (10:15→17:15)
[2021-07-24] MEDS: PANTOPRAZOLE 40 MG TABLET PO SCH (10:15)
--- NOTE | 2021-07-24 11:01 | P.PN ---
Subjective Patient is a pleasant 21-year-old male actively receiving chemotherapy for T- cell acute lymphocytic leukemia came in with compensative fever. Patient appears to have dental infection involving both the lower molars. Patient was given kanamycin by PCP. Patient is presently actively receiving chemotherapy. Patient denied any cough chest x-ray did not show any pneumonia or any dysuria or increased urinary frequency urinalysis is not significant. Patient was started on cefepime was subsequently admitted. Patient is severely pancytopenic with a platelet count of around 2000 and severely anemic secondary to chemotherapy. 07/24/2021 Patient is still having low-grade fevers fevers independent improved patient looks much better today they patient had a maxillofacial CT which showed a soft tissue infection or cellulitis in the bilateral aspects of the mandible area inside the mouth, maxillofacial surgery will be consulted. Although not examined by me personally I was notified by the nursing staff that the patient has an area in the area which is is draining serous fluid, cultures for that will be obtained and infectious disease is following the patient as well. That lesion on the buttock area is present for about a month. Constitutional: Denied any fatigue denied any fever. Cardio vascular: denied any chest pain, palpitations Gastrointestinal denied any nausea vomiting Pulmonary: Denied any shortness of breath cough Neurologic denied any new focal deficits All inpatient medications were reviewed and appropriate changes in these medications as dictated in the interval history and assessment and plan. PHYSICAL EXAMINATION: GENERAL: The patient is alert and oriented x3, not in any acute distress. Well developed, well nourished. HEENT: Pupils are round and equally reacting to light. EOMI. No scleral icterus. No conjunctival pallor. Normocephalic, atraumatic. No pharyngeal erythema. No thyromegaly. Face is significantly swollen patient does have a swelling in the jaw with some come swelling near the first and second lower molar area bilaterally CARDIOVASCULAR: S1 and S2 present. No murmurs, rubs, or gallops. PULMONARY: Chest is clear to auscultation, no wheezing or crackles. ABDOMEN: Soft, nontender, nondistended, normoactive bowel sounds. No palpable organomegaly. MUSCULOSKELETAL: No joint swelling or deformity. EXTREMITIES: No cyanosis, clubbing, or pedal edema. NEUROLOGICAL: Gross neurological examination did not reveal any focal deficits. SKIN: No rashes. Assessment and plan 1 febrile neutropenia, possible sepsis: Secondary to dental infection rash cellulitis in the maxillary area as mentioned above patient has a possible sinus cyst in the buttock area, cultures of which are being obtained patient is presently on Unasyn and vancomycin patient will be continued on cefepime infectious disease when the patient -Severe pancytopenia: Secondary to chemotherapy oncology the patient patient received blood transfusion patient platelet the went up patient also received platelet transfusion yesterday -T-cell acute lymphocytic leukemia and patient will be continued on acyclovir continue home mentioned antibiotics -Pretension -Gastroesophageal reflux disease -Depression DVT prophylaxis: No Neurological DVT prophylaxis because of severe thrombocytopenia Objective - Vital Signs Vital signs: Vital Signs Temp 99.8 F H 07/24/21 10:02 Pulse 109 H 07/24/21 10:02 Resp 18 07/24/21 10:02 BP 137/89 07/24/21 10:02 Pulse Ox 96 07/24/21 10:02 Intake & Output 07/23/21 07/24/21 07/24/21 18:59 06:59 18:59 Intake Total 652 118 Balance 652 118 Weight 99.79 kg Intake: Oral 118 Blood Product 652 Platelet Pheresis Pas 323 Psoralen Unit [id number] Platelet Pheresis Pas 329 Psoralen Unit [id number] Other: # Voids 3 - Labs CBC & Chem 7: 07/24/21 07:30 07/24/21 07:30 Labs: Abnormal Lab Results - Last 24 Hours (Table) 07/23/21 07/24/21 07/24/21 Range/Units 13:10 07:30 07:30 Plt Count 23 L D (150-450) k/uL Potassium 3.2 L (3.5-5.1) mmol/L Chloride 109 H (98-107) mmol/L BUN 2 L (9-20) mg/dL Creatinine 0.49 L (0.66-1.25) mg/dL Calcium 7.5 L (8.4-10.2) mg/dL Magnesium 1.2 L (1.6-2.3) mg/dL Troponin I 0.038 H* (0.000-0.034) ng/mL Microbiology - Last 24 Hours (Table) 07/23/21 00:12 Urine Culture - Final Urine,Voided 07/22/21 22:09 Blood Culture - Preliminary Blood No Growth after 24 hours 07/22/21 22:41 Blood Culture - Preliminary Blood No Growth after 24 hours
[2021-07-24] MEDS: ACYCLOVIR 200 MG CAP PO SCH ×2 (13:15→21:25)
--- NOTE | 2021-07-24 13:31 | P.GSCN ---
History of Present Illness Consult date: 07/24/21 Reason for Consult: Facial Cellulitis Requesting physician: Mojgan Anderson History of present illness: Pt noticed Swelling yesterday mostly of Left side of face. he reports having 4 teeth pulled 6 weeks ago at the [facility] oral surgery clinic. he reports the never felt great, Possiably due to smoking marijuana post op. he we started on IV unasyn and Vanco yesterday. Review of Systems mild facial pain. swelling bilateral jaws worse on left Past Medical History Past Medical History: Asthma, Cancer, GERD/Reflux Additional Past Medical History / Comment(s): Bronchitis, perirectal abscess for 3 months and still current. ALL. finished 5th round of chemo recently History of Any Multi-Drug Resistant Organisms: None Reported Past Surgical History: Appendectomy Additional Past Surgical History / Comment(s): Dental procedures, EGD, Past Anesthesia/Blood Transfusion Reactions: No Reported Reaction, Family History of Problems w/ Anesthesia Additional Past Anesthesia/Blood Transfusion Reaction / Comm: Mother has PONV Past Psychological History: No Psychological Hx Reported Smoking Status: Never smoker Past Alcohol Use History: None Reported Past Drug Use History: None Reported - Past Family History Mother Family Medical History: CVA/TIA, Diabetes Mellitus, Hyperlipidemia, Hypertension Additional Family Medical History / Comment(s): TIA Father Family Medical History: CVA/TIA Additional Family Medical History / Comment(s): TIA Medications and Allergies Home Medications Medication Instructions Recorded Confirmed Type LORazepam [Ativan] 1 mg PO BID PRN 07/22/21 07/22/21 History clindamycin HCL [Cleocin] 300 mg PO Q8H 07/22/21 07/22/21 History Acyclovir 400 mg PO BID 07/23/21 07/23/21 History Dapsone 100 mg PO DAILY 07/23/21 07/23/21 History Furosemide [Lasix] 20 mg PO DAILY 07/23/21 07/23/21 History Losartan Potassium 100 mg PO DAILY 07/23/21 07/23/21 History OLANZapine [ZyPREXA] 5 mg PO HS 07/23/21 07/23/21 History Omeprazole [PriLOSEC] 10 mg PO DAILY 07/23/21 07/23/21 History Ondansetron Odt [Zofran Odt] 8 mg PO Q8H PRN 07/23/21 07/23/21 History Prochlorperazine [Compazine] 10 mg PO Q6H PRN 07/23/21 07/23/21 History Sertraline [Zoloft] 100 mg PO DAILY 07/23/21 07/23/21 History amLODIPine [Norvasc] 10 mg PO HS 07/23/21 07/23/21 History Allergies Allergy/AdvReac Type Severity Reaction Status Date / Time Sulfa (Sulfonamide Allergy Rash/Hives Verified 07/22/21 22:25 Antibiotics) Surgical - Exam Vital Signs Temp Pulse Resp BP Pulse Ox 103.8 F H 132 H 18 148/88 99 07/22/21 21:13 07/22/21 21:13 07/22/21 21:13 07/22/21 21:13 07/22/21 21:13 soft non fluctuant swelling of bilateral jaw. slightly more swollen on left aproxamnetly 2cm in volume. Able to open greater than 30mm no airway impingement Recent extraction sited of lower molars including two impacted wisdom teeth apear to be healing well. clots are present and no exposed bone. Results CT scan reviewed and no root tips remaning from extractions. normal post op bone morphology - Labs 07/24/21 07:30 07/24/21 07:30 Abnormal Lab Results - Last 24 Hours (Table) 07/23/21 07/24/21 07/24/21 Range/Units 13:10 07:30 07:30 Plt Count 23 L D (150-450) k/uL Potassium 3.2 L (3.5-5.1) mmol/L Chloride 109 H (98-107) mmol/L BUN 2 L (9-20) mg/dL Creatinine 0.49 L (0.66-1.25) mg/dL Calcium 7.5 L (8.4-10.2) mg/dL Magnesium 1.2 L (1.6-2.3) mg/dL Troponin I 0.038 H* (0.000-0.034) ng/mL Microbiology - Last 24 Hours (Table) 07/23/21 00:12 Urine Culture - Final Urine,Voided 07/22/21 22:09 Blood Culture - Preliminary Blood No Growth after 24 hours 07/22/21 22:41 Blood Culture - Preliminary Blood No Growth after 24 hours Diabetes panel 07/24/21 Range/Units 07:30 Sodium 141 (137-145) mmol/L Potassium 3.2 L (3.5-5.1) mmol/L Chloride 109 H (98-107) mmol/L Carbon Dioxide 27 (22-30) mmol/L BUN 2 L (9-20) mg/dL Creatinine 0.49 L (0.66-1.25) mg/dL Glucose 96 (74-99) mg/dL Calcium 7.5 L (8.4-10.2) mg/dL Calcium panel 07/24/21 Range/Units 07:30 Calcium 7.5 L (8.4-10.2) mg/dL Pituitary panel 07/24/21 Range/Units 07:30 Sodium 141 (137-145) mmol/L Potassium 3.2 L (3.5-5.1) mmol/L Chloride 109 H (98-107) mmol/L Carbon Dioxide 27 (22-30) mmol/L BUN 2 L (9-20) mg/dL Creatinine 0.49 L (0.66-1.25) mg/dL Glucose 96 (74-99) mg/dL Calcium 7.5 L (8.4-10.2) mg/dL Adrenal panel 07/24/21 Range/Units 07:30 Sodium 141 (137-145) mmol/L Potassium 3.2 L (3.5-5.1) mmol/L Chloride 109 H (98-107) mmol/L Carbon Dioxide 27 (22-30) mmol/L BUN 2 L (9-20) mg/dL Creatinine 0.49 L (0.66-1.25) mg/dL Glucose 96 (74-99) mg/dL Calcium 7.5 L (8.4-10.2) mg/dL Assessment and Plan Assessment: cellulitis could represent reaction to local irritation or post op infection Plan: educated pt and nurse how to improve oral hygiene due to recent treatment at [facility] most likely post op complication vers new problem. CHEMO and cancer could be causing delayed immune response which should run its course as WBCs improve. the Antibiotics are appropriate and no surgical intervention is indicated at this time please reconnect if condition does not improve Time with Patient: Greater than 30 (preformed irrigation at bed side)
[2021-07-24] MEDS ORDERED: VANCOMYCIN TROUGH DUE 1 EACH MISC MISCELLANE ONE (15:00)
--- NOTE | 2021-07-24 16:28 | P.PN ---
Subjective Progress Note Date: 07/24/21 Principal diagnosis: Febrile neutropenia and left lower joint infection Patient is a 21-year-old male with a past medical history significant for T-cell lymphoma for the patient is currently on chemotherapy last chemo was 2 weeks ago and also have extension of left lower jaw teeth presented to hospital with a fever and left lower jaw swelling, CT was negative for any abscess. On today's evaluation that is 07/24/2021, the patient overall fever pattern has improved and is afebrile this afternoon the patient is feeling better the left lower jaw swelling has improved denies any difficulty swallowing or chest pain shortness of breath or cough no abdominal pain or diarrhea Objective - Vital Signs Vital signs: Vital Signs Temp 98.7 F 07/24/21 13:14 Pulse 104 H 07/24/21 13:14 Resp 17 07/24/21 13:14 BP 174/89 07/24/21 13:14 Pulse Ox 97 07/24/21 13:14 Intake & Output 07/23/21 07/24/21 07/24/21 18:59 06:59 18:59 Intake Total 652 118 Balance 652 118 Weight 99.79 kg Intake: Oral 118 Blood Product 652 Platelet Pheresis Pas 323 Psoralen Unit [id number] Platelet Pheresis Pas 329 Psoralen Unit [id number] Other: # Voids 3 - Exam GENERAL DESCRIPTION: A middle-age male lying in bed in no distress HEENT: Left lower jaw swelling has decreased RESPIRATORY SYSTEM: Unlabored breathing , decreased breath sounds at bases HEART: S1 S2 regular rate and rhythm , ABDOMEN: Soft , no tenderness EXTREMITIES: No edema feet - Labs CBC & Chem 7: 07/24/21 07:30 07/24/21 07:30 Labs: Abnormal Lab Results - Last 24 Hours (Table) 07/24/21 07/24/21 Range/Units 07:30 07:30 Plt Count 23 L D (150-450) k/uL Potassium 3.2 L (3.5-5.1) mmol/L Chloride 109 H (98-107) mmol/L BUN 2 L (9-20) mg/dL Creatinine 0.49 L (0.66-1.25) mg/dL Calcium 7.5 L (8.4-10.2) mg/dL Magnesium 1.2 L (1.6-2.3) mg/dL Microbiology - Last 24 Hours (Table) 07/23/21 00:12 Urine Culture - Final Urine,Voided 07/22/21 22:09 Blood Culture - Preliminary Blood No Growth after 24 hours 07/22/21 22:41 Blood Culture - Preliminary Blood No Growth after 24 hours Assessment and Plan (1) Neutropenic fever Current Visit: Yes Status: Acute Code(s): D70.9 - NEUTROPENIA, UNSPECIFIED; R50.81 - FEVER PRESENTING WITH CONDITIONS CLASSIFIED ELSEWHERE SNOMED Code(s): 215635640 Plan: 1patient presented to hospital with a fever and this patient recently having a problem with an infected tooth and did have a swelling of the left side of the jaw with concern for possible oral source for this fever versus a PICC line infection that has been there for couple of months now. 2penicillin allergy on her chart however patient mention he has been tested at [facility] and has been told not allergic to penicillin and has taken amoxicillin without any problem clinically doubt true penicillin allergy. 3 CT of the maxillofacial area was negative for any abscess. 4patient to continue with Unasyn 3 g every 6 hours continue with the vancomycin while waiting for the culture to finalize. Time with Patient: Less than 30
--- NOTE | 2021-07-24 17:35 | PN ---
PROGRESS NOTE DATE OF SERVICE: July 24, 2021. CHIEF COMPLAINT: Swollen face. Gonzalez is seen today as a followup. He continues to have some swollen left cheek, but otherwise he feels well. No fever or chills. No melena, hematochezia or hemoptysis. He has some mild nausea. He has some watery diarrhea. CURRENT MEDICATION: Reviewed in his electronic medical record. PHYSICAL EXAMINATION: He is alert, oriented times 3. No distress. His vital signs are temperature 98.7. His temp max was 99.8, pulse is 104, respirations 17, blood pressure 174/89. HEENT: Normocephalic, atraumatic. He has swelling in the left cheek. Neck: Supple. Lungs: Clear to auscultation. Heart is regular rate and rhythm. Abdomen: Soft. No tenderness. Extremities reveal no edema. Skin: No significant bruises or petechiae. Lymphatics: There are no peripherally enlarged cervical or supraclavicular nodes. LABORATORY DATA: His platelet count today of 23, sodium 141, potassium 3.2, chloride 109, CO2 27, BUN is 2, creatinine 0.49. IMPRESSION: 1. Neutropenic fever. Possible from oral source. 2. Myelosuppression related to recent chemotherapy. 3. Possible small rectal abscess. 4. Acute T-cell ALL, currently receiving treatment at [facility]. RECOMMENDATION: 1. Continue broad-spectrum antibiotics as ordered by Infectious Disease. 2. On oral acyclovir. 3. Plan for oral surgery evaluation of his mouth and also a culture will be obtained from the aliyah anal lesion. 4. Continue supportive transfusion. The above was discussed with the patient and nursing staff. MMODL / IJN: [id number] /
[2021-07-24] MEDS ORDERED: LIDOCAINE MISCELLANE SCH (18:00)
[2021-07-24] MEDS ORDERED: CHLORHEXIDINE MISCELLANE SCH (18:00)
[2021-07-24] MEDS: CHLORHEXIDINE GLUCONATE 15 ML CUP MUCOUS MEM SCH ×2 (18:50→20:34)
[2021-07-24 19:43] LABS: Magnesium 2.4 mg/dL (1.6-2.3); Potassium 3.3 mmol/L (3.5-5.1)
[2021-07-24] MEDS: POTASSIUM CHLORIDE ER 20 MEQ TAB.ER PO SCH ×2 (20:37→21:26)
[2021-07-24] MEDS: OLANZapine 5 MG TAB PO SCH (21:25)
[2021-07-25] MEDS: VANCOMYCIN 1,500 MG in SODIUM CHLORIDE 0.9% 250 ML IVPB SCH ×3 (00:05→17:31)
[2021-07-25] MEDS: AMPICILLIN-SULBACTAM 3 GM in SODIUM CHLORIDE 0.9% 100 ML IVPB SCH ×4 (01:38→19:39)
[2021-07-25] MEDS: SODIUM CHLORIDE 0.9% 1,000 ML IV SCH ×3 (01:40→21:17)
[2021-07-25] MEDS: ACETAMINOPHEN TAB 325 MG TAB PO PRN ×2 (05:08→21:15)
[2021-07-25 06:19] LABS: MCH 32.6 pg (25.0-35.0); MCHC 34.7 g/dL (31.0-37.0); Mean Platelet Volume 8.7; RBC 1.93 m/uL (4.30-5.90); RDW 15.4 % (11.5-15.5)
[2021-07-25 06:26] LABS: WBC 0.4 k/uL (3.8-10.6)
[2021-07-25 06:28] LABS: HCT 18.1 % (39.0-53.0); HGB 6.3 gm/dL (13.0-17.5)
[2021-07-25 06:29] LABS: Platelet Count 15 k/uL (150-450)
[2021-07-25 07:21] LABS: African American GFR (CKD) >90 (>60 ml/min/1.73 sqM); Anion Gap 5 mmol/L; Blood Urea Nitrogen <2 mg/dL (9-20); Calcium 7.9 mg/dL (8.4-10.2); Carbon Dioxide 26 mmol/L (22-30); Chloride 109 mmol/L (98-107); Glucose 91 mg/dL (74-99); Magnesium 1.9 mg/dL (1.6-2.3); Non-African American GFR(CKD) >90 (>60 ml/min/1.73 sqM); Potassium 3.5 mmol/L (3.5-5.1); Sodium 140 mmol/L (137-145)
[2021-07-25] MEDS: PANTOPRAZOLE 40 MG TABLET PO SCH (09:02)
[2021-07-25] MEDS: ACYCLOVIR 200 MG CAP PO SCH ×2 (09:02→21:16)
[2021-07-25] MEDS: CHLORHEXIDINE GLUCONATE 15 ML CUP MUCOUS MEM SCH ×4 (09:03→21:17)
[2021-07-25] MEDS ORDERED: Magnesium Replacement Protocol 1 EACH MISC MISCELLANE PRN (10:23)
[2021-07-25] MEDS ORDERED: Potassium Replacement Protocol 1 EACH MISC MISCELLANE PRN (10:23)
[2021-07-25] MEDS: POTASSIUM CHLORIDE ER 20 MEQ TAB.ER PO SCH ×2 (10:44→11:38)
[2021-07-25 13:24] VITALS: BMI 35.6
--- NOTE | 2021-07-25 13:48 | P.PN ---
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 Patient appears to have dental infection involving both the lower molars. Patient was given kanamycin by PCP. Patient is presently actively receiving chemotherapy. Patient denied any cough chest x-ray did not show any pneumonia or any dysuria or increased urinary frequency urinalysis is not significant. Patient was started on cefepime was subsequently admitted. Patient is severely pancytopenic with a platelet count of around 2000 and severely anemic secondary to chemotherapy. 07/24/2021 Patient is still having low-grade fevers fevers independent improved patient looks much better today they patient had a maxillofacial CT which showed a soft tissue infection or cellulitis in the bilateral aspects of the mandible area inside the mouth, maxillofacial surgery will be consulted. Although not examined by me personally I was notified by the nursing staff that the patient has an area in the area which is is draining serous fluid, cultures for that eladio l be obtained and infectious disease is following the patient as well. That lesion on the buttock area is present for about a month. 07/25/2021 Patient examined today sitting up in bed. No acute complaints, denies pain. Fistula cultures prelim showing gram negative bacilli, blood cultures negative so far. Urine culture negative. Continues on IV unasyn, IV vanco. Patient to also receive 1 unit of PRBC's today for hgb of 6.3. WBC 0.4, platelet count 15. No platelet transfusion today, continue to monitor. Potassium 3.5, mag 1.6, patient will receive oral supplementation today. Patient was evaluated by Dr Chong who reviewed CT, recent tooth extraction appears to be healing well, and continue with current antibiotic course. Per nurse patients heart rate has been up into the 180s when ambulating, continue to monitor and continue withy IV hydration. At rest heart rate in the 80s. Review of Systems Constitutional: Denied any fatigue denied any fever. Cardio vascular: denied any chest pain, palpitations Gastrointestinal denied any nausea vomiting Pulmonary: Denied any shortness of breath cough Neurologic denied any new focal deficits All inpatient medications were reviewed and appropriate changes in these medications as dictated in the interval history and assessment and plan. PHYSICAL EXAMINATION: GENERAL: The patient is alert and oriented x3, not in any acute distress. Well developed, well nourished. HEENT: Pupils are round and equally reacting to light. EOMI. No scleral icterus. No conjunctival pallor. Normocephalic, atraumatic. No pharyngeal erythema. No thyromegaly. Face is significantly swollen patient does have a swelling in the jaw with some swelling near the first and second lower molar area bilaterally CARDIOVASCULAR: S1 and S2 present. No murmurs, rubs, or gallops. PULMONARY: Chest is clear to auscultation, no wheezing or crackles. ABDOMEN: Soft, nontender, nondistended, normoactive bowel sounds. No palpable organomegaly. MUSCULOSKELETAL: No joint swelling or deformity. EXTREMITIES: No cyanosis, clubbing, or pedal edema. NEUROLOGICAL: Gross neurological examination did not reveal any focal deficits. SKIN: No rashes. Assessment and plan 1 febrile neutropenia, possible sepsis: Secondary to dental infection rash cellulitis in the maxillary area as mentioned above, also with a perineal fistula which prelim cultures are showing gram negative bacilli continues on IV vancomycin and IV unasyn and is being followed closely by infectious disease. -Severe pancytopenia: Secondary to chemotherapy, oncology is following patient, hgb today 6.3 s/p blood transfusion will recieve another unit of PRBC's today. -T-cell acute lymphocytic leukemia and patient will be continued on acyclovir and continue on current antibiotics -Hypertension continue to monitor -Sinus tachycardia, most likely due to dehydration, infection, and anemia - continue to monitor closely. -Gastroesophageal reflux disease -Depression DVT prophylaxis: defferred DVT prophylaxis because of severe thrombocytopenia GI Prophylaxis: Protonix Full Code The impression and plan of care has been dictated by Rosie Salguero Nurse Practitioner as directed. Dr. Justin MD I have performed a history and physical examination and medical decision making of this patient, discussed the same with the dictator, and agree with the dictators assessment and plan as written, documented as a scribe. Based on total visit time, I have performed more than 50% of this visit. Objective - Vital Signs Vital signs: Vital Signs Temp 98.5 F 07/25/21 08:00 Pulse 90 07/25/21 08:00 Resp 18 07/25/21 08:00 BP 134/73 07/25/21 08:00 Pulse Ox 97 07/25/21 08:00 Intake & Output 07/24/21 07/25/21 07/25/21 18:59 06:59 18:59 Intake Total 118 Balance 118 Weight 100.244 kg Intake: Oral 118 Other: # Voids 2 1 - Labs CBC & Chem 7: 07/25/21 06:10 07/25/21 06:10 Labs: Abnormal Lab Results - Last 24 Hours (Table) 07/23/21 07/24/21 07/24/21 Range/Units 00:15 15:31 19:05 WBC (3.8-10.6) k/uL RBC (4.30-5.90) m/uL Hgb (13.0-17.5) gm/dL Hct (39.0-53.0) % Plt Count (150-450) k/uL Potassium 3.2 L 3.3 L (3.5-5.1) mmol/L Chloride (98-107) mmol/L BUN (9-20) mg/dL Creatinine (0.66-1.25) mg/dL Calcium (8.4-10.2) mg/dL Magnesium 2.4 H (1.6-2.3) mg/dL Crossmatch See Detail 07/25/21 07/25/21 Range/Units 06:10 06:10 WBC 0.4 L* (3.8-10.6) k/uL RBC 1.93 L (4.30-5.90) m/uL Hgb 6.3 L* D (13.0-17.5) gm/dL Hct 18.1 L* (39.0-53.0) % Plt Count 15 L* (150-450) k/uL Potassium (3.5-5.1) mmol/L Chloride 109 H (98-107) mmol/L BUN <2 L (9-20) mg/dL Creatinine 0.48 L (0.66-1.25) mg/dL Calcium 7.9 L (8.4-10.2) mg/dL Magnesium (1.6-2.3) mg/dL Crossmatch Microbiology - Last 24 Hours (Table) 07/24/21 13:20 Gram Stain - Preliminary Fistula Wound Culture - Preliminary Gram Neg Bacilli 07/22/21 22:09 Blood Culture - Preliminary Blood No Growth after 48 hours 07/22/21 22:41 Blood Culture - Preliminary Blood No Growth after 48 hours 07/24/21 13:20 Anaerobic Culture - Preliminary Fistula 07/23/21 00:12 Urine Culture - Final Urine,Voided Assessment and Plan Time with Patient: Less than 30
--- NOTE | 2021-07-25 13:50 | P.PN ---
Subjective Progress Note Date: 07/25/21 Principal diagnosis: Febrile neutropenia, pancytopenia secondary to treatment for ALL Mr. Laboy is a pleasant 21-year-old male that has his 3 time a week lab draws here locally but, is treated by Dr. Barker at [facility] for pediatric ALL. Patient states his last chemo was about 2 weeks ago, he states he is in remission and is currently receiving consolidation chemotherapy while pending transplant. He states that he started having fevers over the last several days, he denied rigors, nausea, vomiting, cough, chest pain, abdominal pain or cramping, dysuria, hematuria, he did state watery diarrhea, he has easy bruising and petechiae on the extremities but, no other bleeding to report. He also has a right lower molar the patient states has been problematic and may be a source of infection. He has been seen by DDS. Objective - Vital Signs Vital signs: Vital Signs Temp 98.7 F 07/25/21 11:40 Pulse 86 07/25/21 11:40 Resp 18 07/25/21 11:40 BP 140/90 07/25/21 11:40 Pulse Ox 97 07/25/21 11:40 Intake & Output 07/24/21 07/25/21 07/25/21 18:59 06:59 18:59 Intake Total 118 0 Balance 118 0 Weight 100.244 kg Intake: Oral 118 Blood Product 0 Rc Irr As1 Unit 0 [id number] Other: # Voids 2 1 - Constitutional General appearance: Present: cooperative, no acute distress, obese - EENT Eyes: Present: anicteric sclerae, EOMI, poor dentition ENT: Present: hearing grossly normal, normal oropharynx - Respiratory Respiratory: bilateral: CTA - Cardiovascular Rhythm: regular Heart sounds: normal: S1, S2 Abnormal Heart Sounds: Absent: systolic murmur, diastolic murmur, rub, S3 Gallop, S4 Gallop, click, other - Peripheral edema leg Peripheral Edema: bilateral: None - Gastrointestinal General gastrointestinal: Present: normal bowel sounds, soft. Absent: absent bowel sounds, decreased bowel sounds, distended, hepatomegaly, hyperactive bowel sounds, organomegaly, rigid, scaphoid, splenomegaly, tenderness, umbilical hernia, ventral hernia - Integumentary Integumentary Comment(s): Bilateral lower extremity petechiae Integumentary: Present: pale - Neurologic Neurologic: Present: CNII-XII intact - Musculoskeletal Musculoskeletal: Present: strength equal bilaterally - Psychiatric Psychiatric: Present: A&O x's 3, appropriate affect, intact judgment & insight - Labs CBC & Chem 7: 07/25/21 06:10 07/25/21 06:10 Labs: Abnormal Lab Results - Last 24 Hours (Table) 07/23/21 07/24/21 07/24/21 Range/Units 00:15 15:31 19:05 WBC (3.8-10.6) k/uL RBC (4.30-5.90) m/uL Hgb (13.0-17.5) gm/dL Hct (39.0-53.0) % Plt Count (150-450) k/uL Potassium 3.2 L 3.3 L (3.5-5.1) mmol/L Chloride (98-107) mmol/L BUN (9-20) mg/dL Creatinine (0.66-1.25) mg/dL Calcium (8.4-10.2) mg/dL Magnesium 2.4 H (1.6-2.3) mg/dL Crossmatch See Detail 07/25/21 07/25/21 Range/Units 06:10 06:10 WBC 0.4 L* (3.8-10.6) k/uL RBC 1.93 L (4.30-5.90) m/uL Hgb 6.3 L* D (13.0-17.5) gm/dL Hct 18.1 L* (39.0-53.0) % Plt Count 15 L* (150-450) k/uL Potassium (3.5-5.1) mmol/L Chloride 109 H (98-107) mmol/L BUN <2 L (9-20) mg/dL Creatinine 0.48 L (0.66-1.25) mg/dL Calcium 7.9 L (8.4-10.2) mg/dL Magnesium (1.6-2.3) mg/dL Crossmatch Microbiology - Last 24 Hours (Table) 07/24/21 13:20 Gram Stain - Preliminary Fistula Wound Culture - Preliminary Gram Neg Bacilli 07/22/21 22:09 Blood Culture - Preliminary Blood No Growth after 48 hours 07/22/21 22:41 Blood Culture - Preliminary Blood No Growth after 48 hours 07/24/21 13:20 Anaerobic Culture - Preliminary Fistula 07/23/21 00:12 Urine Culture - Final Urine,Voided Assessment and Plan (1) Neutropenic fever Narrative/Plan: [facility] cycle started 07/07, and pt is currently 19 days out. Anticipate count recovery next week. Did get the OK to add a few days of GCSF to encourage recovery of WBC. Minimal dosing. Pt has had jaw imaging. He has been seen by Oral Surgeon with no acute interven tion felt needed. Pt is on abx, DDS recommends monitoring and reviewed oral hygiene with pt. Pancultures pending, so far negative. Stool neg for c-diff. Current Visit: Yes Status: Acute Priority: High Code(s): D70.9 - NEUTROPENIA, UNSPECIFIED; R50.81 - FEVER PRESENTING WITH CONDITIONS CLASSIFIED ELSEWHERE SNOMED Code(s): 906439812 (2) Pancytopenia due to antineoplastic chemotherapy Narrative/Plan: Irradiated blood products. Transfuse for Hgb 6.5, plt < 10,000 unless symptomatic. GCSF cleared for minimal dosing to acutely improve WBC/ANC in setting of concern for acute infection. Current Visit: Yes Status: Acute Priority: High Code(s): D61.810 - ANTINEOPLASTIC CHEMOTHERAPY INDUCED PANCYTOPENIA; T45.1X5A - ADVERSE EFFECT OF ANTINEOPLASTIC AND IMMUNOSUP DRUGS, INIT SNOMED Code(s): 808750725892351 (3) Hypokalemia Narrative/Plan: On replacement protocol Current Visit: Yes Status: Acute Priority: Medium Code(s): E87.6 - HYP OKALEMIA SNOMED Code(s): 25118503 (4) Hypomagnesemia Narrative/Plan: On replacement protocol Current Visit: Yes Status: Acute Priority: Medium Code(s): E83.42 - HYPOMAGNESEMIA SNOMED Code(s): 899506609 Plan: Doctor attests: I performed a history and physical examination of this patient, developed impression and plan of care. Discussed with dictator. I agree with dictators note, documented as a scribe. Time with Patient: Greater than 30
[2021-07-25] MEDS: MAGNESIUM SULFATE-D5W PMX 1 GM in DEXTROSE/WATER 1 100ML.BAG IVPB SCH ×2 (15:09→16:27)
[2021-07-25] MEDS: FILGRASTIM-SNDZ 480 MCG/0.8 ML SYRINGE SQ SCH (17:51)
--- NOTE | 2021-07-25 18:18 | P.PN ---
Subjective Progress Note Date: 07/25/21 Principal diagnosis: Febrile neutropenia and left lower joint infection Patient is a 21-year-old male with a past medical history significant for T-cell lymphoma for the patient is currently on chemotherapy last chemo was 2 weeks ago and also have extension of left lower jaw teeth presented to hospital with a fever and left lower jaw swelling, CT was negative for any abscess. Patient apparently did have a draining sinus between his rectum and scrotal area that has been there for 3 months did not mention it on the initial evaluation culture had been obtained from it on 07/24/2021 On today's evaluation that is 07/25/2021, the patient is afebrile today the patient is feeling better the left lower jaw swelling has improved, the patient denies any difficulty swallowing or chest pain shortness of breath or cough no abdominal pain or diarrhea Objective - Vital Signs Vital signs: Vital Signs Temp 99.3 F 07/25/21 12:10 Pulse 88 07/25/21 13:33 Resp 18 07/25/21 13:33 BP 172/108 07/25/21 12:10 Pulse Ox 97 07/25/21 12:10 Intake & Output 07/24/21 07/25/21 07/25/21 18:59 06:59 18:59 Intake Total 118 0 Balance 118 0 Weight 100.244 kg Intake: Oral 118 Blood Product 0 Rc Irr As1 Unit 0 [id number] Other: # Voids 2 1 - Exam GENERAL DESCRIPTION: A middle-age male lying in bed in no distress HEENT: Left lower jaw swelling has decreased RESPIRATORY SYSTEM: Unlabored breathing , decreased breath sounds at bases HEART: S1 S2 regular rate and rhythm , ABDOMEN: Soft , no tenderness EXTREMITIES: No edema feet - Labs CBC & Chem 7: 07/25/21 06:10 07/25/21 06:10 Labs: Abnormal Lab Results - Last 24 Hours (Table) 07/23/21 07/24/21 07/24/21 Range/Units 00:15 15:31 19:05 WBC (3.8-10.6) k/uL RBC (4.30-5.90) m/uL Hgb (13.0-17.5) gm/dL Hct (39.0-53.0) % Plt Count (150-450) k/uL Potassium 3.2 L 3.3 L (3.5-5.1) mmol/L Chloride (98-107) mmol/L BUN (9-20) mg/dL Creatinine (0.66-1.25) mg/dL Calcium (8.4-10.2) mg/dL Magnesium 2.4 H (1.6-2.3) mg/dL Crossmatch See Detail 07/25/21 07/25/21 Range/Units 06:10 06:10 WBC 0.4 L* (3.8-10.6) k/uL RBC 1.93 L (4.30-5.90) m/uL Hgb 6.3 L* D (13.0-17.5) gm/dL Hct 18.1 L* (39.0-53.0) % Plt Count 15 L* (150-450) k/uL Potassium (3.5-5.1) mmol/L Chloride 109 H (98-107) mmol/L BUN <2 L (9-20) mg/dL Creatinine 0.48 L (0.66-1.25) mg/dL Calcium 7.9 L (8.4-10.2) mg/dL Magnesium (1.6-2.3) mg/dL Crossmatch Microbiology - Last 24 Hours (Table) 07/24/21 13:20 Gram Stain - Preliminary Fistula Wound Culture - Preliminary Gram Neg Bacilli 07/22/21 22:09 Blood Culture - Preliminary Blood No Growth after 48 hours 07/22/21 22:41 Blood Culture - Preliminary Blood No Growth after 48 hours 07/24/21 13:20 Anaerobic Culture - Preliminary Fistula Assessment and Plan (1) Neutropenic fever Current Visit: Yes Status: Acute Priority: High Code(s): D70.9 - NEUTROPENIA, UNSPECIFIED; R50.81 - FEVER PRESENTING WITH CONDITIONS CLASSIFIED ELSEWHERE SNOMED Code(s): 075889862 Plan: 1patient presented to hospital with a fever and this patient recently having a problem with an infected tooth and did have a swelling of the left side of the jaw with concern for possible oral source for this fever versus a PICC line infection that has been there for couple of months now. The patient blood culture had been negative that we make PICC line infection to be less likely patient now have a draining sinus between the scrotum and the rectum area and a question of possible fistula or perianal abscess 2we will obtain a CT of the pelvis with contrast to rule out any abscess or fistula formation 3patient to continue with Unasyn 3 g every 6 hours however discontinue vancomycin Time with Patient: Less than 30
[2021-07-25] MEDS: IOPAMIDOL CONTRAST (ORAL USE) VIAL PO PRN ×2 (18:40→19:37)
[2021-07-25] MEDS: OLANZapine 5 MG TAB PO SCH (21:17)
[2021-07-25] MEDS: carvediloL 12.5 MG TAB PO SCH (21:17)
--- NOTE | 2021-07-25 21:32 | CT ---
EXAMINATION TYPE: CT pelvis w con CT DLP: 1267 mGycm, Automated exposure control for dose reduction was used. DATE OF EXAM: 07/25/2021 8:23 PM COMPARISON: CT abdomen pelvis most recent from 11/19/2020 . CLINICAL INDICATION:Male, 21 years old with history of draining sinus between close to anal canal r/o abs; R/O abscess fistula TECHNIQUE: Standard CT of the abdomen and pelvis following the administration of 100 cc of Isovue 3 00 IV contrast material and oral contrast. Coronal and sagittal reformats were performed. FINDINGS: BLADDER: Unremarkable REPRODUCTIVE: Unremarkable. ABDOMEN & PELVIS STOMACH AND BOWEL: No evidence of bowel obstruction. PERITONEUM: No evidence of pneumoperitoneum or free fluid. VASCULATURE: No evidence of aortic aneurysm. MUSCULOSKELETAL: No acute osseous abnormalities LYMPH NODES: No gross evidence for lymphadenopathy. SOFT TISSUE/ABDOMINAL WALL: No evidence of abscess. Soft tissue stranding which could represent fistu lous track is seen through the left perianal fat however it is suboptimally evaluated given CT techni que. IMPRESSION: No evidence of the organizing fluid collection. Findings of likely fistulous tract on the left perine um/perianal space.
[2021-07-25] MEDS: amLODIPine 10 MG TAB PO SCH (22:55)
[2021-07-25 23:38] LABS: HCT 24.2 % (39.0-53.0); MCH 31.5 pg (25.0-35.0); MCHC 33.6 g/dL (31.0-37.0); MCV 93.8 fL (80.0-100.0); Mean Platelet Volume 8.1; RBC 2.58 m/uL (4.30-5.90); RDW 15.7 % (11.5-15.5)
[2021-07-25 23:40] LABS: Platelet Count 14 k/uL (150-450); WBC 0.4 k/uL (3.8-10.6)
[2021-07-25 23:41] LABS: HGB 8.1 gm/dL (13.0-17.5)
[2021-07-26] MEDS: AMPICILLIN-SULBACTAM 3 GM in SODIUM CHLORIDE 0.9% 100 ML IVPB SCH ×3 (00:18→12:15)
[2021-07-26 00:58] LABS: Anisocytosis (M) Present
[2021-07-26] MEDS ORDERED: VANCOMYCIN TROUGH DUE 1 EACH MISC MISCELLANE ONE (07:00)
[2021-07-26 07:45] LABS: HCT 21.2 % (39.0-53.0); HGB 7.3 gm/dL (13.0-17.5); MCHC 34.5 g/dL (31.0-37.0); MCV 92.7 fL (80.0-100.0); Mean Platelet Volume 9.5; RBC 2.28 m/uL (4.30-5.90); RDW 14.9 % (11.5-15.5)
[2021-07-26] MEDS: CHLORHEXIDINE GLUCONATE 15 ML CUP MUCOUS MEM SCH ×4 (07:54→20:46)
[2021-07-26] MEDS: PANTOPRAZOLE 40 MG TABLET PO SCH (07:54)
[2021-07-26] MEDS: carvediloL 12.5 MG TAB PO SCH ×2 (07:54→16:08)
[2021-07-26 07:55] LABS: Platelet Count 8 k/uL (150-450); WBC 0.4 k/uL (3.8-10.6)
[2021-07-26 08:24] LABS: African American GFR (CKD) >90 (>60 ml/min/1.73 sqM); Anion Gap 4 mmol/L; Blood Urea Nitrogen 4 mg/dL (9-20); Calcium 8.1 mg/dL (8.4-10.2); Carbon Dioxide 27 mmol/L (22-30); Chloride 110 mmol/L (98-107); Glucose 91 mg/dL (74-99); Magnesium 1.9 mg/dL (1.6-2.3); Non-African American GFR(CKD) >90 (>60 ml/min/1.73 sqM); Sodium 141 mmol/L (137-145)
[2021-07-26 08:39] LABS: RBC Morphology Normal
[2021-07-26] MEDS: MAGNESIUM SULFATE-D5W PMX 1 GM in DEXTROSE/WATER 1 100ML.BAG IVPB SCH ×2 (09:59→11:11)
[2021-07-26] MEDS: ACYCLOVIR 200 MG CAP PO SCH ×2 (10:03→20:45)
[2021-07-26] MEDS: ACETAMINOPHEN TAB 325 MG TAB PO PRN ×2 (11:10→20:55)
--- NOTE | 2021-07-26 15:07 | P.PN ---
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 Patient appears to have dental infection involving both the lower molars. Patient was given kanamycin by PCP. Patient is presently actively receiving chemotherapy. Patient denied any cough chest x-ray did not show any pneumonia or any dysuria or increased urinary frequency urinalysis is not significant. Patient was started on cefepime was subsequently admitted. Patient is severely pancytopenic with a platelet count of around 2000 and severely anemic secondary to chemotherapy. 07/24/2021 Patient is still having low-grade fevers fevers independent improved patient looks much better today they patient had a maxillofacial CT which showed a soft tissue infection or cellulitis in the bilateral aspects of the mandible area inside the mouth, maxillofacial surgery will be consulted. Although not examined by me personally I was notified by the nursing staff that the patient has an area in the area which is is draining serous fluid, cultures for that eladio l be obtained and infectious disease is following the patient as well. That lesion on the buttock area is present for about a month. 07/25/2021 Patient examined today sitting up in bed. No acute complaints, denies pain. Fistula cultures prelim showing gram negative bacilli, blood cultures negative so far. Urine culture negative. Continues on IV unasyn, IV vanco. Patient to also receive 1 unit of PRBC's today for hgb of 6.3. WBC 0.4, platelet count 15. No platelet transfusion today, continue to monitor. Potassium 3.5, mag 1.6, patient will receive oral supplementation today. Patient was evaluated by Dr Chong who reviewed CT, recent tooth extraction appears to be healing well, and continue with current antibiotic course. Per nurse patients heart rate has been up into the 180s when ambulating, continue to monitor and continue withy IV hydration. At rest heart rate in the 80s. 07/26/2021 Patient evaluated today resting in bed. Hgb today 7.3 status post 1 unit PRBC's, platelet count 8. Patient ordered for 1 unit of platelets today. WBC today 0.4, potassium 4.0, mag 1.9. Pelvic CT completed shows fistulous tract left perineum/perianal space. Will consult general surgery for further review. Fistula culture positive for E.Coli with drug resistance. ID following closely. Patient had a fever 100.1 today, otherwise vitals stable. Denies pain, shortness of breath. states having bowel movements and urinating without difficulty. Facial swelling not better or worse per patient. Review of Systems Constitutional: Denied any fatigue denied any fever. Cardio vascular: denied any chest pain, palpitations Gastrointestinal denied any nausea vomiting Pulmonary: Denied any shortness of breath cough Neurologic denied any new focal deficits All inpatient medications were reviewed and appropriate changes in these medications as dictated in the interval history and assessment and plan. PHYSICAL EXAMINATION: GENERAL: The patient is alert and oriented x3, not in any acute distress. Well developed, well nourished. HEENT: Pupils are round and equally reacting to light. EOMI. No scleral icterus. No conjunctival pallor. Normocephalic, atraumatic. No pharyngeal erythema. No thyromegaly. Face is significantly swollen patient does have a swelling in the jaw with some swelling near the first and second lower molar area bilaterally CARDIOVASCULAR: S1 and S2 present. No murmurs, rubs, or gallops. PULMONARY: Chest is clear to auscultation, no wheezing or crackles. ABDOMEN: Soft, nontender, nondistended, normoactive bowel sounds. No palpable organomegaly. MUSCULOSKELETAL: No joint swelling or deformity. EXTREMITIES: No cyanosis, clubbing, or pedal edema. NEUROLOGICAL: Gross neurological examination did not reveal any focal deficits. SKIN: No rashes. Assessment and plan 1 febrile neutropenia, possible sepsis: Secondary to dental infection rash cellulitis in the maxillary area as mentioned above, also with a perineal fistula which fistula cultures are showing e. coli with drug resistance. ID following closely. -Severe pancytopenia: Secondary to chemotherapy, oncology is following patient, hgb today 7.3 s/p blood transfusion, platelet count 8 today patient will receive 1 unit platelets today. -T-cell acute lymphocytic leukemia and patient will be continued on acyclovir and continue on current antibiotics -Hypertension continue to monitor -Sinus tachycardia, most likely due to dehydration, infection, and anemia - continue to monitor closely. -Elevated troponins likely secondary to sepsis, no chest pain, EKG unremarkable. -Gastroesophageal reflux disease -Depression DVT prophylaxis: defferred DVT prophylaxis because of severe thrombocytopenia GI Prophylaxis: Protonix Full Code The impression and plan of care has been dictated by Rosie Salguero, Nurse Practitioner as directed. Dr. Justin MD I have performed a history and physical examination and medical decision making of this patient, discussed the same with the dictator, and agree with the dictators assessment and plan as written, documented as a scribe. Based on total visit time, I have performed more than 50% of this visit. Objective - Vital Signs Vital signs: Vital Signs Temp 100.1 F H 07/26/21 11:31 Pulse 83 07/26/21 11:31 Resp 16 07/26/21 11:31 BP 115/56 07/26/21 11:31 Pulse Ox 96 07/26/21 11:31 Intake & Output 07/25/21 07/26/21 07/26/21 18:59 06:59 18:59 Intake Total 310 Balance 310 Weight 100.244 kg Intake: Blood Product 310 Rc Irr As1 Unit 310 [id number] Other: # Voids 3 1 2 # Bowel Movements 3 1 1 - Labs CBC & Chem 7: 07/26/21 07:00 07/26/21 07:00 Labs: Abnormal Lab Results - Last 24 Hours (Table) 07/23/21 07/25/21 07/26/21 Range/Units 00:15 20:41 07:00 WBC 0.4 L* (3.8-10.6) k/uL RBC 2.58 L (4.30-5.90) m/uL Hgb 8.1 L D (13.0-17.5) gm/dL Hct 24.2 L (39.0-53.0) % RDW 15.7 H (11.5-15.5) % Plt Count 14 L* (150-450) k/uL Chloride 110 H (98-107) mmol/L BUN 4 L (9-20) mg/dL Creatinine 0.46 L (0.66-1.25) mg/dL Calcium 8.1 L (8.4-10.2) mg/dL Crossmatch See Detail 07/26/21 Range/Units 07:00 WBC 0.4 L* (3.8-10.6) k/uL RBC 2.28 L (4.30-5.90) m/uL Hgb 7.3 L (13.0-17.5) gm/dL Hct 21.2 L (39.0-53.0) % RDW (11.5-15.5) % Plt Count 8 L* (150-450) k/uL Chloride (98-107) mmol/L BUN (9-20) mg/dL Creatinine (0.66-1.25) mg/dL Calcium (8.4-10.2) mg/dL Crossmatch Microbiology - Last 24 Hours (Table) 07/24/21 13:20 Gram Stain - Final Fistula Wound Culture - Final Escherichia coli 07/22/21 22:09 Blood Culture - Preliminary Blood No Growth after 72 hours 07/22/21 22:41 Blood Culture - Preliminary Blood No Growth after 72 hours Assessment and Plan Time with Patient: Less than 30
[2021-07-26] MEDS: metroNIDAZOLE 500 MG TAB PO SCH ×2 (16:08→20:45)
[2021-07-26] MEDS: FILGRASTIM-SNDZ 480 MCG/0.8 ML SYRINGE SQ SCH (16:12)
[2021-07-26] MEDS: SODIUM CHLORIDE 0.9% 1,000 ML IV SCH (20:46)
[2021-07-26] MEDS: OLANZapine 5 MG TAB PO SCH (20:46)
[2021-07-26] MEDS: amLODIPine 10 MG TAB PO SCH (20:46)
--- NOTE | 2021-07-26 21:24 | P.PN ---
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 Objective - Vital Signs Vital signs: Vital Signs Temp 100.2 F H 07/26/21 20:00 Pulse 87 07/26/21 20:00 Resp 16 07/26/21 20:00 BP 137/79 07/26/21 20:00 Pulse Ox 99 07/26/21 20:00 Intake & Output 07/26/21 07/26/21 07/27/21 06:59 18:59 06:59 Intake Total 492 Balance 492 Intake: Oral 240 Blood Product 252 Platelet Pheresis Pas 252 Psoralen Unit [id number] Other: # Voids 1 1 # Bowel Movements 1 1 - Constitutional Constitutional Comment(s): cushingoid appearance General appearance: Present: cooperative, no acute distress, obese - EENT Eyes: Present: anicteric sclerae, EOMI ENT: Present: hearing grossly normal, normal oropharynx - Respiratory Respiratory: bilateral: CTA - Cardiovascular Rhythm: regular Heart sounds: normal: S1, S2 Abnormal Heart Sounds: Absent: systolic murmur, diastolic murmur, rub, S3 Gallop, S4 Gallop, click, other - Peripheral edema leg Peripheral Edema: bilateral: Trace - Gastrointestinal General gastrointestinal: Present: normal bowel sounds, soft - Neurologic Neurologic: Present: CNII-XII intact (grossly) - Musculoskeletal Musculoskeletal: Present: strength equal bilaterally - Psychiatric Psychiatric: Present: A&O x's 3, appropriate affect, intact judgment & insight - Labs CBC & Chem 7: 07/26/21 07:00 07/26/21 07:00 Labs: Abnormal Lab Results - Last 24 Hours (Table) 07/25/21 07/26/21 07/26/21 Range/Units 20:41 07:00 07:00 WBC 0.4 L* 0.4 L* (3.8-10.6) k/uL RBC 2.58 L 2.28 L (4.30-5.90) m/uL Hgb 8.1 L D 7.3 L (13.0-17.5) gm/dL Hct 24.2 L 21.2 L (39.0-53.0) % RDW 15.7 H (11.5-15.5) % Plt Count 14 L* 8 L* (150-450) k/uL Chloride 110 H (98-107) mmol/L BUN 4 L (9-20) mg/dL Creatinine 0.46 L (0.66-1.25) mg/dL Calcium 8.1 L (8.4-10.2) mg/dL Microbiology - Last 24 Hours (Table) 07/24/21 13:20 Gram Stain - Final Fistula Wound Culture - Final Escherichia coli 07/22/21 22:09 Blood Culture - Preliminary Blood No Growth after 72 hours 07/22/21 22:41 Blood Culture - Preliminary Blood No Growth after 72 hours - Imaging and Cardiology CT scan - pelvis: report reviewed Assessment and Plan (1) Neutropenic fever Narrative/Plan: Spoke with Dr. Barker at [facility]. Pt cycle started 07/07, and pt is currently 20 days out. Anticipate count recovery next week. Did get the OK to add a few days of GCSF to encourage recovery of WBC, started 07/25. Minimal dosing. Pt has had jaw imaging. He has been seen by Oral Surgeon with no acute intervention felt needed. Pt is on abx, DDS recommends monitoring and reviewed oral hygiene with pt. Pancultures pending, so far negative. Stool neg for c-diff. CT pelvis showed perineal fistula. Pt is on abx Current Visit: Yes Status: Acute Priority: High Code(s): D70.9 - NEUTROPENIA, UNSPECIFIED; R50.81 - FEVER PRESENTING WITH CONDITIONS CLASSIFIED E LSEWHERE SNOMED Code(s): 397486138 (2) Pancytopenia due to antineoplastic chemotherapy Narrative/Plan: Irradiated blood products. Transfuse for Hgb 6.5, plt < 10,000 unless symptomatic, plt 8K today, 1 unit SDP ordered. GCSF cleared for minimal dosing to acutely improve WBC/ANC in setting of concern for acute infection, no change in WBC today. Current Visit: Yes Status: Acute Priority: High Code(s): D61.810 - ANTINEO PLASTIC CHEMOTHERAPY INDUCED PANCYTOPENIA; T45.1X5A - ADVERSE EFFECT OF ANTINEOPLASTIC AND IMMUNOSUP DRUGS, INIT SNOMED Code(s): 001001894153137 (3) Hypokalemia Narrative/Plan: On replacement protocol. K+ 4 today Current Visit: Yes Status: Acute Priority: Medium Code(s): E87.6 - HYPOKALEMIA SNOMED Code(s): 58771730 (4) Hypomagnesemia Narrative/Plan: On replacement protocol. Mag 1.9 today Current Visit: Yes Status: Acute Priority: Medium Code(s): E83.42 - HYPOMAGNESEMIA SNOMED Code(s): 183499083 Plan: Labs daily
--- NOTE | 2021-07-26 23:05 | P.PN ---
Subjective Progress Note Date: 07/26/21 Principal diagnosis: Febrile neutropenia and left lower joint infection Patient is a 21-year-old male with a past medical history significant for T-cell lymphoma for the patient is currently on chemotherapy last chemo was 2 weeks ago and also have extension of left lower jaw teeth presented to hospital with a fever and left lower jaw swelling, CT was negative for any abscess. Patient apparently did have a draining sinus between his rectum and scrotal area that has been there for 3 months did not mention it on the initial evaluation culture had been obtained from it on 07/24/2021 On today's evaluation that is 07/26/2021, the patient remains to be afebrile, the patient denies any worsening pain and swelling to the left lower jaw area, the patient denies any difficulty swallowing or chest pain shortness of breath or cough no abdominal pain or diarrhea Objective - Vital Signs Vital signs: Vital Signs Temp 100.3 F H 07/26/21 08:00 Pulse 101 H 07/26/21 08:47 Resp 14 07/26/21 09:41 BP 136/86 07/26/21 08:00 Pulse Ox 95 07/26/21 08:00 Intake & Output 07/25/21 07/26/21 07/26/21 18:59 06:59 18:59 Intake Total 310 Balance 310 Weight 100.244 kg Intake: Blood Product 310 Rc Irr As1 Unit 310 [id number] Other: # Voids 3 1 # Bowel Movements 3 1 - Exam GENERAL DESCRIPTION: A middle-age male lying in bed in no distress HEENT: Left lower jaw swelling has decreased RESPIRATORY SYSTEM: Unlabored breathing , decreased breath sounds at bases HEART: S1 S2 regular rate and rhythm , ABDOMEN: Soft , no tenderness EXTREMITIES: No edema feet - Labs CBC & Chem 7: 07/26/21 07:00 07/26/21 07:00 Labs: Abnormal Lab Results - Last 24 Hours (Table) 07/23/21 07/25/21 07/26/21 Range/Units 00:15 20:41 07:00 WBC 0.4 L* (3.8-10.6) k/uL RBC 2.58 L (4.30-5.90) m/uL Hgb 8.1 L D (13.0-17.5) gm/dL Hct 24.2 L (39.0-53.0) % RDW 15.7 H (11.5-15.5) % Plt Count 14 L* (150-450) k/uL Chloride 110 H (98-107) mmol/L BUN 4 L (9-20) mg/dL Creatinine 0.46 L (0.66-1.25) mg/dL Calcium 8.1 L (8.4-10.2) mg/dL Crossmatch See Detail 07/26/21 Range/Units 07:00 WBC 0.4 L* (3.8-10.6) k/uL RBC 2.28 L (4.30-5.90) m/uL Hgb 7.3 L (13.0-17.5) gm/dL Hct 21.2 L (39.0-53.0) % RDW (11.5-15.5) % Plt Count 8 L* (150-450) k/uL Chloride (98-107) mmol/L BUN (9-20) mg/dL Creatinine (0.66-1.25) mg/dL Calcium (8.4-10.2) mg/dL Crossmatch Microbiology - Last 24 Hours (Table) 07/22/21 22:09 Blood Culture - Preliminary Blood No Growth after 72 hours 07/22/21 22:41 Blood Culture - Preliminary Blood No Growth after 72 hours 07/24/21 13:20 Gram Stain - Preliminary Fistula Wound Culture - Preliminary Gram Neg Bacilli Assessment and Plan (1) Neutropenic fever Current Visit: Yes Status: Acute Priority: High Code(s): D70.9 - NEUTROPENIA, UNSPECIFIED; R50.81 - FEVER PRESENTING WITH CONDITIONS CLASSIFIED ELSEWHERE SNOMED Code(s): 596132801 Plan: 1patient presented to hospital with a fever and this patient recently having a problem with an infected tooth and did have a swelling of the left side of the jaw with concern for possible oral source for this fever versus a PICC line infection that has been there for couple of months now. The patient blood culture had been negative that we make PICC line infection to be less likely patient now have a draining sinus between the scrotum and the rectum area and a question of possible fistula or perianal abscess 2 CT of the pelvis with contrast was reviewed with the radiologist Dr. Miles and there was no evidence of any pelvic abscess or fistula 3patient blood cultures negative however cultures obtained from the possible fistula is growing E. coli that is resistant to Zosyn and intermediate to Unasyn antibiotics switched over to Rocephin and Flagyl Time with Patient: Less than 30
[2021-07-27] MEDS: PANTOPRAZOLE 40 MG TABLET PO SCH (06:41)
[2021-07-27] MEDS: carvediloL 12.5 MG TAB PO SCH ×2 (06:41→17:43)
[2021-07-27] MEDS: CHLORHEXIDINE GLUCONATE 15 ML CUP MUCOUS MEM SCH ×4 (06:41→21:05)
[2021-07-27 07:43] LABS: HCT 22.2 % (39.0-53.0); HGB 7.5 gm/dL (13.0-17.5); MCH 31.5 pg (25.0-35.0); MCHC 33.8 g/dL (31.0-37.0); MCV 93.1 fL (80.0-100.0); Mean Platelet Volume 8.5; RBC 2.38 m/uL (4.30-5.90); RDW 15.5 % (11.5-15.5)
[2021-07-27 07:55] LABS: WBC 0.4 k/uL (3.8-10.6)
[2021-07-27 08:10] LABS: African American GFR (CKD) >90 (>60 ml/min/1.73 sqM); Anion Gap 4 mmol/L; Blood Urea Nitrogen 5 mg/dL (9-20); Calcium 8.1 mg/dL (8.4-10.2); Carbon Dioxide 27 mmol/L (22-30); Chloride 108 mmol/L (98-107); Magnesium 1.8 mg/dL (1.6-2.3); Non-African American GFR(CKD) >90 (>60 ml/min/1.73 sqM); Potassium 4.2 mmol/L (3.5-5.1); Sodium 139 mmol/L (137-145)
[2021-07-27 08:14] LABS: Glucose 89 mg/dL (74-99)
[2021-07-27] MEDS ORDERED: MAGNESIUM SULFATE-D5W PMX 1 GM in DEXTROSE/WATER 1 100ML.BAG IVPB ONE (09:02)
[2021-07-27] MEDS: ACYCLOVIR 200 MG CAP PO SCH ×2 (09:13→21:05)
[2021-07-27 09:14] LABS: RBC Morphology Normal
[2021-07-27] MEDS: MAGNESIUM OXIDE 400 MG TAB PO SCH (09:14)
[2021-07-27] MEDS: metroNIDAZOLE 500 MG TAB PO SCH ×3 (09:14→21:05)
[2021-07-27 09:15] LABS: Platelet Count 15 k/uL (150-450)
--- NOTE | 2021-07-27 14:53 | P.PN ---
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 Patient appears to have dental infection involving both the lower molars. Patient was given kanamycin by PCP. Patient is presently actively receiving chemotherapy. Patient denied any cough chest x-ray did not show any pneumonia or any dysuria or increased urinary frequency urinalysis is not significant. Patient was started on cefepime was subsequently admitted. Patient is severely pancytopenic with a platelet count of around 2000 and severely anemic secondary to chemotherapy. 07/24/2021 Patient is still having low-grade fevers fevers independent improved patient looks much better today they patient had a maxillofacial CT which showed a soft tissue infection or cellulitis in the bilateral aspects of the mandible area inside the mouth, maxillofacial surgery will be consulted. Although not examined by me personally I was notified by the nursing staff that the patient has an area in the area which is is draining serous fluid, cultures for that eladio l be obtained and infectious disease is following the patient as well. That lesion on the buttock area is present for about a month. 07/25/2021 Patient examined today sitting up in bed. No acute complaints, denies pain. Fistula cultures prelim showing gram negative bacilli, blood cultures negative so far. Urine culture negative. Continues on IV unasyn, IV vanco. Patient to also receive 1 unit of PRBC's today for hgb of 6.3. WBC 0.4, platelet count 15. No platelet transfusion today, continue to monitor. Potassium 3.5, mag 1.6, patient will receive oral supplementation today. Patient was evaluated by Dr Chong who reviewed CT, recent tooth extraction appears to be healing well, and continue with current antibiotic course. Per nurse patients heart rate has been up into the 180s when ambulating, continue to monitor and continue withy IV hydration. At rest heart rate in the 80s. 07/26/2021 Patient evaluated today resting in bed. Hgb today 7.3 status post 1 unit PRBC's, platelet count 8. Patient ordered for 1 unit of platelets today. WBC today 0.4, potassium 4.0, mag 1.9. Pelvic CT completed shows fistulous tract left perineum/perianal space. Will consult general surgery for further review. Fistula culture positive for E.Coli with drug resistance. ID following closely. Patient had a fever 100.1 today, otherwise vitals stable. Denies pain, shortness of breath. states having bowel movements and urinating without difficulty. Facial swelling not better or worse per patient. 07/27/2021 Patient evaluated today resting in bed. Platelet count today 15 status post platelet transfusion yesterday, hemoglobin stable 7.5. Unsure whether he is still draining from fistula. Culture from fistula showing E.Coli with resistance. Antibiotics have been changed to IV ceftriaxone and oral flagyl. Blood culture negative so far, urine culture negative. He is being followed by ID. Patient states today jaw swelling is improving. States pain is also improving, denies sore throat, able to eat. Patient has had one fever in the last 48 hours, which is improvement. Potassium today 4.2, magneisum 1.8. Started on oral magnesium supplement. Received 1 gram IV today as well. Pending surgical consult for further evaluation of fistula. Review of Systems Constitutional: Denied any fatigue denied any fever. Cardio vascular: denied any chest pain, palpitations Gastrointestinal denied any nausea vomiting, no diarrhea. Pulmonary: Denied any shortness of breath cough Neurologic denied any new focal deficits All inpatient medications were reviewed and appropriate changes in these medications as dictated in the interval history and assessment and plan. PHYSICAL EXAMINATION: GENERAL: The patient is alert and oriented x3, not in any acute distress. Well developed, well nourished. HEENT: Pupils are round and equally reacting to light. EOMI. No scleral icterus. No conjunctival pallor. Normocephalic, atraumatic. No pharyngeal erythema. No thyromegaly. Face is significantly swollen patient does have a swelling in the jaw with some swelling near the first and second lower molar area bilaterally, improved slightly. CARDIOVASCULAR: S1 and S2 present. No murmurs, rubs, or gallops. PULMONARY: Chest is clear to auscultation, no wheezing or crackles. ABDOMEN: Soft, nontender, nondistended, normoactive bowel sounds. No palpable organomegaly. MUSCULOSKELETAL: No joint swelling or deformity. EXTREMITIES: No cyanosis, clubbing, or pedal edema. NEUROLOGICAL: Gross neurological examination did not reveal any focal deficits. SKIN: No rashes. Assessment and plan 1 febrile neutropenia, possible sepsis: Secondary to dental infection rash cellulitis in the maxillary area is improving, also with a perineal fistula which fistula cultures are showing e. coli with drug resistance. ID following closely. -Severe pancytopenia: Secondary to chemotherapy, oncology is following patient, hgb today 7.5 s/p blood transfusion, platelet count 15 today s/p transfusion. 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 -Elevated troponins likely secondary to sepsis, no chest pain, EKG unremarkable. -Gastroesophageal reflux disease -Depression DVT prophylaxis: defferred DVT prophylaxis because of severe thrombocytopenia GI Prophylaxis: Protonix Full Code The impression and plan of care has been dictated by Rosie Salguero, Nurse Practitioner as directed. Dr. Justin MD I have performed a history and physical examination and medical decision making of this patient, discussed the same with the dictator, and agree with the dictators assessment and plan as written, documented as a scribe. Based on total visit time, I have performed more than 50% of this visit. Objective - Vital Signs Vital signs: Vital Signs Temp 98.7 F 07/27/21 11:10 Pulse 92 07/27/21 11:10 Resp 20 07/27/21 11:10 BP 135/68 07/27/21 11:10 Pulse Ox 98 07/27/21 11:10 Intake & Output 07/26/21 07/27/21 07/27/21 18:59 06:59 18:59 Intake Total 492 360 Balance 492 360 Weight 100.244 kg Intake: Oral 240 360 Blood Product 252 Platelet Pheresis Pas 252 Psoralen Unit [id number] Other: # Voids 1 2 # Bowel Movements 1 - Labs CBC & Chem 7: 07/27/21 06:45 07/27/21 06:45 Labs: Abnormal Lab Results - Last 24 Hours (Table) 07/27/21 07/27/21 Range/Units 06:45 06:45 WBC 0.4 L* (3.8-10.6) k/uL RBC 2.38 L (4.30-5.90) m/uL Hgb 7.5 L (13.0-17.5) gm/dL Hct 22.2 L (39.0-53.0) % Plt Count 15 L* D (150-450) k/uL Chloride 108 H (98-107) mmol/L BUN 5 L (9-20) mg/dL Creatinine 0.48 L (0.66-1.25) mg/dL Calcium 8.1 L (8.4-10.2) mg/dL Microbiology - Last 24 Hours (Table) 07/22/21 22:09 Blood Culture - Preliminary Blood No Growth after 96 hours 07/22/21 22:41 Blood Culture - Preliminary Blood No Growth after 96 hours 07/24/21 13:20 Gram Stain - Final Fistula Wound Culture - Final Escherichia coli Assessment and Plan Time with Patient: Less than 30
--- NOTE | 2021-07-27 15:30 | P.PN ---
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 He admits to loose stool. Objective - Vital Signs Vital signs: Vital Signs Temp 98.7 F 07/27/21 11:10 Pulse 92 07/27/21 11:10 Resp 20 07/27/21 11:10 BP 135/68 07/27/21 11:10 Pulse Ox 98 07/27/21 11:10 Intake & Output 07/26/21 07/27/21 07/27/21 18:59 06:59 18:59 Intake Total 492 360 Balance 492 360 Weight 100.244 kg Intake: Oral 240 360 Blood Product 252 Platelet Pheresis Pas 252 Psoralen Unit [id number] Other: # Voids 1 2 # Bowel Movements 1 - Constitutional Constitutional Comment(s): cushingoid appearance General appearance: Present: cooperative, no acute distress, obese - EENT Eyes: Present: anicteric sclerae, EOMI ENT: Present: hearing grossly normal, normal oropharynx - Respiratory Respiratory: bilateral: CTA - Cardiovascular Rhythm: regular Heart sounds: normal: S1, S2 Abnormal Heart Sounds: Absent: systolic murmur, diastolic murmur, rub, S3 Gallop, S4 Gallop, click, other - Peripheral edema leg Peripheral Edema: bilateral: Trace - Gastrointestinal General gastrointestinal: Present: normal bowel sounds, soft - Integumentary Integumentary: Present: pale - Neurologic Neurologic: Present: CNII-XII intact - Musculoskeletal Musculoskeletal: Present: strength equal bilaterally - Psychiatric Psychiatric: Present: A&O x's 3, appropriate affect, intact judgment & insight - Labs CBC & Chem 7: 07/27/21 06:45 07/27/21 06:45 Labs: Abnormal Lab Results - Last 24 Hours (Table) 07/27/21 07/27/21 Range/Units 06:45 06:45 WBC 0.4 L* (3.8-10.6) k/uL RBC 2.38 L (4.30-5.90) m/uL Hgb 7.5 L (13.0-17.5) gm/dL Hct 22.2 L (39.0-53.0) % Plt Count 15 L* D (150-450) k/uL Chloride 108 H (98-107) mmol/L BUN 5 L (9-20) mg/dL Creatinine 0.48 L (0.66-1.25) mg/dL Calcium 8.1 L (8.4-10.2) mg/dL Microbiology - Last 24 Hours (Table) 07/24/21 13:20 Anaerobic Culture - Final Fistula Anaerobic Gm Negative Bacilli 07/22/21 22:09 Blood Culture - Preliminary Blood No Growth after 96 hours 07/22/21 22:41 Blood Culture - Preliminary Blood No Growth after 96 hours Assessment and Plan (1) Neutropenic fever Narrative/Plan: Spoke with Dr. Barker at [facility]. Pt cycle started 07/07, and pt is currently 21 days out. Anticipate count recovery next week. Did get the OK to add a few days of GCSF to encourage recovery of WBC, started 07/25. Minimal dosing. WBC no change today Pt has had jaw imaging. He has been seen by Oral Surgeon with no acute interv ention felt needed. There is peridex ordered. Pt is on abx, DDS recommends monitoring and reviewed oral hygiene with pt. Pancultures pending, so far negative. Stool neg for c-diff. CT pelvis showed perineal fistula. Pt is on abx for that. Current Visit: Yes Status: Acute Priority: High Code(s): D70.9 - NEUTROPENIA, UNSPECIFIED; R50.81 - FEVER PRESENTING WITH CONDITIONS CLASSIFIED ELSEWHERE SNOMED Code(s): 375691602 (2) Pancytopenia due to antineoplastic chemotherapy Narrative/Plan: Irradiated blood products. Transfuse for Hgb 6.5 or less, Hgb today is 7.5. Transfuse for plt < 10,000 unless symptomatic, plt 15K today. GCSF cleared for minimal dosing to acutely improve WBC/ANC in setting of concern for acute infection, no change in WBC today. Current Visit: Yes Status: Acute Priority: High Code(s): D61.810 - ANTINEOPLASTIC CHEMOTHERAPY INDUCED PANCYTOPENIA; T45.1X5A - ADVERSE EFFECT OF ANTINEOPLASTIC AND IMMUNOSUP DRUGS, INIT SNOMED Code(s): 319443329400540 (3) Hypokalemia Narrative/Plan: On replacement protocol. K+ 4.2 today Current Visit: Yes Status: Acute Priority: Medium Code(s): E87.6 - HYPOKALEMIA SNOMED Code(s): 07741768 (4) Hypomagnesemia Narrative/Plan: On replacement protocol. Mag 1.8 today Current Visit: Yes Status: Acute Priority: Medium Code(s): E83.42 - HYPOMAGNESEMIA SNOMED Code(s): 886324609 Plan: Labs daily
--- NOTE | 2021-07-27 17:01 | P.GSCN ---
History of Present Illness Consult date: 07/27/21 Reason for Consult: Anal fistula History of present illness: This is a 21-year-old male with history of febrile neutropenia. Patient describes a several month history of a perianal fistula. He's had some drainage and pain in this area. Past Medical History Past Medical History: Asthma, Cancer, GERD/Reflux Additional Past Medical History / Comment(s): Bronchitis, perirectal abscess for 3 months and still current. ALL. finished 5th round of chemo recently History of Any Multi-Drug Resistant Organisms: None Reported Past Surgical History: Appendectomy Additional Past Surgical History / Comment(s): Dental procedures, EGD, Past Anesthesia/Blood Transfusion Reactions: No Reported Reaction, Family History of Problems w/ Anesthesia Additional Past Anesthesia/Blood Transfusion Reaction / Comm: Mother has PONV Past Psychological History: No Psychological Hx Reported Smoking Status: Never smoker Past Alcohol Use History: None Reported Past Drug Use History: None Reported - Past Family History Mother Family Medical History: CVA/TIA, Diabetes Mellitus, Hyperlipidemia, Hypertension Additional Family Medical History / Comment(s): TIA Father Family Medical History: CVA/TIA Additional Family Medical History / Comment(s): TIA Medications and Allergies Home Medications Medication Instructions Recorded Confirmed Type LORazepam [Ativan] 1 mg PO BID PRN 07/22/21 07/22/21 History clindamycin HCL [Cleocin] 300 mg PO Q8H 07/22/21 07/22/21 History Acyclovir 400 mg PO BID 07/23/21 07/23/21 History Dapsone 100 mg PO DAILY 07/23/21 07/23/21 History Furosemide [Lasix] 20 mg PO DAILY 07/23/21 07/23/21 History Losartan Potassium 100 mg PO DAILY 07/23/21 07/23/21 History OLANZapine [ZyPREXA] 5 mg PO HS 07/23/21 07/23/21 History Omeprazole [PriLOSEC] 10 mg PO DAILY 07/23/21 07/23/21 History Ondansetron Odt [Zofran Odt] 8 mg PO Q8H PRN 07/23/21 07/23/21 History Prochlorperazine [Compazine] 10 mg PO Q6H PRN 07/23/21 07/23/21 History Sertraline [Zoloft] 100 mg PO DAILY 07/23/21 07/23/21 History amLODIPine [Norvasc] 10 mg PO HS 07/23/21 07/23/21 History Allergies Allergy/AdvReac Type Severity Reaction Status Date / Time Sulfa (Sulfonamide Allergy Rash/Hives Verified 07/22/21 22:25 Antibiotics) Surgical - Exam Vital Signs Temp Pulse Resp BP Pulse Ox 103.8 F H 132 H 18 148/88 99 07/22/21 21:13 07/22/21 21:13 07/22/21 21:13 07/22/21 21:13 07/22/21 21:13 - General no distress - Eyes PERRL - ENT normal pinna - Neck no masses - Respiratory normal expansion - Cardiovascular Rhythm: regular - Abdomen Abdomen: soft, non tender - Rectum Left perianal fistula Results - Labs 07/27/21 06:45 07/27/21 06:45 Abnormal Lab Results - Last 24 Hours (Table) 07/27/21 07/27/21 Range/Units 06:45 06:45 WBC 0.4 L* (3.8-10.6) k/uL RBC 2.38 L (4.30-5.90) m/uL Hgb 7.5 L (13.0-17.5) gm/dL Hct 22.2 L (39.0-53.0) % Plt Count 15 L* D (150-450) k/uL Chloride 108 H (98-107) mmol/L BUN 5 L (9-20) mg/dL Creatinine 0.48 L (0.66-1.25) mg/dL Calcium 8.1 L (8.4-10.2) mg/dL Microbiology - Last 24 Hours (Table) 07/24/21 13:20 Anaerobic Culture - Final Fistula Anaerobic Gm Negative Bacilli 07/22/21 22:09 Blood Culture - Preliminary Blood No Growth after 96 hours 07/22/21 22:41 Blood Culture - Preliminary Blood No Growth after 96 hours Diabetes panel 07/27/21 Range/Units 06:45 Sodium 139 (137-145) mmol/L Potassium 4.2 (3.5-5.1) mmol/L Chloride 108 H (98-107) mmol/L Carbon Dioxide 27 (22-30) mmol/L BUN 5 L (9-20) mg/dL Creatinine 0.48 L (0.66-1.25) mg/dL Glucose 89 (74-99) mg/dL Calcium 8.1 L (8.4-10.2) mg/dL Calcium panel 07/27/21 Range/Units 06:45 Calcium 8.1 L (8.4-10.2) mg/dL Pituitary panel 07/27/21 Range/Units 06:45 Sodium 139 (137-145) mmol/L Potassium 4.2 (3.5-5.1) mmol/L Chloride 108 H (98-107) mmol/L Carbon Dioxide 27 (22-30) mmol/L BUN 5 L (9-20) mg/dL Creatinine 0.48 L (0.66-1.25) mg/dL Glucose 89 (74-99) mg/dL Calcium 8.1 L (8.4-10.2) mg/dL Adrenal panel 07/27/21 Range/Units 06:45 Sodium 139 (137-145) mmol/L Potassium 4.2 (3.5-5.1) mmol/L Chloride 108 H (98-107) mmol/L Carbon Dioxide 27 (22-30) mmol/L BUN 5 L (9-20) mg/dL Creatinine 0.48 L (0.66-1.25) mg/dL Glucose 89 (74-99) mg/dL Calcium 8.1 L (8.4-10.2) mg/dL Assessment and Plan Assessment: Neutropenia and thrombocytopenia Perianal fistula. Patient will be observed. Once he is medically stable we can consider exam under anesthesia and unroofing of the anal fistula.
[2021-07-27] MEDS: FILGRASTIM-SNDZ 480 MCG/0.8 ML SYRINGE SQ SCH (17:43)
--- NOTE | 2021-07-27 18:01 | P.PN ---
Subjective Progress Note Date: 07/27/21 Principal diagnosis: Febrile neutropenia and left lower joint infection Patient is a 21-year-old male with a past medical history significant for T-cell lymphoma for the patient is currently on chemotherapy last chemo was 2 weeks ago and also have extension of left lower jaw teeth presented to hospital with a fever and left lower jaw swelling, CT was negative for any abscess. Patient apparently did have a draining sinus between his rectum and scrotal area that has been there for 3 months did not mention it on the initial evaluation culture had been obtained from it on 07/24/2021 On today's evaluation that is 07/27/2021, the patient continues to be afebrile, the patientpain and swelling to the left lower jaw area has decreased in intensity, the patient denies any difficulty swallowing or chest pain shortness of breath or cough no abdominal pain or diarrhea Objective - Vital Signs Vital signs: Vital Signs Temp 98.7 F 07/27/21 11:10 Pulse 92 07/27/21 11:10 Resp 20 07/27/21 11:10 BP 135/68 07/27/21 11:10 Pulse Ox 98 07/27/21 11:10 Intake & Output 07/26/21 07/27/21 07/27/21 18:59 06:59 18:59 Intake Total 492 360 Balance 492 360 Weight 100.244 kg Intake: Oral 240 360 Blood Product 252 Platelet Pheresis Pas 252 Psoralen Unit [id number] Other: # Voids 1 2 # Bowel Movements 1 - Exam GENERAL DESCRIPTION: A middle-age male lying in bed in no distress HEENT: Left lower jaw swelling has decreased RESPIRATORY SYSTEM: Unlabored breathing , decreased breath sounds at bases HEART: S1 S2 regular rate and rhythm , ABDOMEN: Soft , no tenderness EXTREMITIES: No edema feet - Labs CBC & Chem 7: 07/27/21 06:45 07/27/21 06:45 Labs: Abnormal Lab Results - Last 24 Hours (Table) 07/27/21 07/27/21 Range/Units 06:45 06:45 WBC 0.4 L* (3.8-10.6) k/uL RBC 2.38 L (4.30-5.90) m/uL Hgb 7.5 L (13.0-17.5) gm/dL Hct 22.2 L (39.0-53.0) % Plt Count 15 L* D (150-450) k/uL Chloride 108 H (98-107) mmol/L BUN 5 L (9-20) mg/dL Creatinine 0.48 L (0.66-1.25) mg/dL Calcium 8.1 L (8.4-10.2) mg/dL Microbiology - Last 24 Hours (Table) 07/22/21 22:09 Blood Culture - Preliminary Blood No Growth after 96 hours 07/22/21 22:41 Blood Culture - Preliminary Blood No Growth after 96 hours 07/24/21 13:20 Gram Stain - Final Fistula Wound Culture - Final Escherichia coli Assessment and Plan (1) Neutropenic fever Current Visit: Yes Status: Acute Priority: High Code(s): D70.9 - NEUTROPENIA, UNSPECIFIED; R50.81 - FEVER PRESENTING WITH CONDITIONS CLASSIFIED ELSEWHERE SNOMED Code(s): 047778743 Plan: 1patient presented to hospital with a fever and this patient recently having a problem with an infected tooth and did have a swelling of the left side of the jaw with concern for possible oral source for this fever versus a PICC line infection that has been there for couple of months now. The patient blood culture had been negative that we make PICC line infection to be less likely patient now have a draining sinus between the scrotum and the rectum area and a question of possible fistula or perianal abscess 2 CT of the pelvis with contrast was reviewed with the radiologist Dr. Miles and there was no evidence of any pelvic abscess or fistula 3patient blood cultures negative however cultures obtained from the possible fistula is growing E. coli that is resistant to Zosyn and intermediate to Unasyn patient is currently being treated with Rocephin and Flagyl to continue and monitor clinical course closely Time with Patient: Less than 30
[2021-07-27] MEDS: amLODIPine 10 MG TAB PO SCH (21:05)
[2021-07-27] MEDS: OLANZapine 5 MG TAB PO SCH (21:05)
[2021-07-27] MEDS: SODIUM CHLORIDE 0.9% 1,000 ML IV SCH (21:08)
[2021-07-28 06:05] LABS: HCT 21.8 % (39.0-53.0); HGB 7.2 gm/dL (13.0-17.5); MCH 30.3 pg (25.0-35.0); MCV 91.8 fL (80.0-100.0); Mean Platelet Volume 7.5; RBC 2.37 m/uL (4.30-5.90); RDW 14.5 % (11.5-15.5)
[2021-07-28 06:11] LABS: Platelet Count 9 k/uL (150-450); WBC 0.5 k/uL (3.8-10.6)
[2021-07-28 06:16] LABS: African American GFR (CKD) >90 (>60 ml/min/1.73 sqM); Anion Gap 5 mmol/L; Blood Urea Nitrogen 7 mg/dL (9-20); Carbon Dioxide 26 mmol/L (22-30); Chloride 106 mmol/L (98-107); Glucose 94 mg/dL (74-99); Non-African American GFR(CKD) >90 (>60 ml/min/1.73 sqM); Potassium 3.9 mmol/L (3.5-5.1); Sodium 137 mmol/L (137-145)
[2021-07-28] MEDS: SODIUM CHLORIDE 0.9% 1,000 ML IV SCH ×2 (06:21→11:17)
[2021-07-28] MEDS: PANTOPRAZOLE 40 MG TABLET PO SCH (08:17)
[2021-07-28] MEDS: carvediloL 12.5 MG TAB PO SCH ×2 (08:17→16:37)
[2021-07-28] MEDS: ACYCLOVIR 200 MG CAP PO SCH ×2 (08:17→21:32)
[2021-07-28] MEDS: MAGNESIUM OXIDE 400 MG TAB PO SCH (08:17)
[2021-07-28] MEDS: CHLORHEXIDINE GLUCONATE 15 ML CUP MUCOUS MEM SCH ×4 (08:18→21:34)
[2021-07-28] MEDS: metroNIDAZOLE 500 MG TAB PO SCH ×3 (08:18→21:32)
[2021-07-28 08:34] LABS: Anisocytosis (M) Present
[2021-07-28] MEDS: FLUCONAZOLE 100 MG TAB PO SCH (09:54)
[2021-07-28 11:34] LABS: Magnesium 1.9 mg/dL (1.6-2.3)
[2021-07-28 13:19] LABS: Albumin/Globulin Ratio 1.4; Bilirubin,Unconjugated 0.4 mg/dL (0.0-1.1); Globulin 2.1 g/dL; Total Bilirubin 0.5 mg/dL (0.2-1.3); Total Protein 5.1 g/dL (6.3-8.2)
[2021-07-28 13:20] LABS: Partial Thromboplastin Time 24.4 sec (22.0-30.0); Prothrombin Time 10.6 sec (9.0-12.0)
--- NOTE | 2021-07-28 16:33 | P.PN ---
Subjective Progress Note Date: 07/28/21 Platelets 9K Transfuse one unit irradiated Objective - Vital Signs Vital signs: Vital Signs Temp 98.2 F 07/28/21 08:20 Pulse 78 07/28/21 08:20 Resp 18 07/28/21 08:20 BP 129/77 07/28/21 08:20 Pulse Ox 99 07/28/21 08:20 Intake & Output 07/27/21 07/28/21 07/28/21 18:59 06:59 18:59 Intake Total 1310 900 Balance 1310 900 Weight 100.244 kg Intake: IV 900 Sodium Chloride 0.9% 1, 900 000 ml @ 75 mls/hr IV . [id number] [facility] Rx#:[id number] Intake, IV Titration 950 Amount Magnesium Sulfate-D5w Pmx 100 1 gm In Dextrose/Water 1 100ml.bag @ 100 mls/hr IVPB ONCE ONE Rx#: [id number] Sodium Chloride 0.9% 1, 750 000 ml @ 75 mls/hr IV . [id number] [facility] Rx#:[id number] cefTRIAXone 2 gm In 100 Sodium Chloride 0.9% 50 ml @ 100 mls/hr IVPB Q24HR [facility] Rx#:[id number] Oral 360 Other: Voiding Method Toilet # Bowel Movements 1 - Exam - Constitutional Constitutional Comment(s): cushingoid appearance General appearance: Present: cooperative, no acute distress, obese - EENT Eyes: Present: anicteric sclerae, EOMI ENT: Present: hearing grossly normal, normal oropharynx - Respiratory Respiratory: bilateral: CTA - Cardiovascular Rhythm: regular Heart sounds: normal: S1, S2 Abnormal Heart Sounds: Absent: systolic murmur, diastolic murmur, rub, S3 Gallop, S4 Gallop, click, other - Peripheral edema leg Peripheral Edema: bilateral: Trace - Gastrointestinal General gastrointestinal: Present: normal bowel sounds, soft - Integumentary Integumentary: Present: pale - Neurologic Neurologic: Present: CNII-XII intact - Musculoskeletal Musculoskeletal: Present: strength equal bilaterally - Psychiatric Psychiatric: Present: A&O x's 3, appropriate affect, intact judgment & insight - Labs CBC & Chem 7: 07/28/21 05:47 07/28/21 05:47 Labs: Abnormal Lab Results - Last 24 Hours (Table) 07/27/21 07/28/2107/28/22 Range/Units 06:45 05:47 05:47 WBC 0.5 L* (3.8-10.6) k/uL RBC 2.37 L (4.30-5.90) m/uL Hgb 7.2 L (13.0-17.5) gm/dL Hct 21.8 L (39.0-53.0) % Plt Count 15 L* D 9 L* (150-450) k/uL BUN 7 L (9-20) mg/dL Creatinine 0.54 L (0.66-1.25) mg/dL Calcium 8.0 L (8.4-10.2) mg/dL Microbiology - Last 24 Hours (Table) 07/22/21 22:09 Blood Culture - Preliminary Blood No Growth after 120 hours 07/22/21 22:41 Blood Culture - Preliminary Blood No Growth after 120 hours 07/24/21 13:20 Anaerobic Culture - Final Fistula Anaerobic Gm Negative Bacilli Assessment and Plan Plan: Assessment and Plan (1) Neutropenic fever Narrative/Plan: Spoke with Dr. Barker at [facility]. Pt cycle started 07/07, and pt is currently 21 days out. Anticipate count recovery next week. Did get the OK to add a few days of GCSF to encourage recovery of WBC, started 07/25. Minimal dosing. WBC no change today Pt has had jaw imaging. He has been seen by Oral Surgeon with no acute intervention felt needed. There is peridex ordered. Pt is on abx, DDS recommends monitoring and reviewed oral hygiene with pt. Pancultures pending, so far negative. Stool neg for c-diff. CT pelvis showed perineal fistula. Pt is on abx for that. Current Visit: Yes Status: Acute Priority: High Code(s): D70.9 - NEUTROPENIA, UNSPECIFIED; R50.81 - FEVER PRESENTING WITH CONDITIONS CLASSIFIED ELSEWHERE SNOMED Code(s): 286603664 (2) Pancytopenia due to antineoplastic chemotherapy Narrative/Plan: Irradiated blood products. Transfuse for plt < 10,000 unless symptomatic, plt 9K today.Transfusion ordered GCSF cleared for minimal dosing to acutely improve WBC/ANC in setting of concern for acute infection, no change in WBC today. Prophylaxic anti-fungal Current Visit: Yes Status: Acute Priority: High Code(s): D61.810 - ANTINEOPLASTIC CHEMOTHERAPY INDUCED PANCYTOPENIA; T45.1X5A - ADVERSE EFFECT OF ANTINEOPLASTIC AND IMMUNOSUP DRUGS, INIT SNOMED Code(s): 913629892310393 (3) Hypokalemia Narrative/Plan: Current Visit: Yes Status: Acute Priority: Medium Code(s): E87.6 - HYPOKALEMIA SNOMED Code(s): 78140970 (4) Hypomagnesemia Narrative/Plan: Current Visit: Yes Status: Acute Priority: Medium Code(s): E83.42 - HYPOMAGNESEMIA SNOMED Code(s): 786896385 Plan: Monitor CMP and Coags as well as LFH, Uric, Mag, Phos and CBC please Add antifungal coverage, Posyconazole not available on formulary, Fluconazole ordered. Transfuse platelets today Doctor attests: I performed a history and physical examination of this patient, developed impression and plan of care. Discussed with dictator. I agree with dictators note, documented as a scribe.
--- NOTE | 2021-07-28 16:36 | P.PN ---
Subjective Progress Note Date: 07/28/21 CHIEF COMPLAINT: Anal fistula HISTORY OF PRESENT ILLNESS: Patient is at the hospital with febrile neutropenia. 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 Currently patient reports no drainage from the fistula. He is still pancytopenic. Afebrile. Tolerating regular diet. Denies any pain. Patient seen and examined with Dr. Manley PHYSICAL EXAM: VITAL SIGNS: Reviewed. GENERAL: Well-developed in no acute distress. HEENT: No sclera icterus. Extraocular movements grossly intact. Moist buccal mucosa. Head is atraumatic, normocephalic. ABDOMEN: Soft. Nondistended. Nontender. NEUROLOGIC: Alert and oriented. Cranial nerves II through XII grossly intact. ASSESSMENT: 1. Perianal fistula 2. Pancytopenic 3. Neutropenic fever 4. History of ALL PLAN: -Continue to observe patient. Patient will require surgical intervention for perianal fistula when stable Physician Criminal Justice Professor note has been reviewed by physician. Signing provider agrees with the documented findings, assessment, and plan of care. Objective - Vital Signs Vital signs: Vital Signs Temp 99.3 F 07/28/21 10:55 Pulse 87 07/28/21 10:55 Resp 18 07/28/21 10:55 BP 117/76 07/28/21 10:55 Pulse Ox 98 07/28/21 10:55 Intake & Output 07/27/21 07/28/21 07/28/21 18:59 06:59 18:59 Intake Total 1310 900 344 Balance 1310 900 344 Weight 100.244 kg Intake: IV 900 Sodium Chloride 0.9% 1, 900 000 ml @ 75 mls/hr IV . [id number] [facility] Rx#:[id number] Intake, IV Titration 950 Amount Magnesium Sulfate-D5w Pmx 100 1 gm In Dextrose/Water 1 100ml.bag @ 100 mls/hr IVPB ONCE ONE Rx#: [id number] Sodium Chloride 0.9% 1, 750 000 ml @ 75 mls/hr IV . [id number] [facility] Rx#:[id number] cefTRIAXone 2 gm In 100 Sodium Chloride 0.9% 50 ml @ 100 mls/hr IVPB Q24HR [facility] Rx#:[id number] Oral 360 Blood Product 344 Platelet Pheresis Pas 344 Psoralen Unit [id number] Other: Voiding Method Toilet # Bowel Movements 1 - Labs CBC & Chem 7: 07/28/21 05:47 07/28/21 05:47 Labs: Abnormal Lab Results - Last 24 Hours (Table) 07/28/21 07/28/21 07/28/21 Range/Units 05:47 05:47 12:50 WBC 0.5 L* (3.8-10.6) k/uL RBC 2.37 L (4.30-5.90) m/uL Hgb 7.2 L (13.0-17.5) gm/dL Hct 21.8 L (39.0-53.0) % Plt Count 9 L* (150-450) k/uL BUN 7 L (9-20) mg/dL Creatinine 0.54 L (0.66-1.25) mg/dL Calcium 8.0 L (8.4-10.2) mg/dL AST 14 L (17-59) U/L Total Protein 5.1 L (6.3-8.2) g/dL Albumin 3.0 L (3.5-5.0) g/dL Microbiology - Last 24 Hours (Table) 07/24/21 13:20 Anaerobic Culture - Final Fistula Anaerobic Gm Negative Bacilli Clostridium sp not perfringens 07/22/21 22:09 Blood Culture - Preliminary Blood No Growth after 120 hours 07/22/21 22:41 Blood Culture - Preliminary Blood No Growth after 120 hours
[2021-07-28] MEDS: FILGRASTIM-SNDZ 480 MCG/0.8 ML SYRINGE SQ SCH (18:09)
[2021-07-28] MEDS: ACETAMINOPHEN TAB 325 MG TAB PO PRN (21:33)
[2021-07-28] MEDS: amLODIPine 10 MG TAB PO SCH (21:33)
[2021-07-28] MEDS: OLANZapine 5 MG TAB PO SCH (21:42)
--- NOTE | 2021-07-29 00:01 | P.PN ---
Subjective Progress Note Date: 07/28/21 Principal diagnosis: Febrile neutropenia and left lower joint infection Patient is a 21-year-old male with a past medical history significant for T-cell lymphoma for the patient is currently on chemotherapy last chemo was 2 weeks ago and also have extension of left lower jaw teeth presented to hospital with a fever and left lower jaw swelling, CT was negative for any abscess. Patient apparently did have a draining sinus between his rectum and scrotal area that has been there for 3 months did not mention it on the initial evaluation culture had been obtained from it on 07/24/2021 On today's evaluation that is 07/28/2021, the patient is afebrile, the patient pain and swelling to the left lower jaw area has slightly decreased in intensity, the patient denies any difficulty swallowing or breathing, the patient denies chest pain shortness of breath or cough no abdominal pain or diarrhea Objective - Vital Signs Vital signs: Vital Signs Temp 99.3 F 07/28/21 10:55 Pulse 87 07/28/21 10:55 Resp 18 07/28/21 10:55 BP 117/76 07/28/21 10:55 Pulse Ox 98 07/28/21 10:55 Intake & Output 07/27/21 07/28/21 07/28/21 18:59 06:59 18:59 Intake Total 1310 900 344 Balance 1310 900 344 Weight 100.244 kg Intake: IV 900 Sodium Chloride 0.9% 1, 900 000 ml @ 75 mls/hr IV . [id number] [facility] Rx#:[id number] Intake, IV Titration 950 Amount Magnesium Sulfate-D5w Pmx 100 1 gm In Dextrose/Water 1 100ml.bag @ 100 mls/hr IVPB ONCE ONE Rx#: [id number] Sodium Chloride 0.9% 1, 750 000 ml @ 75 mls/hr IV . [id number] [facility] Rx#:[id number] cefTRIAXone 2 gm In 100 Sodium Chloride 0.9% 50 ml @ 100 mls/hr IVPB Q24HR [facility] Rx#:[id number] Oral 360 Blood Product 344 Platelet Pheresis Pas 344 Psoralen Unit [id number] Other: Voiding Method Toilet # Bowel Movements 1 - Exam GENERAL DESCRIPTION: A middle-age male lying in bed in no distress HEENT: Left lower jaw swelling has decreased RESPIRATORY SYSTEM: Unlabored breathing , decreased breath sounds at bases HEART: S1 S2 regular rate and rhythm , ABDOMEN: Soft , no tenderness EXTREMITIES: No edema feet - Labs CBC & Chem 7: 07/28/21 05:47 07/28/21 05:47 Labs: Abnormal Lab Results - Last 24 Hours (Table) 07/28/21 07/28/21 07/28/21 Range/Units 05:47 05:47 12:50 WBC 0.5 L* (3.8-10.6) k/uL RBC 2.37 L (4.30-5.90) m/uL Hgb 7.2 L (13.0-17.5) gm/dL Hct 21.8 L (39.0-53.0) % Plt Count 9 L* (150-450) k/uL BUN 7 L (9-20) mg/dL Creatinine 0.54 L (0.66-1.25) mg/dL Calcium 8.0 L (8.4-10.2) mg/dL AST 14 L (17-59) U/L Total Protein 5.1 L (6.3-8.2) g/dL Albumin 3.0 L (3.5-5.0) g/dL Microbiology - Last 24 Hours (Table) 07/22/21 22:09 Blood Culture - Preliminary Blood No Growth after 120 hours 07/22/21 22:41 Blood Culture - Preliminary Blood No Growth after 120 hours 07/24/21 13:20 Anaerobic Culture - Final Fistula Anaerobic Gm Negative Bacilli Assessment and Plan (1) Neutropenic fever Current Visit: Yes Status: Acute Priority: High Code(s): D70.9 - NEUTROPENIA, UNSPECIFIED; R50.81 - FEVER PRESENTING WITH CONDITIONS CLASSIFIED ELSEWHERE SNOMED Code(s): 662764826 Plan: 1patient presented to hospital with a fever and this patient recently having a problem with an infected tooth and did have a swelling of the left side of the jaw with concern for possible oral source for this fever versus a PICC line infection that has been there for couple of months now. The patient blood culture had been negative that we make PICC line infection to be less likely patient now have a draining sinus between the scrotum and the rectum area and a question of possible fistula or perianal abscess 2 CT of the pelvis with contrast was reviewed with the radiologist Dr. Miles and there was no evidence of any pelvic abscess or fistula 3patient blood cultures negative however cultures obtained from the possible fistula is growing E. coli that is resistant to Zosyn and intermediate to Unasyn patient to continue with Rocephin and Flagyl to continue and possible plan to finish therapy with oral antibiotics Time with Patient: Less than 30
[2021-07-29 05:54] LABS: HCT 21.8 % (39.0-53.0); HGB 7.2 gm/dL (13.0-17.5); MCH 30.3 pg (25.0-35.0); MCHC 32.8 g/dL (31.0-37.0); MCV 92.3 fL (80.0-100.0); Mean Platelet Volume 11.1; RBC 2.37 m/uL (4.30-5.90); RDW 15.1 % (11.5-15.5)
[2021-07-29 05:55] LABS: ALT 15 U/L (4-49); AST 17 U/L (17-59); African American GFR (CKD) >90 (>60 ml/min/1.73 sqM); Albumin 2.9 g/dL (3.5-5.0); Albumin/Globulin Ratio 1.4; Alkaline Phosphatase 48 U/L (38-126); Anion Gap 6 mmol/L; Blood Urea Nitrogen 8 mg/dL (9-20); Calcium 8.3 mg/dL (8.4-10.2); Carbon Dioxide 29 mmol/L (22-30); Chloride 104 mmol/L (98-107); Globulin 2.1 g/dL; Glucose 88 mg/dL (74-99); LDH 406 U/L (313-618); Magnesium 1.8 mg/dL (1.6-2.3); Non-African American GFR(CKD) >90 (>60 ml/min/1.73 sqM); Potassium 3.9 mmol/L (3.5-5.1); Sodium 139 mmol/L (137-145); Total Bilirubin 0.6 mg/dL (0.2-1.3); Uric Acid 3.6 mg/dL (3.5-8.5)
[2021-07-29] MEDS ORDERED: POTASSIUM CHLORIDE ER 20 MEQ TAB.ER PO SCH (06:00)
[2021-07-29 06:18] LABS: Platelet Count 19 k/uL (150-450); WBC 0.7 k/uL (3.8-10.6)
[2021-07-29] MEDS: SODIUM CHLORIDE 0.9% 1,000 ML IV SCH ×2 (06:26→13:55)
[2021-07-29] MEDS: ACYCLOVIR 200 MG CAP PO SCH ×2 (08:04→20:46)
[2021-07-29] MEDS: carvediloL 12.5 MG TAB PO SCH ×2 (08:04→17:31)
[2021-07-29] MEDS: MAGNESIUM OXIDE 400 MG TAB PO SCH (08:05)
[2021-07-29] MEDS: CHLORHEXIDINE GLUCONATE 15 ML CUP MUCOUS MEM SCH ×4 (08:05→20:46)
[2021-07-29] MEDS: metroNIDAZOLE 500 MG TAB PO SCH ×3 (08:05→20:46)
[2021-07-29] MEDS: FLUCONAZOLE 100 MG TAB PO SCH (08:05)
[2021-07-29] MEDS: PANTOPRAZOLE 40 MG TABLET PO SCH (08:05)
--- NOTE | 2021-07-29 13:05 | P.PN ---
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 Patient appears to have dental infection involving both the lower molars. Patient was given kanamycin by PCP. Patient is presently actively receiving chemotherapy. Patient denied any cough chest x-ray did not show any pneumonia or any dysuria or increased urinary frequency urinalysis is not significant. Patient was started on cefepime was subsequently admitted. Patient is severely pancytopenic with a platelet count of around 2000 and severely anemic secondary to chemotherapy. Objective - Vital Signs Vital signs: Vital Signs Temp 99.3 F 07/28/21 10:55 Pulse 87 07/28/21 10:55 Resp 18 07/28/21 10:55 BP 117/76 07/28/21 10:55 Pulse Ox 98 07/28/21 10:55 Intake & Output 07/27/21 07/28/21 07/28/21 18:59 06:59 18:59 Intake Total 1310 900 344 Balance 1310 900 344 Weight 100.244 kg Intake: IV 900 Sodium Chloride 0.9% 1, 900 000 ml @ 75 mls/hr IV . [id number] [facility] Rx#:[id number] Intake, IV Titration 950 Amount Magnesium Sulfate-D5w Pmx 100 1 gm In Dextrose/Water 1 100ml.bag @ 100 mls/hr IVPB ONCE ONE Rx#: [id number] Sodium Chloride 0.9% 1, 750 000 ml @ 75 mls/hr IV . [id number] [facility] Rx#:[id number] cefTRIAXone 2 gm In 100 Sodium Chloride 0.9% 50 ml @ 100 mls/hr IVPB Q24HR [facility] Rx#:[id number] Oral 360 Blood Product 344 Platelet Pheresis Pas 344 Psoralen Unit [id number] Other: Voiding Method Toilet # Bowel Movements 1 - Exam GENERAL: The patient is alert and oriented x3, not in any acute distress. Well developed, well nourished. HEENT: Pupils are round and equally reacting to light. EOMI. No scleral icterus. No conjunctival pallor. Normocephalic, atraumatic. No pharyngeal erythema. No thyromegaly. Face is significantly swollen patient does have a swelling in the jaw with some swelling near the first and second lower molar area bilaterally, improved slightly. CARDIOVASCULAR: S1 and S2 present. No murmurs, rubs, or gallops. PULMONARY: Chest is clear to auscultation, no wheezing or crackles. ABDOMEN: Soft, nontender, nondistended, normoactive bowel sounds. No palpable organomegaly. MUSCULOSKELETAL: No joint swelling or deformity. EXTREMITIES: No cyanosis, clubbing, or pedal edema. NEUROLOGICAL: Gross neurological examination did not reveal any focal deficits. SKIN: No rashes. - Labs CBC & Chem 7: 07/29/21 05:25 07/29/21 05:25 Labs: Abnormal Lab Results - Last 24 Hours (Table) 07/28/21 07/28/21 Range/Units 05:47 05:47 WBC 0.5 L* (3.8-10.6) k/uL RBC 2.37 L (4.30-5.90) m/uL Hgb 7.2 L (13.0-17.5) gm/dL Hct 21.8 L (39.0-53.0) % Plt Count 9 L* (150-450) k/uL BUN 7 L (9-20) mg/dL Creatinine 0.54 L (0.66-1.25) mg/dL Calcium 8.0 L (8.4-10.2) mg/dL Microbiology - Last 24 Hours (Table) 07/22/21 22:09 Blood Culture - Preliminary Blood No Growth after 120 hours 07/22/21 22:41 Blood Culture - Preliminary Blood No Growth after 120 hours 07/24/21 13:20 Anaerobic Culture - Final Fistula Anaerobic Gm Negative Bacilli Assessment and Plan Assessment: 1 febrile neutropenia, possible sepsis: Secondary to dental infection rash cellulitis in the maxillary area is improving, also with a perineal fistula w hich fistula cultures are showing e. coli with drug resistance. ID following closely. -Severe pancytopenia: Secondary to chemotherapy, oncology is following patient, hgb today 7.5 s/p blood transfusion, platelet count 15 today s/p transfusion. 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 -Elevated troponins likely secondary to sepsis, no chest pain, EKG unremarkable. -Gastroesophageal reflux disease -Depression DVT prophylaxis: defferred DVT prophylaxis because of severe thrombocytopenia GI Prophylaxis: Protonix
--- NOTE | 2021-07-29 15:07 | P.PN ---
Subjective Progress Note Date: 07/29/21 CHIEF COMPLAINT: Anal fistula HISTORY OF PRESENT ILLNESS: Patient is at the hospital with febrile neutropenia. 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 Currently patient reports no drainage from the fistula. He is still pancytopenic. Afebrile. Tolerating regular diet. Denies any pain. WBCs 0.7 hemoglobin 7.2 and platelets 19 Patient seen and examined with Dr. Manley PHYSICAL EXAM: VITAL SIGNS: Reviewed. GENERAL: Well-developed in no acute distress. HEENT: No sclera icterus. Extraocular movements grossly intact. Moist buccal mucosa. Head is atraumatic, normocephalic. ABDOMEN: Soft. Nondistended. Nontender. NEUROLOGIC: Alert and oriented. Cranial nerves II through XII grossly intact. ASSESSMENT: 1. Perianal fistula 2. Pancytopenic 3. Neutropenic fever 4. History of ALL PLAN: -Continue to observe patient. Patient will require surgical intervention for perianal fistula when medically stable and pancytopenia improves Physician Producer note has been reviewed by physician. Signing provider agrees with the documented findings, assessment, and plan of care. Objective - Vital Signs Vital signs: Vital Signs Temp 99.9 F H 07/29/21 12:45 Pulse 81 07/29/21 12:45 Resp 18 07/29/21 12:45 BP 137/82 07/29/21 12:45 Pulse Ox 97 07/29/21 12:45 Intake & Output 07/28/21 07/29/21 07/29/21 18:59 06:59 18:59 Intake Total 344 100 118 Balance 344 100 118 Weight 100.244 kg Intake: Oral 100 118 Blood Product 344 Platelet Pheresis Pas 344 Psoralen Unit [id number] Other: Voiding Method Toilet # Voids 4 2 # Bowel Movements 1 1 - Labs CBC & Chem 7: 07/29/21 05:25 07/29/21 05:25 Labs: Abnormal Lab Results - Last 24 Hours (Table) 07/29/21 07/29/21 Range/Units 05:25 05:25 WBC 0.7 L* (3.8-10.6) k/uL RBC 2.37 L (4.30-5.90) m/uL Hgb 7.2 L (13.0-17.5) gm/dL Hct 21.8 L (39.0-53.0) % Plt Count 19 L* D (150-450) k/uL BUN 8 L (9-20) mg/dL Creatinine 0.56 L (0.66-1.25) mg/dL Calcium 8.3 L (8.4-10.2) mg/dL Total Protein 5.0 L (6.3-8.2) g/dL Albumin 2.9 L (3.5-5.0) g/dL Microbiology - Last 24 Hours (Table) 07/28/21 12:50 Blood Culture - Preliminary Blood No Growth after 24 hours 07/22/21 22:09 Blood Culture - Final Blood No Growth after 144 hours 07/22/21 22:41 Blood Culture - Final Blood No Growth after 144 hours 07/24/21 13:20 Anaerobic Culture - Final Fistula Anaerobic Gm Negative Bacilli Clostridium sp not perfringens
[2021-07-29] MEDS: FILGRASTIM-SNDZ 480 MCG/0.8 ML SYRINGE SQ SCH (17:31)
--- NOTE | 2021-07-29 18:46 | P.PN ---
Subjective Progress Note Date: 07/29/21 Principal diagnosis: ALL with Neutropenic Fever T max 100.2, Improved CBC also improving Objective - Vital Signs Vital signs: Vital Signs Temp 99.9 F H 07/29/21 12:45 Pulse 81 07/29/21 12:45 Resp 18 07/29/21 12:45 BP 137/82 07/29/21 12:45 Pulse Ox 97 07/29/21 12:45 Intake & Output 07/28/21 07/29/21 07/29/21 18:59 06:59 18:59 Intake Total 344 100 Balance 344 100 Weight 100.244 kg Intake: Oral 100 Blood Product 344 Platelet Pheresis Pas 344 Psoralen Unit [id number] Other: Voiding Method Toilet # Voids 4 2 # Bowel Movements 1 1 - Exam - Constitutional Constitutional Comment(s): cushingoid appearance General appearance: Present: cooperative, no acute distress, obese - EENT Eyes: Present: anicteric sclerae, EOMI ENT: Present: hearing grossly normal, normal oropharynx - Respiratory Respiratory: bilateral: CTA - Cardiovascular Rhythm: regular Heart sounds: normal: S1, S2 Abnormal Heart Sounds: Absent: systolic murmur, diastolic murmur, rub, S3 Gallop, S4 Gallop, click, other - Peripheral edema leg Peripheral Edema: bilateral: Trace - Gastrointestinal General gastrointestinal: Present: normal bowel sounds, soft - Integumentary Integumentary: Present: pale - Neurologic Neurologic: Present: CNII-XII intact - Musculoskeletal Musculoskeletal: Present: strength equal bilaterally - Psychiatric Psychiatric: Present: A&O x's 3, appropriate affect, intact judgment & insight - Labs CBC & Chem 7: 07/29/21 05:25 07/29/21 05:25 Labs: Abnormal Lab Results - Last 24 Hours (Table) 07/29/21 07/29/21 Range/Units 05:25 05:25 WBC 0.7 L* (3.8-10.6) k/uL RBC 2.37 L (4.30-5.90) m/uL Hgb 7.2 L (13.0-17.5) gm/dL Hct 21.8 L (39.0-53.0) % Plt Count 19 L* D (150-450) k/uL BUN 8 L (9-20) mg/dL Creatinine 0.56 L (0.66-1.25) mg/dL Calcium 8.3 L (8.4-10.2) mg/dL Total Protein 5.0 L (6.3-8.2) g/dL Albumin 2.9 L (3.5-5.0) g/dL Microbiology - Last 24 Hours (Table) 07/22/21 22:09 Blood Culture - Final Blood No Growth after 144 hours 07/22/21 22:41 Blood Culture - Final Blood No Growth after 144 hours 07/24/21 13:20 Anaerobic Culture - Final Fistula Anaerobic Gm Negative Bacilli Clostridium sp not perfringens Assessment and Plan Plan: Assessment and Plan (1) Neutropenic fever Narrative/Plan: Spoke with Dr. Barker at [facility]. Pt cycle started 07/07, and pt is currently [address] of the pelvis with contrast was reviewed with the radiologist Dr. Miles and there was no evidence of any pelvic abscess or fistula Blood Cultures negative however cultures obtained from the possible fistula is growing E. coli that is resistant to Zosyn and intermediate to Unasyn patient to continue with Rocephin and Flagyl to continue and possible plan to finish therapy with oral antibiotics Continue Prophylaxic Diflucan, acyclovir and continue growth factor T Max today 100.2 Time with Patient: Less than 30. Current Visit: Yes Status: Acute Priority: High Code(s): D70.9 - NEUTROPENIA, UNSPECIFIED; R50.81 - FEVER PRESENTING WITH CONDITIONS CLASSIFIED ELSEWHERE SNOMED Code(s): 226874122 (2) Pancytopenia due to antineoplastic chemotherapy Narrative/Plan: Irradiated blood products. Transfuse for plt < 10,000 unless symptomatic,no transfusion required today Current Visit: Yes Status: Acute Priority: High Code(s): D61.810 - ANTINEOPLASTIC CHEMOTHERAPY INDUCED PANCYTOPENIA; T45.1X5A - ADVERSE EFFECT OF ANTINEOPLASTIC AND IMMUNOSUP DRUGS, INIT SNOMED Code(s): 171564284100515 (3) Hypokalemia Narrative/Plan: Current Visit: Yes Status: Acute Priority: Medium Code(s): E87.6 - HYPOKALEMIA SNOMED Code(s): 74981516 (4) Hypomagnesemia Narrative/Plan: Current Visit: Yes Status: Acute Priority: Medium Code(s): E83.42 - HYPOMAGNESEMIA SNOMED Code(s): 937732150 Plan: Monitor CMP and CBC Overall improving Hoping Discharge soon Doctor attests: I performed a history and physical examination of this patient, developed impression and plan of care. Discussed with dictator. I agree with dictators note, documented as a scribe.
[2021-07-29] MEDS: amLODIPine 10 MG TAB PO SCH (20:46)
[2021-07-29] MEDS: OLANZapine 5 MG TAB PO SCH (20:46)
--- NOTE | 2021-07-29 23:37 | P.PN ---
Subjective Progress Note Date: 07/29/21 Principal diagnosis: Febrile neutropenia and left lower joint infection Patient is a 21-year-old male with a past medical history significant for T-cell lymphoma for the patient is currently on chemotherapy last chemo was 2 weeks ago and also have extension of left lower jaw teeth presented to hospital with a fever and left lower jaw swelling, CT was negative for any abscess. Patient apparently did have a draining sinus between his rectum and scrotal area that has been there for 3 months did not mention it on the initial evaluation culture had been obtained from it on 07/24/2021 On today's evaluation that is 07/29/2021, the patient has been running a low- grade fever over the last 24 hour, the patient denies any worsening pain and swelling to the left lower jaw area, the patient denies any difficulty swallowing or breathing, the patient denies chest pain shortness of breath or cough no abdominal pain or diarrhea Objective - Vital Signs Vital signs: Vital Signs Temp 99.9 F H 07/29/21 12:45 Pulse 81 07/29/21 12:45 Resp 18 07/29/21 12:45 BP 137/82 07/29/21 12:45 Pulse Ox 97 07/29/21 12:45 Intake & Output 07/28/21 07/29/21 07/29/21 18:59 06:59 18:59 Intake Total 344 100 Balance 344 100 Weight 100.244 kg Intake: Oral 100 Blood Product 344 Platelet Pheresis Pas 344 Psoralen Unit [id number] Other: Voiding Method Toilet # Voids 4 2 # Bowel Movements 1 1 - Exam GENERAL DESCRIPTION: A middle-age male lying in bed in no distress HEENT: Left lower jaw swelling has decreased RESPIRATORY SYSTEM: Unlabored breathing , decreased breath sounds at bases HEART: S1 S2 regular rate and rhythm , ABDOMEN: Soft , no tenderness EXTREMITIES: No edema feet - Labs CBC & Chem 7: 07/29/21 05:25 07/29/21 05:25 Labs: Abnormal Lab Results - Last 24 Hours (Table) 07/28/21 07/29/21 07/29/21 Range/Units 12:50 05:25 05:25 WBC 0.7 L* (3.8-10.6) k/uL RBC 2.37 L (4.30-5.90) m/uL Hgb 7.2 L (13.0-17.5) gm/dL Hct 21.8 L (39.0-53.0) % Plt Count 19 L* D (150-450) k/uL BUN 8 L (9-20) mg/dL Creatinine 0.56 L (0.66-1.25) mg/dL Calcium 8.3 L (8.4-10.2) mg/dL AST 14 L (17-59) U/L Total Protein 5.1 L 5.0 L (6.3-8.2) g/dL Albumin 3.0 L 2.9 L (3.5-5.0) g/dL Microbiology - Last 24 Hours (Table) 07/22/21 22:09 Blood Culture - Final Blood No Growth after 144 hours 07/22/21 22:41 Blood Culture - Final Blood No Growth after 144 hours 07/24/21 13:20 Anaerobic Culture - Final Fistula Anaerobic Gm Negative Bacilli Clostridium sp not perfringens Assessment and Plan (1) Neutropenic fever Current Visit: Yes Status: Acute Priority: High Code(s): D70.9 - NEUTROPENIA, UNSPECIFIED; R50.81 - FEVER PRESENTING WITH CONDITIONS CLASSIFIED ELSEWHERE SNOMED Code(s): 963030343 Plan: 1patient presented to hospital with a fever and this patient recently having a problem with an infected tooth and did have a swelling of the left side of the jaw with concern for possible oral source for this fever versus a PICC line infection that has been there for couple of months now. The patient blood culture had been negative that we make PICC line infection to be less likely patient now have a draining sinus between the scrotum and the rectum area and a question of possible fistula or perianal abscess 2 CT of the pelvis with contrast was reviewed with the radiologist Dr. Miles and there was no evidence of any pelvic abscess or fistula 3patient blood cultures negative however cultures obtained from the possible fistula is growing E. coli that is resistant to Zosyn and intermediate to Unasyn patient has been running a low-grade fever after his anybody has been switched over to Rocephin and Flagyl and the patient previously did well on Unasyn more directly towards his left lower jaw, with no evidence of any abscess on the CT and the pelvic area we will switch him back to Unasyn 3 g every 6 hours and follow up on the repeat culture Time with Patient: Less than 30
[2021-07-30] MEDS: AMPICILLIN-SULBACTAM 3 GM in SODIUM CHLORIDE 0.9% 100 ML IVPB SCH ×5 (00:36→23:54)
[2021-07-30] MEDS: SODIUM CHLORIDE 0.9% 1,000 ML IV SCH ×2 (03:09→17:35)
[2021-07-30 06:17] LABS: HCT 21.6 % (39.0-53.0); HGB 7.3 gm/dL (13.0-17.5); MCH 31.5 pg (25.0-35.0); MCHC 33.9 g/dL (31.0-37.0); Mean Platelet Volume 7.2; RBC 2.32 m/uL (4.30-5.90)
[2021-07-30 06:30] LABS: Platelet Count 9 k/uL (150-450); WBC 0.8 k/uL (3.8-10.6)
[2021-07-30 07:10] LABS: Anisocytosis (M) Present
[2021-07-30] MEDS: ACYCLOVIR 200 MG CAP PO SCH ×2 (08:46→21:33)
[2021-07-30] MEDS: MAGNESIUM OXIDE 400 MG TAB PO SCH (08:46)
[2021-07-30] MEDS: carvediloL 12.5 MG TAB PO SCH ×2 (08:46→17:34)
[2021-07-30] MEDS: FLUCONAZOLE 100 MG TAB PO SCH (08:46)
[2021-07-30] MEDS: PANTOPRAZOLE 40 MG TABLET PO SCH (08:46)
[2021-07-30] MEDS: CHLORHEXIDINE GLUCONATE 15 ML CUP MUCOUS MEM SCH ×4 (08:47→21:35)
[2021-07-30 08:58] LABS: African American GFR (CKD) 166.6 (60.0-200.0); Albumin 3.4 g/dL (3.8-4.9); Albumin/Globulin Ratio 2.27 (1.60-3.17); Anion Gap 10.2 mmol/L (10.00-18.00); Blood Urea Nitrogen 6.6 mg/dL (9.0-27.0); C Reactive Protein 8.5 mg/dL (0.00-0.80); Calcium 8.5 mg/dL (8.7-10.3); Carbon Dioxide 24.8 mmol/L (20.0-27.5); Globulin 1.5 g/dL (1.6-3.3); Non-African American GFR(CKD) 143.7 (60.0-200.0); Potassium 3.9 mmol/L (3.5-5.5); Total Bilirubin 0.2 mg/dL (0.30-1.20); Total Protein 4.9 g/dL (6.2-8.2)
--- NOTE | 2021-07-30 09:18 | P.PN ---
Subjective Progress Note Date: 07/30/21 Principal diagnosis: Anal fistula Patient doing well today. Using the restroom at this time. Says he has no significant perirectal pain at this time. T-max 100.3. Objective - Vital Signs Vital signs: Vital Signs Temp 99.5 F 07/30/21 05:00 Pulse 108 H 07/30/21 05:00 Resp 20 07/30/21 05:00 BP 114/60 07/30/21 05:00 Pulse Ox 98 07/30/21 05:00 Intake & Output 07/29/21 07/30/21 07/30/21 18:59 06:59 18:59 Intake Total 118 725 Balance 118 725 Weight 100.244 kg Intake: IV 525 Sodium Chloride 0.9% 1, 525 000 ml @ 75 mls/hr IV . [id number] [facility] Rx#:[id number] Intake, IV Titration 200 Amount Ampicillin-Sulbactam 3 gm 200 In Sodium Chloride 0.9% 100 ml @ 200 mls/hr IVPB Q6HR [facility] Rx#:[id number] Oral 118 Other: Voiding Method Toilet # Voids 6 # Bowel Movements 1 - Exam Abdomen: Soft, nontender, nondistended - Labs CBC & Chem 7: 07/30/21 06:00 07/30/21 06:00 Labs: Abnormal Lab Results - Last 24 Hours (Table) 07/30/21 07/30/21 Range/Units 06:00 06:00 WBC 0.8 L* (3.8-10.6) k/uL RBC 2.32 L (4.30-5.90) m/uL Hgb 7.3 L (13.0-17.5) gm/dL Hct 21.6 L (39.0-53.0) % Plt Count 9 L* D (150-450) k/uL BUN 6.6 L (9.0-27.0) mg/dL BUN/Creatinine Ratio 11.00 L (12.00-20.00) Ratio Calcium 8.5 L (8.7-10.3) mg/dL Total Bilirubin 0.20 L (0.30-1.20) mg/dL AST 12 L (14-35) U/L C-Reactive Protein 8.50 H (0.00-0.80) mg/dL Total Protein 4.9 L (6.2-8.2) g/dL Albumin 3.4 L (3.8-4.9) g/dL Globulin 1.5 L (1.6-3.3) g/dL Microbiology - Last 24 Hours (Table) 07/28/21 16:14 Blood Culture - Preliminary Blood No Growth after 24 hours 07/28/21 12:50 Blood Culture - Preliminary Blood No Growth after 24 hours Assessment and Plan (1) Perianal pain Narrative/Plan: 21-year-old male with suspected perianal fistula. Patient did have a low-grade fever last night. Continue antibiotics and supportive care. We'll follow. Current Visit: No Status: Acute Code(s): K62.89 - OTHER SPECIFIED DISEASES OF ANUS AND RECTUM SNOMED Code(s): 903532523
--- NOTE | 2021-07-30 16:26 | P.PN ---
Subjective Progress Note Date: 07/30/21 Principal diagnosis: Febrile neutropenia and left lower joint infection Patient is a 21-year-old male with a past medical history significant for T-cell lymphoma for the patient is currently on chemotherapy last chemo was 2 weeks ago and also have extension of left lower jaw teeth presented to hospital with a fever and left lower jaw swelling, CT was negative for any abscess. Patient apparently did have a draining sinus between his rectum and scrotal area that has been there for 3 months did not mention it on the initial evaluation culture had been obtained from it on 07/24/2021 On today's evaluation that is 07/30/2021, the patient is afebrile this morning, the patient pain and swelling to the left lower jaw area is slightly decreased, the patient denies any difficulty swallowing or breathing, the patient denies chest pain shortness of breath or cough no abdominal pain or diarrhea Objective - Vital Signs Vital signs: Vital Signs Temp 99.5 F 07/30/21 05:00 Pulse 108 H 07/30/21 05:00 Resp 20 07/30/21 05:00 BP 114/60 07/30/21 05:00 Pulse Ox 98 07/30/21 05:00 Intake & Output 07/29/21 07/30/21 07/30/21 18:59 06:59 18:59 Intake Total 118 725 Balance 118 725 Weight 100.244 kg Intake: IV 525 Sodium Chloride 0.9% 1, 525 000 ml @ 75 mls/hr IV . [id number] [facility] Rx#:[id number] Intake, IV Titration 200 Amount Ampicillin-Sulbactam 3 gm 200 In Sodium Chloride 0.9% 100 ml @ 200 mls/hr IVPB Q6HR [facility] Rx#:[id number] Oral 118 Other: Voiding Method Toilet Toilet # Voids 6 # Bowel Movements 1 - Exam GENERAL DESCRIPTION: A middle-age male lying in bed in no distress HEENT: Left lower jaw swelling has decreased RESPIRATORY SYSTEM: Unlabored breathing , decreased breath sounds at bases HEART: S1 S2 regular rate and rhythm , ABDOMEN: Soft , no tenderness EXTREMITIES: No edema feet - Labs CBC & Chem 7: 07/30/21 06:00 07/30/21 06:00 Labs: Abnormal Lab Results - Last 24 Hours (Table) 07/30/21 07/30/21 Range/Units 06:00 06:00 WBC 0.8 L* (3.8-10.6) k/uL RBC 2.32 L (4.30-5.90) m/uL Hgb 7.3 L (13.0-17.5) gm/dL Hct 21.6 L (39.0-53.0) % Plt Count 9 L* D (150-450) k/uL BUN 6.6 L (9.0-27.0) mg/dL BUN/Creatinine Ratio 11.00 L (12.00-20.00) Ratio Calcium 8.5 L (8.7-10.3) mg/dL Total Bilirubin 0.20 L (0.30-1.20) mg/dL AST 12 L (14-35) U/L C-Reactive Protein 8.50 H (0.00-0.80) mg/dL Total Protein 4.9 L (6.2-8.2) g/dL Albumin 3.4 L (3.8-4.9) g/dL Globulin 1.5 L (1.6-3.3) g/dL Microbiology - Last 24 Hours (Table) 07/28/21 12:50 Blood Culture - Preliminary Blood No Growth after 48 hours 07/28/21 16:14 Blood Culture - Preliminary Blood No Growth after 24 hours Assessment and Plan (1) Neutropenic fever Current Visit: Yes Status: Acute Priority: High Code(s): D70.9 - NEUTROP ENIA, UNSPECIFIED; R50.81 - FEVER PRESENTING WITH CONDITIONS CLASSIFIED ELSEWHERE SNOMED Code(s): 924057851 Plan: 1patient presented to hospital with a fever and this patient recently having a problem with an infected tooth and did have a swelling of the left side of the jaw with concern for possible oral source for this fever versus a PICC line infection that has been there for couple of months now. The patient blood culture had been negative that we make PICC line infection to be less likely patient now have a draining sinus between the scrotum and the rectum area and a question of possible fistula or perianal abscess 2 CT of the pelvis with contrast was reviewed with the radiologist Dr. Miles and there was no evidence of any pelvic abscess or fistula 3patient blood cultures negative however cultures obtained from the possible fistula is growing E. coli that is resistant to Zosyn and intermediate to Unasyn patient has been running a low-grade fever after his anybody has been switched over to Rocephin and Flagyl and the patient previously did well on Unasyn more directly towards his left lower jaw, with no evidence of any abscess on the CT and the pelvic area , the patient has been switched back to Unasyn 3 g every 6 hours and seems to his fever has responded as well as culture remains to be negative and continue supportive care Time with Patient: Less than 30
[2021-07-30] MEDS: FILGRASTIM-SNDZ 480 MCG/0.8 ML SYRINGE SQ SCH (17:34)
[2021-07-30] MEDS: amLODIPine 10 MG TAB PO SCH (21:33)
[2021-07-30] MEDS: OLANZapine 5 MG TAB PO SCH (21:33)
--- NOTE | 2021-07-31 01:49 | P.PN ---
Subjective Progress Note Date: 07/30/21 The patient denies any new symptoms. He has not had any overt fevers or chills, nausea or vomiting. He continues to have generalized weakness, which is, however, improving. Appetite is fair. Objective - Vital Signs Vital signs: Vital Signs Temp 98.5 F 07/30/21 23:22 Pulse 94 07/30/21 23:22 Resp 16 07/30/21 23:22 BP 135/84 07/30/21 23:22 Pulse Ox 99 07/30/21 23:22 Intake & Output 07/30/21 07/30/21 07/31/21 06:59 18:59 06:59 Intake Total 725 900 276 Balance 725 900 276 Intake: IV 525 Sodium Chloride 0.9% 1, 525 000 ml @ 75 mls/hr IV . [id number] [facility] Rx#:[id number] Intake, IV Titration 200 900 Amount Ampicillin-Sulbactam 3 gm 200 In Sodium Chloride 0.9% 100 ml @ 200 mls/hr IVPB Q6HR [facility] Rx#:[id number] Sodium Chloride 0.9% 1, 900 000 ml @ 75 mls/hr IV . [id number] [facility] Rx#:[id number] Blood Product 276 Platelet Pheresis Pas 276 Psoralen Unit [id number] Other: Voiding Method Toilet Toilet Toilet # Voids 2 - Constitutional General appearance: Present: no acute distress - EENT Eyes: Present: EOMI ENT: Present: hearing grossly normal, normal oropharynx - Respiratory Respiratory: bilateral: CTA - Cardiovascular Rhythm: regular Heart sounds: normal: S1, S2 - Gastrointestinal General gastrointestinal: Present: normal bowel sounds, soft - Integumentary Integumentary: Present: normal - Neurologic Neurologic: Present: CNII-XII intact - Musculoskeletal Musculoskeletal: Present: generalized weakness, strength equal bilaterally - Psychiatric Psychiatric: Present: A&O x's 3, appropriate affect - Labs CBC & Chem 7: 07/30/21 06:00 07/30/21 06:00 Labs: Abnormal Lab Results - Last 24 Hours (Table) 07/30/21 07/30/21 Range/Units 06:00 06:00 WBC 0.8 L* (3.8-10.6) k/uL RBC 2.32 L (4.30-5.90) m/uL Hgb 7.3 L (13.0-17.5) gm/dL Hct 21.6 L (39.0-53.0) % Plt Count 9 L* D (150-450) k/uL BUN 6.6 L (9.0-27.0) mg/dL BUN/Creatinine Ratio 11.00 L (12.00-20.00) Ratio Calcium 8.5 L (8.7-10.3) mg/dL Total Bilirubin 0.20 L (0.30-1.20) mg/dL AST 12 L (14-35) U/L C-Reactive Protein 8.50 H (0.00-0.80) mg/dL Total Protein 4.9 L (6.2-8.2) g/dL Albumin 3.4 L (3.8-4.9) g/dL Globulin 1.5 L (1.6-3.3) g/dL Microbiology - Last 24 Hours (Table) 07/28/21 16:14 Blood Culture - Preliminary Blood No Growth after 48 hours 07/28/21 12:50 Blood Culture - Preliminary Blood No Growth after 48 hours Assessment and Plan (1) Neutropenic fever Narrative/Plan: Repeat blood cultures from 07/28/21 were negative. The patient has had some low- grade temps, but no overt fever greater than 100.4. WBC is continuing to improve slowly. Continue filgrastim, till ANC is in a safe range Current Visit: Yes Status: Acute Priority: High Code(s): D70.9 - NEUTROPENIA, UNSPECIFIED; R50.81 - FEVER PRESENTING WITH CONDITIONS CLASSIFIED ELSEWHERE SNOMED Code(s): 318668553 (2) Pancytopenia due to antineoplastic chemotherapy Narrative/Plan: Patient symptomatically feeling somewhat better. Transfuse platelets today for plt count less than 10,000. No overt bleeding. Current Visit: Yes Status: Acute Priority: High Code(s): D61.810 - ANTINE OPLASTIC CHEMOTHERAPY INDUCED PANCYTOPENIA; T45.1X5A - ADVERSE EFFECT OF ANTINEOPLASTIC AND IMMUNOSUP DRUGS, INIT SNOMED Code(s): 291648275473813
[2021-07-31] MEDS: AMPICILLIN-SULBACTAM 3 GM in SODIUM CHLORIDE 0.9% 100 ML IVPB SCH ×3 (05:17→17:32)
[2021-07-31] MEDS: MAGNESIUM OXIDE 400 MG TAB PO SCH (08:10)
[2021-07-31] MEDS: carvediloL 12.5 MG TAB PO SCH ×2 (08:10→17:32)
[2021-07-31] MEDS: PANTOPRAZOLE 40 MG TABLET PO SCH (08:10)
[2021-07-31] MEDS: FLUCONAZOLE 100 MG TAB PO SCH (08:11)
[2021-07-31] MEDS: CHLORHEXIDINE GLUCONATE 15 ML CUP MUCOUS MEM SCH ×4 (08:11→20:54)
[2021-07-31] MEDS: ACYCLOVIR 200 MG CAP PO SCH ×2 (08:11→20:54)
[2021-07-31] MEDS: SODIUM CHLORIDE 0.9% 1,000 ML IV SCH ×2 (08:11→23:09)
--- NOTE | 2021-07-31 10:16 | P.PN ---
Subjective Progress Note Date: 07/31/21 Principal diagnosis: Anal fistula Patient doing well today. Denies perirectal pain. Tolerating diet. Objective - Vital Signs Vital signs: Vital Signs Temp 97.8 F 07/31/21 05:20 Pulse 89 07/31/21 05:20 Resp 16 07/31/21 05:20 BP 115/72 07/31/21 05:20 Pulse Ox 100 07/31/21 05:20 Intake & Output 07/30/21 07/31/21 07/31/21 18:59 06:59 18:59 Intake Total 900 1376 Balance 900 1376 Intake: IV 900 Sodium Chloride 0.9% 1, 900 000 ml @ 75 mls/hr IV . [id number] [facility] Rx#:[id number] Intake, IV Titration 900 200 Amount Ampicillin-Sulbactam 3 gm 200 In Sodium Chloride 0.9% 100 ml @ 200 mls/hr IVPB Q6HR [facility] Rx#:[id number] Sodium Chloride 0.9% 1, 900 000 ml @ 75 mls/hr IV . [id number] [facility] Rx#:[id number] Blood Product 276 Platelet Pheresis Pas 276 Psoralen Unit [id number] Other: Voiding Method Toilet Toilet # Voids 2 2 - Exam Abdomen: Soft, nontender, nondistended - Labs CBC & Chem 7: 07/30/21 06:00 07/30/21 06:00 Labs: Microbiology - Last 24 Hours (Table) 07/28/21 16:14 Blood Culture - Preliminary Blood No Growth after 48 hours 07/28/21 12:50 Blood Culture - Preliminary Blood No Growth after 48 hours Assessment and Plan (1) Perianal pain Narrative/Plan: Patient doing well from a surgical point of view. Continue observation for now. Continue oncologic care. Current Visit: No Status: Acute Code(s): K62.89 - OTHER SPECIFIED DISEASES OF ANUS AND RECTUM SNOMED Code(s): 378257557
[2021-07-31 13:26] LABS: HCT 23.2 % (39.0-53.0); HGB 7.8 gm/dL (13.0-17.5); MCH 31.4 pg (25.0-35.0); MCHC 33.6 g/dL (31.0-37.0); MCV 93.5 fL (80.0-100.0); Mean Platelet Volume 10.2; RBC 2.48 m/uL (4.30-5.90); RDW 14.5 % (11.5-15.5)
[2021-07-31 13:38] LABS: Platelet Count 25 k/uL (150-450)
[2021-07-31 14:11] LABS: Band Neutrophils % 4 %; Lymphocytes # (M) 0.76 k/uL (1.0-4.8); Metamyelocytes # (M) 0.02 k/uL (0); Metamyelocytes % 1 %; Neutrophils % (M) 37 %; Nucleated Red Blood Cells 0 /100 WBC (0-0); Total Cells Counted 100
[2021-07-31 14:12] LABS: Anisocytosis (M) Present; Poikilocytosis (M) Present
--- NOTE | 2021-07-31 16:30 | P.PN ---
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 coli Severe pancytopenia: Secondary to chemotherapy T-cell acute lymphocytic leukemia Sinus tachycardia Elevated troponins likely secondary to sepsis 21-year-old male actively receiving chemotherapy for T-cell acute lymphocytic leukemia came in with compensative fever. Patient appears to have dental infection involving both the lower molars. Patient was given kanamycin by PCP. Patient is presently actively receiving chemotherapy. Patient denied any cough chest x-ray did not show any pneumonia or any dysuria or increased urinary frequency urinalysis is not significant. Patient was started on cefepime was subsequently admitted. Patient is severely pancytopenic with a platelet count of around 2000 and severely anemic secondary to chemotherapy. 07/29/2021 the patient is seen and evaluated in room at bedside; has been running a low- grade fever over the last 24 hour, the patient denies any worsening pain and swelling to the left lower jaw area, the patient denies any difficulty swallowing or breathing, the patient denies chest pain shortness of breath or cough no abdominal pain or diarrhea Vital signs temperature 99.9, pulse 81, respiration 18 and blood pressure 137/82 Labs revealed WBC of 0.7, hemoglobin 7.2, platelets of 19, sodium 139, potassium 3.9, BUN/creatinine of 8/0.56 patient admitted with tooth infection and did have a swelling of the left side of the jaw with concern for possible oral source for this fever versus a PICC line infection that has been there for couple of months now. The patient blood culture had been negative that we make PICC line infection to be less likely patient now have a draining sinus between the scrotum and the rectum area and a question of possible fistula or perianal abscess --CT of the pelvis with contrast was reviewed with the radiologist Dr. Miles and there was no evidence of any pelvic abscess or fistula -patient blood cultures negative however cultures obtained from the possible fistula is growing E. coli that is resistant to Zosyn and intermediate to Unasyn patient has been running a low-grade fever after his anybody has been switched over to Rocephin and Flagyl and the patient previously did well on Unasyn more directly towards his left lower jaw, with no evidence of any abscess on the CT and the pelvic area we will switch him back to Unasyn 3 g every 6 hours and follow up on the repeat culture Objective - Vital Signs Vital signs: Vital Signs Temp 99.9 F H 07/29/21 12:45 Pulse 81 07/29/21 12:45 Resp 18 07/29/21 12:45 BP 137/82 07/29/21 12:45 Pulse Ox 97 07/29/21 12:45 Intake & Output 07/28/21 07/29/21 07/29/21 18:59 06:59 18:59 Intake Total 344 100 Balance 344 100 Weight 100.244 kg Intake: Oral 100 Blood Product 344 Platelet Pheresis Pas 344 Psoralen Unit [id number] Other: Voiding Method Toilet # Voids 4 2 # Bowel Movements 1 1 - Exam GENERAL: The patient is alert and oriented x3, not in any acute distress. Well developed, well nourished. HEENT: Pupils are round and equally reacting to light. EOMI. No scleral icterus. No conjunctival pallor. Normocephalic, atraumatic. No pharyngeal erythema. No thyromegaly. Face is significantly swollen patient does have a swelling in the jaw with some swelling near the first and second lower molar area bilaterally, improved slightly. CARDIOVASCULAR: S1 and S2 present. No murmurs, rubs, or gallops. PULMONARY: Chest is clear to auscultation, no wheezing or crackles. ABDOMEN: Soft, nontender, nondistended, normoactive bowel sounds. No palpable organomegaly. MUSCULOSKELETAL: No joint swelling or deformity. EXTREMITIES: No cyanosis, clubbing, or pedal edema. NEUROLOGICAL: Gross neurological examination did not reveal any focal deficits. SKIN: No rashes. - Labs CBC & Chem 7: 07/31/21 13:10 07/30/21 06:00 Labs: Abnormal Lab Results - Last 24 Hours (Table) 07/28/21 07/29/21 07/29/21 Range/Units 12:50 05:25 05:25 WBC 0.7 L* (3.8-10.6) k/uL RBC 2.37 L (4.30-5.90) m/uL Hgb 7.2 L (13.0-17.5) gm/dL Hct 21.8 L (39.0-53.0) % Plt Count 19 L* D (150-450) k/uL BUN 8 L (9-20) mg/dL Creatinine 0.56 L (0.66-1.25) mg/dL Calcium 8.3 L (8.4-10.2) mg/dL AST 14 L (17-59) U/L Total Protein 5.1 L 5.0 L (6.3-8.2) g/dL Albumin 3.0 L 2.9 L (3.5-5.0) g/dL Microbiology - Last 24 Hours (Table) 07/22/21 22:09 Blood Culture - Final Blood No Growth after 144 hours 07/22/21 22:41 Blood Culture - Final Blood No Growth after 144 hours 07/24/21 13:20 Anaerobic Culture - Final Fistula Anaerobic Gm Negative Bacilli Clostridium sp not perfringens Assessment and Plan Assessment: 1 febrile neutropenia, possible sepsis: Secondary to dental infection rash cellulitis in the maxillary area is improving, also with a perineal fistula which fistula cultures are showing e. coli with drug resistance. ID following closely. -Severe pancytopenia: Secondary to chemotherapy, oncology is following patient, hgb today 7.5 s/p blood transfusion, platelet count 15 today s/p transfusion. 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 -Elevated troponins likely secondary to sepsis, no chest pain, EKG unremarkable. -Gastroesophageal reflux disease -Depression DVT prophylaxis: defferred DVT prophylaxis because of severe thrombocytopenia GI Prophylaxis: Protonix
--- NOTE | 2021-07-31 16:41 | P.PN ---
Subjective Progress Note Date: 07/30/21 Principal diagnosis: Febrile neutropenia/possible sepsis: Secondary to dental infection rash cellulitis in the maxillary area/perineal fistula which fistula cultures are showing e. coli Severe pancytopenia: Secondary to chemotherapy T-cell acute lymphocytic leukemia Sinus tachycardia Elevated troponins likely secondary to sepsis 21-year-old male actively receiving chemotherapy for T-cell acute lymphocytic leukemia came in with compensative fever. Patient appears to have dental infection involving both the lower molars. Patient was given kanamycin by PCP. Patient is presently actively receiving chemotherapy. Patient denied any cough chest x-ray did not show any pneumonia or any dysuria or increased urinary frequency urinalysis is not significant. Patient was started on cefepime was subsequently admitted. Patient is severely pancytopenic with a platelet count of around 2000 and severely anemic secondary to chemotherapy. 07/29/2021 the patient is seen and evaluated in room at bedside; has been running a low- grade fever over the last 24 hour, the patient denies any worsening pain and swelling to the left lower jaw area, the patient denies any difficulty swallowing or breathing, the patient denies chest pain shortness of breath or cough no abdominal pain or diarrhea Vital signs temperature 99.9, pulse 81, respiration 18 and blood pressure 137/82 Labs revealed WBC of 0.7, hemoglobin 7.2, platelets of 19, sodium 139, potassium 3.9, BUN/creatinine of 8/0.56 patient admitted with tooth infection and did have a swelling of the left side of the jaw with concern for possible oral source for this fever versus a PICC line infection that has been there for couple of months now. The patient blood culture had been negative that we make PICC line infection to be less likely patient now have a draining sinus between the scrotum and the rectum area and a question of possible fistula or perianal abscess --CT of the pelvis with contrast was reviewed with the radiologist Dr. Miles and there was no evidence of any pelvic abscess or fistula -patient blood cultures negative however cultures obtained from the possible fistula is growing E. coli that is resistant to Zosyn and intermediate to Unasyn patient has been running a low-grade fever after his anybody has been switched over to Rocephin and Flagyl and the patient previously did well on Unasyn more directly towards his left lower jaw, with no evidence of any abscess on the CT and the pelvic area we will switch him back to Unasyn 3 g every 6 hours and follow up on the repeat culture 07/30/2021 the patient is afebrile this morning, the patient pain and swelling to the left lower jaw area is slightly decreased, the patient denies any difficulty swallowing or breathing, the patient denies chest pain shortness of breath or cough no abdominal pain or diarrhea patient blood cultures negative however cultures obtained from the possible fistula is growing E. coli that is resistant to Zosyn and intermediate to Unasyn patient has been running a low-grade fever after his anybody has been switched over to Rocephin and Flagyl and the patient previously did well on Unasyn more directly towards his left lower jaw, with no evidence of any abscess on the CT and the pelvic area , the patient has been switched back to Unasyn 3 g every 6 hours and seems to his fever has responded as well as culture remains to be negative and continue supportive care Objective - Vital Signs Vital signs: Vital Signs Temp 99.5 F 07/30/21 05:00 Pulse 108 H 07/30/21 05:00 Resp 20 07/30/21 05:00 BP 114/60 07/30/21 05:00 Pulse Ox 98 07/30/21 05:00 Intake & Output 07/29/21 07/30/21 07/30/21 18:59 06:59 18:59 Intake Total 118 725 Balance 118 725 Weight 100.244 kg Intake: IV 525 Sodium Chloride 0.9% 1, 525 000 ml @ 75 mls/hr IV . [id number] [facility] Rx#:[id number] Intake, IV Titration 200 Amount Ampicillin-Sulbactam 3 gm 200 In Sodium Chloride 0.9% 100 ml @ 200 mls/hr IVPB Q6HR [facility] Rx#:[id number] Oral 118 Other: Voiding Method Toilet Toilet # Voids 6 # Bowel Movements 1 - Exam GENERAL: The patient is alert and oriented x3, not in any acute distress. Well developed, well nourished. HEENT: Pupils are round and equally reacting to light. EOMI. No scleral icterus. No conjunctival pallor. Normocephalic, atraumatic. No pharyngeal erythema. No thyromegaly. Face is significantly swollen patient does have a swelling in the jaw with some swelling near the first and second lower molar area bilaterally, improved slightly. CARDIOVASCULAR: S1 and S2 present. No murmurs, rubs, or gallops. PULMONARY: Chest is clear to auscultation, no wheezing or crackles. ABDOMEN: Soft, nontender, nondistended, normoactive bowel sounds. No palpable organomegaly. MUSCULOSKELETAL: No joint swelling or deformity. EXTREMITIES: No cyanosis, clubbing, or pedal edema. NEUROLOGICAL: Gross neurological examination did not reveal any focal deficits. SKIN: No rashes. - Labs CBC & Chem 7: 07/31/21 13:10 07/30/21 06:00 Labs: Abnormal Lab Results - Last 24 Hours (Table) 07/30/21 07/30/21 Range/Units 06:00 06:00 WBC 0.8 L* (3.8-10.6) k/uL RBC 2.32 L (4.30-5.90) m/uL Hgb 7.3 L (13.0-17.5) gm/dL Hct 21.6 L (39.0-53.0) % Plt Count 9 L* D (150-450) k/uL BUN 6.6 L (9.0-27.0) mg/dL BUN/Creatinine Ratio 11.00 L (12.00-20.00) Ratio Calcium 8.5 L (8.7-10.3) mg/dL Total Bilirubin 0.20 L (0.30-1.20) mg/dL AST 12 L (14-35) U/L C-Reactive Protein 8.50 H (0.00-0.80) mg/dL Total Protein 4.9 L (6.2-8.2) g/dL Albumin 3.4 L (3.8-4.9) g/dL Globulin 1.5 L (1.6-3.3) g/dL Microbiology - Last 24 Hours (Table) 07/28/21 12:50 Blood Culture - Preliminary Blood No Growth after 48 hours 07/28/21 16:14 Blood Culture - Preliminary Blood No Growth after 24 hours Assessment and Plan Assessment: 1 febrile neutropenia, possible sepsis: Secondary to dental infection rash cellulitis in the maxillary area is improving, also with a perineal fistula which fistula cultures are showing e. coli with drug resistance. ID following closely. -Severe pancytopenia: Secondary to chemotherapy, oncology is following patient, hgb today 7.5 s/p blood transfusion, platelet count 15 today s/p transfusion. 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 -Elevated troponins likely secondary to sepsis, no chest pain, EKG unremarkable. -Gastroesophageal reflux disease -Depression DVT prophylaxis: defferred DVT prophylaxis because of severe thrombocytopenia GI Prophylaxis: Protonix
--- NOTE | 2021-07-31 16:52 | P.PN ---
Subjective Progress Note Date: 07/31/21 Principal diagnosis: Febrile neutropenia/possible sepsis: Secondary to dental infection rash cellulitis in the maxillary area/perineal fistula which fistula cultures are showing e. coli Severe pancytopenia: Secondary to chemotherapy T-cell acute lymphocytic leukemia Sinus tachycardia Elevated troponins likely secondary to sepsis 21-year-old male actively receiving chemotherapy for T-cell acute lymphocytic leukemia came in with compensative fever. Patient appears to have dental infection involving both the lower molars. Patient was given kanamycin by PCP. Patient is presently actively receiving chemotherapy. Patient denied any cough chest x-ray did not show any pneumonia or any dysuria or increased urinary frequency urinalysis is not significant. Patient was started on cefepime was subsequently admitted. Patient is severely pancytopenic with a platelet count of around 2000 and severely anemic secondary to chemotherapy. 07/29/2021 the patient is seen and evaluated in room at bedside; has been running a low- grade fever over the last 24 hour, the patient denies any worsening pain and swelling to the left lower jaw area, the patient denies any difficulty swallowing or breathing, the patient denies chest pain shortness of breath or cough no abdominal pain or diarrhea Vital signs temperature 99.9, pulse 81, respiration 18 and blood pressure 137/82 Labs revealed WBC of 0.7, hemoglobin 7.2, platelets of 19, sodium 139, potassium 3.9, BUN/creatinine of 8/0.56 patient admitted with tooth infection and did have a swelling of the left side of the jaw with concern for possible oral source for this fever versus a PICC line infection that has been there for couple of months now. The patient blood culture had been negative that we make PICC line infection to be less likely patient now have a draining sinus between the scrotum and the rectum area and a question of possible fistula or perianal abscess --CT of the pelvis with contrast was reviewed with the radiologist Dr. Miles and there was no evidence of any pelvic abscess or fistula -patient blood cultures negative however cultures obtained from the possible fistula is growing E. coli that is resistant to Zosyn and intermediate to Unasyn patient has been running a low-grade fever after his anybody has been switched over to Rocephin and Flagyl and the patient previously did well on Unasyn more directly towards his left lower jaw, with no evidence of any abscess on the CT and the pelvic area we will switch him back to Unasyn 3 g every 6 hours and follow up on the repeat culture 07/30/2021 the patient is afebrile this morning, the patient pain and swelling to the left lower jaw area is slightly decreased, the patient denies any difficulty swallowing or breathing, the patient denies chest pain shortness of breath or cough no abdominal pain or diarrhea patient blood cultures negative however cultures obtained from the possible fistula is growing E. coli that is resistant to Zosyn and intermediate to Unasyn patient has been running a low-grade fever after his anybody has been switched over to Rocephin and Flagyl and the patient previously did well on Unasyn more directly towards his left lower jaw, with no evidence of any abscess on the CT and the pelvic area , the patient has been switched back to Unasyn 3 g every 6 hours and seems to his fever has responded as well as culture remains to be negative and continue supportive care 07/31/2021 Patient is seen and evaluated sitting up in bed; reports improved jaw swelling; denies any fever, cough, chest pain or shortness of breath Vital signs are reviewed and remained stable; no fever last 24 Patient remains on IV antibiotics in form of Unasyn; we will continue to monitor CBC, CRP; ID to make further recommendations for discharge planning Objective - Vital Signs Vital signs: Vital Signs Temp 98.1 F 07/31/21 12:43 Pulse 81 07/31/21 12:43 Resp 16 07/31/21 12:43 BP 107/55 07/31/21 12:43 Pulse Ox 100 07/31/21 12:43 Intake & Output 07/30/21 07/31/21 07/31/21 18:59 06:59 18:59 Intake Total 900 1376 Balance 900 1376 Intake: IV 900 Sodium Chloride 0.9% 1, 900 000 ml @ 75 mls/hr IV . [id number] [facility] Rx#:[id number] Intake, IV Titration 900 200 Amount Ampicillin-Sulbactam 3 gm 200 In Sodium Chloride 0.9% 100 ml @ 200 mls/hr IVPB Q6HR [facility] Rx#:[id number] Sodium Chloride 0.9% 1, 900 000 ml @ 75 mls/hr IV . [id number] [facility] Rx#:[id number] Blood Product 276 Platelet Pheresis Pas 276 Psoralen Unit [id number] Other: Voiding Method Toilet Toilet Toilet # Voids 2 2 - Exam GENERAL: The patient is alert and oriented x3, not in any acute distress. Well developed, well nourished. HEENT: Pupils are round and equally reacting to light. EOMI. No scleral icterus. No conjunctival pallor. Normocephalic, atraumatic. No pharyngeal erythema. No thyromegaly. Face is significantly swollen patient does have a swelling in the jaw with some swelling near the first and second lower molar area bilaterally, improved slightly. CARDIOVASCULAR: S1 and S2 present. No murmurs, rubs, or gallops. PULMONARY: Chest is clear to auscultation, no wheezing or crackles. ABDOMEN: Soft, nontender, nondistended, normoactive bowel sounds. No palpable organomegaly. MUSCULOSKELETAL: No joint swelling or deformity. EXTREMITIES: No cyanosis, clubbing, or pedal edema. NEUROLOGICAL: Gross neurological examination did not reveal any focal deficits. SKIN: No rashes. - Labs CBC & Chem 7: 07/31/21 13:10 07/30/21 06:00 Labs: Microbiology - Last 24 Hours (Table) 07/28/21 16:14 Blood Culture - Preliminary Blood No Growth after 48 hours 07/28/21 12:50 Blood Culture - Preliminary Blood No Growth after 48 hours Assessment and Plan Assessment: 1 febrile neutropenia, possible sepsis: Secondary to dental infection rash cellulitis in the maxillary area is improving, also with a perineal fistula which fistula cultures are showing e. coli with drug resistance. ID following closely. -Severe pancytopenia: Secondary to chemotherapy, oncology is following patient, hgb today 7.5 s/p blood transfusion, platelet count 15 today s/p transfusion. 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 -Elevated troponins likely secondary to sepsis, no chest pain, EKG unremarkable. -Gastroesophageal reflux disease -Depression DVT prophylaxis: defferred DVT prophylaxis because of severe thrombocytopenia GI Prophylaxis: Protonix
[2021-07-31] MEDS: FILGRASTIM-SNDZ 480 MCG/0.8 ML SYRINGE SQ SCH (17:32)
[2021-07-31] MEDS: amLODIPine 10 MG TAB PO SCH (20:54)
[2021-07-31] MEDS: OLANZapine 5 MG TAB PO SCH (20:54)
--- NOTE | 2021-07-31 23:46 | P.PN ---
Subjective Progress Note Date: 07/31/21 Principal diagnosis: Febrile neutropenia and left lower joint infection Patient is a 21-year-old male with a past medical history significant for T-cell lymphoma for the patient is currently on chemotherapy last chemo was 2 weeks ago and also have extension of left lower jaw teeth presented to hospital with a fever and left lower jaw swelling, CT was negative for any abscess. Patient apparently did have a draining sinus between his rectum and scrotal area that has been there for 3 months did not mention it on the initial evaluation culture had been obtained from it on 07/24/2021 On today's evaluation that is 07/31/2021, the patient remains to be afebrile, the patient pain and swelling to the left lower jaw area has decreased in intensity, the patient denies any difficulty swallowing or breathing, the patient denies chest pain shortness of breath or cough no abdominal pain or diarrhea Objective - Vital Signs Vital signs: Vital Signs Temp 98.1 F 07/31/21 12:43 Pulse 81 07/31/21 12:43 Resp 16 07/31/21 12:43 BP 107/55 07/31/21 12:43 Pulse Ox 100 07/31/21 12:43 Intake & Output 07/30/21 07/31/21 07/31/21 18:59 06:59 18:59 Intake Total 900 1376 Balance 900 1376 Intake: IV 900 Sodium Chloride 0.9% 1, 900 000 ml @ 75 mls/hr IV . [id number] [facility] Rx#:[id number] Intake, IV Titration 900 200 Amount Ampicillin-Sulbactam 3 gm 200 In Sodium Chloride 0.9% 100 ml @ 200 mls/hr IVPB Q6HR [facility] Rx#:[id number] Sodium Chloride 0.9% 1, 900 000 ml @ 75 mls/hr IV . [id number] [facility] Rx#:[id number] Blood Product 276 Platelet Pheresis Pas 276 Psoralen Unit [id number] Other: Voiding Method Toilet Toilet Toilet # Voids 2 2 - Exam GENERAL DESCRIPTION: A middle-age male lying in bed in no distress HEENT: Left lower jaw swelling has decreased RESPIRATORY SYSTEM: Unlabored breathing , decreased breath sounds at bases HEART: S1 S2 regular rate and rhythm , ABDOMEN: Soft , no tenderness EXTREMITIES: No edema feet - Labs CBC & Chem 7: 07/31/21 13:10 07/30/21 06:00 Labs: Abnormal Lab Results - Last 24 Hours (Table) 07/31/21 Range/Units 13:10 WBC 2.0 L (3.8-10.6) k/uL RBC 2.48 L (4.30-5.90) m/uL Hgb 7.8 L (13.0-17.5) gm/dL Hct 23.2 L (39.0-53.0) % Plt Count 25 L D (150-450) k/uL Microbiology - Last 24 Hours (Table) 07/28/21 16:14 Blood Culture - Preliminary Blood No Growth after 48 hours 07/28/21 12:50 Blood Culture - Preliminary Blood No Growth after 48 hours Assessment and Plan (1) Neutropenic fever Current Visit: Yes Status: Acute Priority: High Code(s): D70.9 - NEUTROPENIA, UNSPECIFIED; R50.81 - FEVER PRESENTING WITH CONDITIONS CLASSIFIED ELSEWHERE SNOMED Code(s): 898550758 Plan: 1patient presented to hospital with a fever and this patient recently having a problem with an infected tooth and did have a swelling of the left side of the jaw with concern for possible oral source for this fever versus a PICC line infection that has been there for couple of months now. The patient blood culture had been negative that we make PICC line infection to be less likely patient now have a draining sinus between the scrotum and the rectum area and a question of possible fistula or perianal abscess 2 CT of the pelvis with contrast was reviewed with the radiologist Dr. Miles and there was no evidence of any pelvic abscess or fistula 3patient blood cultures negative however cultures obtained from the possible fistula is growing E. coli that is resistant to Zosyn and intermediate to Unasyn patient has been running a low-grade fever afterwards antibiotics were switched over to Rocephin and Flagyl and the patient previously did well on Unasyn more directly towards his left lower jaw, with no evidence of any abscess on the CT and the pelvic area , the patient fever has responded to Unasyn to be continued and hopefully transition to oral Augmentin on discharge Time with Patient: Less than 30
[2021-08-01] MEDS: AMPICILLIN-SULBACTAM 3 GM in SODIUM CHLORIDE 0.9% 100 ML IVPB SCH ×3 (00:25→13:03)
[2021-08-01 06:25] LABS: Basophils % (A) 0 %; Eosinophils % (A) 0 %; HCT 20.9 % (39.0-53.0); Lymphocytes # (A) 1.1 k/uL (1.0-4.8); Lymphocytes % (A) 28 %; MCH 31.2 pg (25.0-35.0); MCHC 33.2 g/dL (31.0-37.0); Monocytes # (A) 0.2 k/uL (0-1.0); Monocytes % (A) 6 %; Neutrophils # (A) 2.3 k/uL (1.3-7.7); Neutrophils % (A) 61 %; RBC 2.23 m/uL (4.30-5.90); RDW 14.4 % (11.5-15.5); WBC 3.8 k/uL (3.8-10.6)
[2021-08-01 06:26] LABS: HGB 6.9 gm/dL (13.0-17.5)
[2021-08-01 07:12] LABS: African American GFR (CKD) >90 (>60 ml/min/1.73 sqM); Anion Gap 4 mmol/L; Blood Urea Nitrogen 10 mg/dL (9-20); C Reactive Protein 4.5 mg/dL (<1.0); Calcium 8.3 mg/dL (8.4-10.2); Carbon Dioxide 31 mmol/L (22-30); Chloride 106 mmol/L (98-107); Glucose 87 mg/dL (74-99); Non-African American GFR(CKD) >90 (>60 ml/min/1.73 sqM); Potassium 3.7 mmol/L (3.5-5.1); Sodium 141 mmol/L (137-145)
[2021-08-01 08:42] LABS: Band Neutrophils % 2 %; Eosinophils # (M) 0.04 k/uL (0-0.7); Lymphocytes # (M) 1.41 k/uL (1.0-4.8); Metamyelocytes # (M) 0.11 k/uL (0); Metamyelocytes % 3 %; Monocytes # (M) 0.27 k/uL (0-1.0); Neutrophils % (M) 50 %; Nucleated Red Blood Cells 0 /100 WBC (0-0); Total Cells Counted 100
[2021-08-01 08:46] LABS: Anisocytosis (M) Present
[2021-08-01 08:48] LABS: Platelet Count 14 k/uL (150-450)
[2021-08-01] MEDS: PANTOPRAZOLE 40 MG TABLET PO SCH (08:50)
[2021-08-01] MEDS: carvediloL 12.5 MG TAB PO SCH (08:50)
[2021-08-01] MEDS: ACYCLOVIR 200 MG CAP PO SCH (08:50)
[2021-08-01] MEDS: MAGNESIUM OXIDE 400 MG TAB PO SCH (08:50)
[2021-08-01] MEDS: FLUCONAZOLE 100 MG TAB PO SCH (08:50)
[2021-08-01] MEDS: CHLORHEXIDINE GLUCONATE 15 ML CUP MUCOUS MEM SCH ×2 (08:50→13:03)
[2021-08-01] MEDS: SODIUM CHLORIDE 0.9% 1,000 ML IV SCH (08:57)
--- NOTE | 2021-08-01 11:09 | P.PN ---
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 He admits to loose stool, slight improvement. Objective - Vital Signs Vital signs: Vital Signs Temp 97.9 F 08/01/21 04:30 Pulse 102 H 08/01/21 08:52 Resp 18 08/01/21 04:30 BP 126/80 08/01/21 08:52 Pulse Ox 98 08/01/21 04:30 Intake & Output 07/31/21 08/01/21 08/01/21 18:59 06:59 18:59 Intake Total 900 1100 Balance 900 1100 Intake: IV 900 Sodium Chloride 0.9% 1, 900 000 ml @ 75 mls/hr IV . [id number] DONTRELL Rx#:[id number] Intake, IV Titration 900 100 Amount Ampicillin-Sulbactam 3 gm 100 In Sodium Chloride 0.9% 100 ml @ 200 mls/hr IVPB Q6HR DONTRELL Rx#:[id number] Sodium Chloride 0.9% 1, 900 000 ml @ 75 mls/hr IV . [id number] DONTRELL Rx#:[id number] Oral 100 Other: Voiding Method Toilet Toilet # Voids 1 1 - Constitutional Constitutional Comment(s): cushingoid appearance General appearance: Present: cooperative, no acute distress - EENT Eyes: Present: anicteric sclerae, EOMI ENT: Present: hearing grossly normal - Respiratory Details: resp even and unlabored - Integumentary Integumentary: Present: pale - Neurologic Neurologic: Present: CNII-XII intact - Musculoskeletal Musculoskeletal: Present: strength equal bilaterally - Psychiatric Psychiatric: Present: A&O x's 3, appropriate affect, intact judgment & insight - Labs CBC & Chem 7: 08/01/21 05:46 08/01/21 05:46 Labs: Abnormal Lab Results - Last 24 Hours (Table) 07/31/21 08/01/21 08/01/21 Range/Units 13:10 05:46 05:46 WBC 2.0 L (3.8-10.6) k/uL RBC 2.48 L 2.23 L (4.30-5.90) m/uL Hgb 7.8 L 6.9 L* (13.0-17.5) gm/dL Hct 23.2 L 20.9 L (39.0-53.0) % Plt Count 25 L D 14 L* (150-450) k/uL Neutrophils # (Manual) 0.80 L (1.3-7.7) k/uL Lymphocytes # (Manual) 0.76 L (1.0-4.8) k/uL Metamyelocytes # (Man) 0.02 H 0.11 H (0) k/uL Carbon Dioxide 31 H (22-30) mmol/L Creatinine 0.51 L (0.66-1.25) mg/dL Calcium 8.3 L (8.4-10.2) mg/dL C-Reactive Protein 4.5 H (<1.0) mg/dL Microbiology - Last 24 Hours (Table) 07/28/21 16:14 Blood Culture - Preliminary Blood No Growth after 72 hours 07/28/21 12:50 Blood Culture - Preliminary Blood No Growth after 72 hours Assessment and Plan (1) Neutropenic fever Narrative/Plan: Spoke with Dr. Barker at [facility]. Pt cycle started 07/07. Anticipate count recovery this week. Did get the OK to add a few days of GCSF to encourage recovery of WBC, started 07/25-WBC WNL and ANC 1.9, give todays dose then stop. Pt has had jaw imaging. He has been seen by Oral Surgeon with no acute intervention felt needed. There is peridex ordered. Pt is on abx, DDS recommends monitoring and reviewed oral hygiene with pt. Stool neg for c-diff. CT pelvis showed perineal fistula, e-coli and anaerobe. Pt is on abx for that. Current Visit: Yes Status: Acute Priority: High Code(s): D70.9 - NEUTROPENIA, UNSPECIFIED; R50.81 - FEVER PRESENTING WITH CONDITIONS CLASSIFIED ELSEWHERE SNOMED Code(s): 721257245 (2) Pancytopenia due to antineoplastic chemotherapy Narrative/Plan: Irradiated blood products. Transfuse for Hgb 6.9 today. Transfuse for plt < 10,000 unless symptomatic, plt 14K today. GCSF cleared for minimal dosing to acutely improve WBC/ANC in setting of concern for acute infection, WCB WNL, ANC 1.9, final dose today then stop. Current Visit: Yes Status: Acute Priority: High Code(s): D61.810 - ANTINEOPLASTIC CHEMOTHERAPY INDUCED PANCYTOPENIA; T45.1X5A - ADVERSE EFFECT OF ANTINEOPLASTIC AND IMMUNOSUP DRUGS, INIT SNOMED Code(s): 758462783832071 (3) Hypokalemia Narrative/Plan: On replacement protocol. K+ 3.7 today Current Visit: Yes Status: Acute Priority: Medium Code(s): E87.6 - HYPOKALEMIA SNOMED Code(s): 26515106 (4) Hypomagnesemia Narrative/Plan: On replacement protocol. No mag level today, will request Current Visit: Yes Status: Acute Priority: Medium Code(s): E83.42 - HYPOMAGNESEMIA SNOMED Code(s): 634164206 Plan: Pt is ok from Hem/Onc standpoint to be discharged once he is cleared by Attending and all Consulting Physicians. If irradiated blood is not going to be here until tomorrow pt could be sched out pt for the transfusion if ok with insurance Pt will cont CBC outpt for PRN transfusions Pt has f/u with [facility] this month Doctor attests: I performed a history and physical examination of this patient, developed impression and plan of care. Discussed with dictator. I agree with dictators note, documented as a scribe.
[2021-08-01 12:11] VITALS: RESP 16
--- NOTE | 2021-08-01 13:36 | P.PN ---
Subjective Progress Note Date: 08/01/21 CHIEF COMPLAINT: Anal fistula HISTORY OF PRESENT ILLNESS: Patient is admitted to the hospital with febrile neutropenia. 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 Currently patient reports no drainage from the fistula or pain. His WBC has improved at 3.8 hemoglobin did drop from 7.8-6.9 platelets did drop from 25-14. He is scheduled for 1 unit of blood today. Patient reports that he might be discharged home today. Afebrile Patient seen and examined with Dr. Manley PHYSICAL EXAM: VITAL SIGNS: Reviewed. GENERAL: Well-developed in no acute distress. HEENT: No sclera icterus. Extraocular movements grossly intact. Moist buccal mucosa. Head is atraumatic, normocephalic. ABDOMEN: Soft. Nondistended. Nontender. NEUROLOGIC: Alert and oriented. Cranial nerves II through XII grossly intact. ASSESSMENT: 1. Perianal fistula 2. Pancytopenic 3. Neutropenic fever 4. History of ALL PLAN: -Patient can be discharged from surgical standpoint when medically cleared -Patient will require surgical intervention for perianal fistula when medically stable and pancytopenia improves. This can be done in the outpatient setting. -Continue oncology care Physician [employer] Furn[employer] Keeper note has been reviewed by physician. Signing provider agrees with the documented findings, assessment, and plan of care. Objective - Vital Signs Vital signs: Vital Signs Temp 98.8 F 08/01/21 12:08 Pulse 85 08/01/21 12:08 Resp 16 08/01/21 12:08 BP 113/70 08/01/21 12:08 Pulse Ox 100 08/01/21 12:08 Intake & Output 07/31/21 08/01/21 08/01/21 18:59 06:59 18:59 Intake Total 900 1100 Balance 900 1100 Intake: IV 900 Sodium Chloride 0.9% 1, 900 000 ml @ 75 mls/hr IV . [id number] DONTRELL Rx#:[id number] Intake, IV Titration 900 100 Amount Ampicillin-Sulbactam 3 gm 100 In Sodium Chloride 0.9% 100 ml @ 200 mls/hr IVPB Q6HR DONTRELL Rx#:[id number] Sodium Chloride 0.9% 1, 900 000 ml @ 75 mls/hr IV . [id number] DONTRELL Rx#:[id number] Oral 100 Other: Voiding Method Toilet Toilet # Voids 1 1 1 - Labs CBC & Chem 7: 08/01/21 05:46 08/01/21 05:46 Labs: Abnormal Lab Results - Last 24 Hours (Table) 07/31/21 08/01/21 08/01/21 Range/Units 13:10 05:46 05:46 WBC 2.0 L (3.8-10.6) k/uL RBC 2.48 L 2.23 L (4.30-5.90) m/uL Hgb 7.8 L 6.9 L* (13.0-17.5) gm/dL Hct 23.2 L 20.9 L (39.0-53.0) % Plt Count 25 L D 14 L* (150-450) k/uL Neutrophils # (Manual) 0.80 L (1.3-7.7) k/uL Lymphocytes # (Manual) 0.76 L (1.0-4.8) k/uL Metamyelocytes # (Man) 0.02 H 0.11 H (0) k/uL Carbon Dioxide 31 H (22-30) mmol/L Creatinine 0.51 L (0.66-1.25) mg/dL Calcium 8.3 L (8.4-10.2) mg/dL C-Reactive Protein 4.5 H (<1.0) mg/dL Crossmatch 08/01/21 Range/Units 10:46 WBC (3.8-10.6) k/uL RBC (4.30-5.90) m/uL Hgb (13.0-17.5) gm/dL Hct (39.0-53.0) % Plt Count (150-450) k/uL Neutrophils # (Manual) (1.3-7.7) k/uL Lymphocytes # (Manual) (1.0-4.8) k/uL Metamyelocytes # (Man) (0) k/uL Carbon Dioxide (22-30) mmol/L Creatinine (0.66-1.25) mg/dL Calcium (8.4-10.2) mg/dL C-Reactive Protein (<1.0) mg/dL Crossmatch See Detail Microbiology - Last 24 Hours (Table) 07/28/21 16:14 Blood Culture - Preliminary Blood No Growth after 72 hours 07/28/21 12:50 Blood Culture - Preliminary Blood No Growth after 72 hours
--- NOTE | 2021-08-01 16:01 | P.DS ---
Providers Date of admission: 07/22/21 23:39 Attending physician: Emily Jay Consults: 07/22/21 23:40 Consult Physician Routine Consulting Provider: Justino Hill Consult Reason/Comments: Febrile neutropenia. Thrombocytopenia. Do you want consulting provider notified?: Yes 07/23/21 11:19 Consult Physician Routine Consulting Provider: Rosina Hurley Consult Reason/Comments: Febrile Neutropenia Do you want consulting provider notified?: Yes 07/24/21 11:01 Consult Physician Urgent Consulting Provider: Matthias Chong Consult Reason/Comments: maxillofacial cellulitis Do you want consulting provider notified?: Yes 07/26/21 15:00 Consult Physician Routine Consulting Provider: Gui Manley Consult Reason/Comments: left perineal fistula, draining Do you want consulting provider notified?: Yes Primary care physician: Moraima Iyer Hospital Course: Final Diagnosis 1 febrile neutropenia, possible sepsis: Secondary to dental infection rash cellulitis in the maxillary area is improving, also with a perineal fistula which fistula cultures are showing e. coli with drug resistance. ID following closely. -Severe pancytopenia: Secondary to chemotherapy, oncology is following patient, hgb today 6.9 transfusing 1 unit PRBC prior to discharge, platelet count 14 s/p transfusion. 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 Started on carvedilol -Elevated troponins likely secondary to sepsis, no chest pain, EKG unremarkable. -Gastroesophageal reflux disease -Depression Discharge Disposition Patient stable for discharge home after he receives 1 unit of pack red blood cells. Patient to also receive dose of filgastrim prior to discharge. Follow up appointments with Dr Valera, Dr Manley, He sees Dr Hill this sunday, Appt made with Wilner Rick at [facility] clinic, also needs to follow up with Dr Barkre at [facility]. Hospital Course 21-year-old male actively receiving chemotherapy for T-cell acute lymphocytic leukemia came in with compensative fever. Patient appears to have dental infection involving both the lower molars. Patient was given kanamycin by PCP. Patient is presently actively receiving chemotherapy. Follows with Dr Barker at [facility] and Dr Liz. Patient denied any cough chest x-ray did not show any pneumonia or any dysuria or increased urinary frequency urinalysis is not significant. Patient was started on cefepime was subsequently admitted. Patient is severely pancytopenic with a platelet count of around 2000 and severely anemic secondary to chemotherapy. Patient had 4 teeth extracted at [facility] about 6 weeks ago. He complaints of facial swelling as well as difficulty swallowing. Patient admitted with tooth infection and did have a swelling of the left side of the jaw with concern for possible oral source for this fever versus a PICC line infection that has been there for couple of months now. Blood culture negative. He underwent a maxillofacial CT which shows mild soft tissue infection or cellulitis over bilateral aspects of the mandible. He was evaluated by Dr Chong with oral surgery. -There is also a perianal fistula with mild drainage. Possible fistula is growing E. coli that is resistant to Zosyn and intermediate to Unasyn patient has been running a low-grade fever after his antibiotic has been switched over to Rocephin and Flagyl and the patient previously did well on Unasyn more directly towards his left lower jaw, with no evidence of any abscess on the CT and the pelvic area we will switch him back to Unasyn 3 g every 6 hours. Patient was transitioned to oral augmentin for 10 more days of antibiotic therapy on discharge. He was evaluated by gen-surgery for this and will follow up in the office once platelet count is more stable. -CT of the pelvis with contrast was reviewed with the radiologist Dr. Miles and there was no evidence of any pelvic abscess or fistula -Patient was monitored closely throughout this hospital stay by oncology. He has received a total of 2 units PRBC and 5 units of platelets this admission. He received a total of 8 days of Filgastrim, with the dose on 08/01/2021 prior to discharge being last dose. 08/01/2021 Patient evaluated today during blood transfusion. Facial swelling is improving. Patient denies sore throat, difficulty swallowing. Has been afebrile for 3 days. Continues on IV unasyn and transition to oral augmentin on discharge. Denies chest pain, shortness of breath. Bowels are moving, urinating without difficulty. Appetite is fair. Plan is for discharge after blood transfusion and will follow up with Dr Hill in the office on Sunday. Lungs are clear, S1 S2 auscultated. Cleared by all consultations for discharge today. WBC 3.8 today, hgb 6.9, platelet count 14, potassium 3.7. CRP has trended down now 4.5. Focal neurological exam is negative. Please see medication reconciliation for a list of current medication. Thank you for allowing us to participate in the care of this patient. The impression and plan of care has been dictated by Rosie Salguero, Nurse Practitioner as directed. Dr. Justin MD I have performed a history and physical examination and medical decision making of this patient, discussed the same with the dictator, and agree with the dictators assessment and plan as written, documented as a scribe. Based on total visit time, I have performed more than 50% of this visit. Patient Condition at Discharge: Fair Plan - Discharge Summary Discharge Rx Participant: No New Discharge Prescriptions: New Magnesium Oxide [Mag-Ox] 400 mg PO DAILY #30 tab Chlorhexidine Gluconate [Peridex] 10 ml MUCOUS MEM BID #1 each Pantoprazole [Protonix] 40 mg PO AC-BRKFST #14 tab Amoxicillin/Potassium Clav [Augmentin 875-125 Tablet] 1 tab PO Q12HR 10 Days #20 tab carvediloL [Coreg*] 25 mg PO BID-W/MEALS #60 tab dronabinoL [Marinol] 2.5 mg PO AC-BID 3 Days #6 cap Continue LORazepam [Ativan] 1 mg PO BID PRN PRN Reason: Anxiety Acyclovir 400 mg PO BID Dapsone 100 mg PO DAILY Furosemide [Lasix] 20 mg PO DAILY Omeprazole [PriLOSEC] 10 mg PO DAILY Ondansetron Odt [Zofran ODT] 8 mg PO Q8H PRN PRN Reason: Nausea OLANZapine [ZyPREXA] 5 mg PO HS amLODIPine [Norvasc] 10 mg PO HS Prochlorperazine [Compazine] 10 mg PO Q6H PRN PRN Reason: Nausea Sertraline [Zoloft] 100 mg PO DAILY Discontinued Losartan Potassium 100 mg PO DAILY clindamycin HCL [Cleocin] 300 mg PO Q8H Discharge Medication List LORazepam [Ativan] 1 mg PO BID PRN 07/22/21 [History] Acyclovir 400 mg PO BID 07/23/21 [History] Dapsone 100 mg PO DAILY 07/23/21 [History] Furosemide [Lasix] 20 mg PO DAILY 07/23/21 [History] OLANZapine [ZyPREXA] 5 mg PO HS 07/23/21 [History] Omeprazole [PriLOSEC] 10 mg PO DAILY 07/23/21 [History] Ondansetron Odt [Zofran ODT] 8 mg PO Q8H PRN 07/23/21 [History] Prochlorperazine [Compazine] 10 mg PO Q6H PRN 07/23/21 [History] Sertraline [Zoloft] 100 mg PO DAILY 07/23/21 [History] amLODIPine [Norvasc] 10 mg PO HS 07/23/21 [History] Amoxicillin/Potassium Clav [Augmentin 875-125 Tablet] 1 tab PO Q12HR 10 Days #20 tab 08/01/21 [Rx] Chlorhexidine Gluconate [Peridex] 10 ml MUCOUS MEM BID #1 each 08/01/21 [Rx] Magnesium Oxide [Mag-Ox] 400 mg PO DAILY #30 tab 08/01/21 [Rx] Pantoprazole [Protonix] 40 mg PO AC-BRKFST #14 tab 08/01/21 [Rx] carvediloL [Coreg*] 25 mg PO BID-W/MEALS #60 tab 08/01/21 [Rx] dronabinoL [Marinol] 2.5 mg PO AC-BID 3 Days #6 cap 08/01/21 [Rx] Follow up Appointment(s)/Referral(s): Jaylon Valera MD [Primary Care Provider] - 1-2 days Gui Manley MD [STAFF PHYSICIAN] - 1 Week Wilner Rick DDS [Other] - 08/11/21 9:30 am Justino Hill MD [STAFF PHYSICIAN] - 08/03/21 Ambulatory/Diagnostic Orders: Complete Blood Count w/diff [LAB.AMB] Time Frame: 1 Day, Location: None Selected Activity/Diet/Wound Care/Special Instructions: Follow up with Dr Rick at the [facility] dental clinic. Appointment has been made, call If you need to change this appointment. Follow up with Dr Barker and [facility] Discharge Disposition: HOME SELF-CARE
[2021-08-01 16:38] VITALS: BP 105/67; PULSE 86; TEMP 98.5
[2021-08-01] MEDS: FILGRASTIM-SNDZ 480 MCG/0.8 ML SYRINGE SQ SCH (16:56)
== END 2021-08-01 17:35 | disposition home or self-care (01) | DRG 871 ==
LOC: EC 20:24 → 5NMEDONC 23:39 → 3SCARD 07-23 04:43 → 5NMEDONC 07-27 18:37
PROVIDERS: ADMIT Hospitalist; ATTEND Hospitalist
PROC: 30233N1 Transfusion of Nonautologous Red Blood Cells into Peripheral Vein, Percutaneous Approach (ICD-10-PCS; principal; 2021-07-25)
PROC: 30233R1 Transfusion of Nonautologous Platelets into Peripheral Vein, Percutaneous Approach (ICD-10-PCS; 2021-07-25)
DX: A41.51 Sepsis due to Escherichia coli [E. coli] (principal); D61.810 Antineoplastic chemotherapy induced pancytopenia; C91.00 Acute lymphoblastic leukemia not having achieved remission; L03.211 Cellulitis of face; K61.2 Anorectal abscess; T81.41XA Infection following a procedure, superficial incisional surgical site, initial encounter; K60.3 Anal fistula; T45.1X5A Adverse effect of antineoplastic and immunosuppressive drugs, initial encounter; D64.9 Anemia, unspecified; K04.7 Periapical abscess without sinus; D70.9 Neutropenia, unspecified; E83.42 Hypomagnesemia; R79.89 Other specified abnormal findings of blood chemistry; E86.0 Dehydration; E87.6 Hypokalemia; F32.A Depression, unspecified; J40 Bronchitis, not specified as acute or chronic; I10 Essential (primary) hypertension; J45.909 Unspecified asthma, uncomplicated; K21.9 Gastro-esophageal reflux disease without esophagitis; R77.8 Other specified abnormalities of plasma proteins; R13.10 Dysphagia, unspecified; R50.81 Fever presenting with conditions classified elsewhere; Z79.899 Other long term (current) drug therapy; Z80.3 Family history of malignant neoplasm of breast; Z80.8 Family history of malignant neoplasm of other organs or systems; Y84.8 Other medical procedures as the cause of abnormal reaction of the patient, or of later complication, without mention of misadventure at the time of the procedure; Z82.3 Family history of stroke; Z82.49 Family history of ischemic heart disease and other diseases of the circulatory system; Z83.3 Family history of diabetes mellitus; Z85.72 Personal history of non-Hodgkin lymphomas; Z88.2 Allergy status to sulfonamides; X58.XXXA Exposure to other specified factors, initial encounter
CPT/HCPCS: 36415; 70486; 71046; 72193; 80048; 80053; 80076; 80202; 81001; 83605; 83615; 83735; 84132; 84484; 84550; 85025; 85027; 85049; 85610; 85730; 86140; 86850; 86900; 86901; 86920; 87040; 87070; 87075; 87077; 87086; 87186; 87205; 87324; 87635; 93005; 96361; 96365; 99291

== ENCOUNTER 2022-02-06 20:22 | Emergency (ER) | payer OTHER ==
[2022-02-06 20:45] VITALS: RESP 18
[2022-02-06] MEDS ORDERED: ACETAMINOPHEN TAB 325 MG TAB PO STA (23:31)
--- NOTE | 2022-02-06 23:44 | ED ---
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 Patient's symptoms began 4-5 days ago. He did have home covid Test which was negative for days ago. MD Complaint: fever, cough, rhinorrhea, nasal congestion Onset/Timin -: days(s) Consistency: constant Improves With: nothing Worsens With: nothing Context: recent chemotherapy Associated Symptoms: fever, chills, myalgias, nasal congestion, cough Treatments Prior to Arrival: none - Related Data Home Medications Medication Instructions Recorded Confirmed LORazepam [Ativan] 1 mg PO BID PRN 07/22/21 07/22/21 Acyclovir [Zovirax] 400 mg PO BID 07/23/21 07/23/21 Dapsone 100 mg PO DAILY 07/23/21 07/23/21 Furosemide [Lasix] 20 mg PO DAILY 07/23/21 07/23/21 OLANZapine [ZyPREXA] 5 mg PO HS 07/23/21 07/23/21 Omeprazole [PriLOSEC] 10 mg PO DAILY 07/23/21 07/23/21 Ondansetron Odt [Zofran ODT] 8 mg PO Q8H PRN 07/23/21 07/23/21 Prochlorperazine [Compazine] 10 mg PO Q6H PRN 07/23/21 07/23/21 Sertraline [Zoloft] 100 mg PO DAILY 07/23/21 07/23/21 amLODIPine [Norvasc] 10 mg PO HS 07/23/21 07/23/21 Previous Rx's Medication Instructions Recorded Amoxicillin/Potassium Clav 1 tab PO Q12HR 10 Days #20 tab 08/01/21 [Augmentin 875-125 Tablet] Chlorhexidine Gluconate [Peridex] 10 ml MUCOUS MEM BID #1 each 08/01/21 Magnesium Oxide [Mag-Ox] 400 mg PO DAILY #30 tab 08/01/21 Pantoprazole [Protonix] 40 mg PO AC-BRKFST #14 tab 08/01/21 carvediloL [Coreg*] 25 mg PO BID-W/MEALS #60 tab 08/01/21 dronabinoL [Marinol] 2.5 mg PO AC-BID 3 Days #6 cap 08/01/21 Allergies Allergy/AdvReac Type Severity Reaction Status Date / Time Sulfa (Sulfonamide Allergy Rash/Hives Verified 02/06/22 20:45 Antibiotics) Review of Systems ROS Statement: Those systems with pertinent positive or pertinent negative responses have been documented in the HPI. ROS Other: All systems not noted in ROS Statement are negative. Constitutional: Reports: fever, chills Eyes: Denies: eye pain, vision change ENT: Reports: congestion. Denies: ear pain, hearing loss Respiratory: Reports: cough. Denies: dyspnea, wheezes Cardiovascular: Denies: chest pain, palpitations, orthopnea, edema, syncope Gastrointestinal: Reports: diarrhea. Denies: abdominal pain, nausea, vomiting, melena, hematochezia Genitourinary: Denies: dysuria, hematuria Musculoskeletal: Denies: back pain Skin: Denies: rash Neurological: Denies: headache, weakness Past Medical History Past Medical History: Asthma, Cancer, GERD/Reflux Additional Past Medical History / Comment(s): Bronchitis, perirectal abscess for 3 months and still current. ALL. finished 5th round of chemo recently History of Any Multi-Drug Resistant Organisms: None Reported Past Surgical History: Appendectomy Additional Past Surgical History / Comment(s): Dental procedures, EGD, Past Anesthesia/Blood Transfusion Reactions: No Reported Reaction, Family H istory of Problems w/ Anesthesia Additional Past Anesthesia/Blood Transfusion Reaction / Comment(s): Mother has PONV Past Psychological History: No Psychological Hx Reported Smoking Status: Never smoker Past Alcohol Use History: None Reported Past Drug Use History: Marijuana - Past Family History Mother Family Medical History: CVA/TIA, Diabetes Mellitus, Hyperlipidemia, Hypertension Additional Family Medical History / Comment(s): TIA Father Family Medical History: CVA/TIA Additional Family Medical History / Comment(s): TIA General Exam Limitations: no limitations General appearance: alert, in no apparent distress Head exam: Present: atraumatic, normocephalic Eye exam: Present: normal appearance. Absent: scleral icterus, conjunctival injection Neck exam: Present: normal inspection Respiratory exam: Present: rhonchi. Absent: respiratory distress, wheezes, rales, stridor, accessory muscle use, decreased breath sounds Cardiovascular Exam: Present: regular rate, normal rhythm, normal heart sounds. Absent: systolic murmur, diastolic murmur, rubs, gallop GI/Abdominal exam: Present: soft. Absent: distended, tenderness, guarding, rebound, rigid, mass Extremities exam: Present: normal inspection, normal capillary refill. Absent: pedal edema, calf tenderness Back exam: Present: normal inspection. Absent: CVA tenderness (R), CVA tenderness (L) Neurological exam: Present: alert Skin exam: Present: warm, dry, intact, normal color. Absent: rash Course Vital Signs 02/06/22 02/07/22 20:43 01:13 Temperature 99.6 F 98.4 F Pulse Rate 90 Respiratory 18 Rate Blood Pressure 152/84 O2 Sat by Pulse 94 L Oximetry Medical Decision Making - Lab Data Result diagrams: 02/07/22 00:04 02/07/22 00:04 Lab Results 02/06/22 02/06/22 02/07/22 Range/Units 23:41 23:44 00:04 WBC 2.4 L (3.8-10.6) k/uL RBC 3.64 L (4.30-5.90) m/uL Hgb 13.0 (13.0-17.5) gm/dL Hct 38.0 L (39.0-53.0) % MCV 104.4 H (80.0-100.0) fL MCH 35.7 H (25.0-35.0) pg MCHC 34.2 (31.0-37.0) g/dL RDW 15.2 (11.5-15.5) % Plt Count 274 (150-450) k/uL MPV 8.6 Neutrophils % 66 % Lymphocytes % 9 % Monocytes % 8 % Eosinophils % 11 % Basophils % 2 % Neutrophils # 1.6 (1.3-7.7) k/uL Lymphocytes # 0.2 L (1.0-4.8) k/uL Monocytes # 0.2 (0-1.0) k/uL Eosinophils # 0.3 (0-0.7) k/uL Basophils # 0.0 (0-0.2) k/uL Hypochromasia Slight Macrocytosis Moderate PT (9.0-12.0) sec INR (<1.2) APTT (22.0-30.0) sec Sodium (137-145) mmol/L Potassium (3.5-5.1) mmol/L Chloride (98-107) mmol/L Carbon Dioxide (22-30) mmol/L Anion Gap mmol/L BUN (9-20) mg/dL Creatinine (0.66-1.25) mg/dL Est GFR (CKD-EPI)AfAm (>60 ml/min/1.73 sqM) Est GFR (CKD-EPI)NonAf (>60 ml/min/1.73 sqM) Glucose (74-99) mg/dL Plasma Lactic Acid Milind (0.7-2.0) mmol/L Calcium (8.4-10.2) mg/dL Total Bilirubin (0.2-1.3) mg/dL AST (17-59) U/L ALT (4-49) U/L Alkaline Phosphatase (38-126) U/L Total Protein (6.3-8.2) g/dL Albumin (3.5-5.0) g/dL Urine Color Urine Appearance (Clear) Urine pH (5.0-8.0) Ur Specific [place] (1.001-1.035) Urine Protein (Negative) Urine Glucose (UA) (Negative) Urine Ketones (Negative) Urine Blood (Negative) Urine Nitrite (Negative) Urine Bilirubin (Negative) Urine Urobilinogen (<2.0) mg/dL Ur Leukocyte Esterase (Negative) Coronavirus (PCR) Not Detected (Not Detectd) Influenza Type A RNA Not Detected (Not Detectd) Influenza Type B (PCR) Not Detected (Not Detectd) 02/07/22 02/07/22 02/07/22 Range/Units 00:04 00:04 00:04 WBC (3.8-10.6) k/uL RBC (4.30-5.90) m/uL Hgb (13.0-17.5) gm/dL Hct (39.0-53.0) % MCV (80.0-100.0) fL MCH (25.0-35.0) pg MCHC (31.0-37.0) g/dL RDW (11.5-15.5) % Plt Count (150-450) k/uL MPV Neutrophils % % Lymphocytes % % Monocytes % % Eosinophils % % Basophils % % Neutrophils # (1.3-7.7) k/uL Lymphocytes # (1.0-4.8) k/uL Monocytes # (0-1.0) k/uL Eosinophils # (0-0.7) k/uL Basophils # (0-0.2) k/uL Hypochromasia Macrocytosis PT 10.4 (9.0-12.0) sec INR 0.9 (<1.2) APTT 26.9 (22.0-30.0) sec Sodium 139 (137-145) mmol/L Potassium 3.8 (3.5-5.1) mmol/L Chloride 100 (98-107) mmol/L Carbon Dioxide 24 (22-30) mmol/L Anion Gap 15 mmol/L BUN 7 L (9-20) mg/dL Creatinine 0.53 L (0.66-1.25) mg/dL Est GFR (CKD-EPI)AfAm >90 (>60 ml/min/1.73 sqM) Est GFR (CKD-EPI)NonAf >90 (>60 ml/min/1.73 sqM) Glucose 90 (74-99) mg/dL Plasma Lactic Acid Milind 0.7 (0.7-2.0) mmol/L Calcium 9.3 (8.4-10.2) mg/dL Total Bilirubin 2.2 H (0.2-1.3) mg/dL AST 41 (17-59) U/L ALT 85 H (4-49) U/L Alkaline Phosphatase 74 (38-126) U/L Total Protein 6.2 L (6.3-8.2) g/dL Albumin 4.2 (3.5-5.0) g/dL Urine Color Urine Appearance (Clear) Urine pH (5.0-8.0) Ur Specific [place] (1.001-1.035) Urine Protein (Negative) Urine Glucose (UA) (Negative) Urine Ketones (Negative) Urine Blood (Negative) Urine Nitrite (Negative) Urine Bilirubin (Negative) Urine Urobilinogen (<2.0) mg/dL Ur Leukocyte Esterase (Negative) Coronavirus (PCR) (Not Detectd) Influenza Type A RNA (Not Detectd) Influenza Type B (PCR) (Not Detectd) 02/07/22 Range/Units 02:32 WBC (3.8-10.6) k/uL RBC (4.30-5.90) m/uL Hgb (13.0-17.5) gm/dL Hct (39.0-53.0) % MCV (80.0-100.0) fL MCH (25.0-35.0) pg MCHC (31.0-37.0) g/dL RDW (11.5-15.5) % Plt Count (150-450) k/uL MPV Neutrophils % % Lymphocytes % % Monocytes % % Eosinophils % % Basophils % % Neutrophils # (1.3-7.7) k/uL Lymphocytes # (1.0-4.8) k/uL Monocytes # (0-1.0) k/uL Eosinophils # (0-0.7) k/uL Basophils # (0-0.2) k/uL Hypochromasia Macrocytosis PT (9.0-12.0) sec INR (<1.2) APTT (22.0-30.0) sec Sodium (137-145) mmol/L Potassium (3.5-5.1) mmol/L Chloride (98-107) mmol/L Carbon Dioxide (22-30) mmol/L Anion Gap mmol/L BUN (9-20) mg/dL Creatinine (0.66-1.25) mg/dL Est GFR (CKD-EPI)AfAm (>60 ml/min/1.73 sqM) Est GFR (CKD-EPI)NonAf (>60 ml/min/1.73 sqM) Glucose (74-99) mg/dL Plasma Lactic Acid Milind (0.7-2.0) mmol/L Calcium (8.4-10.2) mg/dL Total Bilirubin (0.2-1.3) mg/dL AST (17-59) U/L ALT (4-49) U/L Alkaline Phosphatase (38-126) U/L Total Protein (6.3-8.2) g/dL Albumin (3.5-5.0) g/dL Urine Color Yellow Urine Appearance Clear (Clear) Urine pH 6.0 (5.0-8.0) Ur Specific [place] 1.020 (1.001-1.035) Urine Protein Trace H (Negative) Urine Glucose (UA) Negative (Negative) Urine Ketones 2+ H (Negative) Urine Blood Negative (Negative) Urine Nitrite Negative (Negative) Urine Bilirubin 1+ H (Negative) Urine Urobilinogen 3.0 (<2.0) mg/dL Ur Leukocyte Esterase Negative (Negative) Coronavirus (PCR) (Not Detectd) Influenza Type A RNA (Not Detectd) Influenza Type B (PCR) (Not Detectd) - EKG Data EKG shows normal: sinus rhythm, axis (Normal), intervals (Normal), QRS complexes (Normal) Rate: normal (Rate 82 bpm) Interpretation: nonspecific ST-T wave changes Disposition Clinical Impression: Upper respiratory infection Disposition: HOME SELF-CARE Condition: Good Instructions (If sedation given, give patient instructions): Upper Respiratory Infection (ED) Is patient prescribed a controlled substance at d/c from ED?: No Referrals: Jaylon Valera MD [Primary Care Provider] - 1-2 days
[2022-02-06] MEDS ORDERED: SODIUM CHLORIDE 0.9% 1,000 ML IV SCH (23:45)
--- NOTE | 2022-02-07 00:28 | XR ---
EXAMINATION TYPE: XR chest 2V DATE OF EXAM: 02/07/2022 COMPARISON: 07/22/2021 HISTORY: Cough and fever TECHNIQUE: 2 views FINDINGS: Heart and mediastinum are normal. Lungs are clear. Diaphragm is normal. Bony thorax is inta ct. The pulmonary vascularity is normal. IMPRESSION: Normal chest. No change
[2022-02-07 00:41] LABS: ALT 85 U/L (4-49); AST 41 U/L (17-59); African American GFR (CKD) >90 (>60 ml/min/1.73 sqM); Albumin 4.2 g/dL (3.5-5.0); Alkaline Phosphatase 74 U/L (38-126); Anion Gap 15 mmol/L; Blood Urea Nitrogen 7 mg/dL (9-20); Calcium 9.3 mg/dL (8.4-10.2); Carbon Dioxide 24 mmol/L (22-30); Chloride 100 mmol/L (98-107); Glucose 90 mg/dL (74-99); Non-African American GFR(CKD) >90 (>60 ml/min/1.73 sqM); Potassium 3.8 mmol/L (3.5-5.1); Sodium 139 mmol/L (137-145); Total Bilirubin 2.2 mg/dL (0.2-1.3); Total Protein 6.2 g/dL (6.3-8.2)
[2022-02-07 00:47] LABS: Basophils % (A) 2 %; Eosinophils # (A) 0.3 k/uL (0-0.7); Eosinophils % (A) 11 %; Hypochromasia Slight; Lymphocytes # (A) 0.2 k/uL (1.0-4.8); Lymphocytes % (A) 9 %; MCH 35.7 pg (25.0-35.0); MCHC 34.2 g/dL (31.0-37.0); MCV 104.4 fL (80.0-100.0); Macrocytosis Moderate; Mean Platelet Volume 8.6; Monocytes # (A) 0.2 k/uL (0-1.0); Monocytes % (A) 8 %; Neutrophils # (A) 1.6 k/uL (1.3-7.7); Neutrophils % (A) 66 %; Platelet Count 274 k/uL (150-450); RBC 3.64 m/uL (4.30-5.90); RDW 15.2 % (11.5-15.5); WBC 2.4 k/uL (3.8-10.6)
[2022-02-07 00:49] LABS: INR 0.9 (<1.2); Partial Thromboplastin Time 26.9 sec (22.0-30.0); Prothrombin Time 10.4 sec (9.0-12.0)
[2022-02-07 01:13] VITALS: TEMP 98.4
[2022-02-07 02:57] LABS: Appearance,Urine Clear (Clear); Bilirubin,Urine 1+ (Negative); Blood,Urine Negative (Negative); Color,Urine Yellow; Glucose,Urine (UA) Negative (Negative); Ketones,Urine 2+ (Negative); Leukocyte Esterase,Urine Negative (Negative); Nitrite,Urine Negative (Negative); Protein,Urine Trace (Negative)
[2022-02-07 03:35] VITALS: PULSE 71
[2022-02-07 03:36] VITALS: BP 164/100
== END 2022-02-07 03:36 | disposition home or self-care (01) ==
LOC: EC 20:22
DX: J06.9 Acute upper respiratory infection, unspecified (principal); J45.909 Unspecified asthma, uncomplicated; K21.9 Gastro-esophageal reflux disease without esophagitis; Z79.1 Long term (current) use of non-steroidal anti-inflammatories (NSAID); Z88.2 Allergy status to sulfonamides; Z20.822 Contact with and (suspected) exposure to COVID-19
CPT/HCPCS: 36415; 71046; 80053; 81003; 83605; 85025; 85610; 85730; 87040; 87502; 87635; 93005

== ENCOUNTER 2024-01-23 06:12 | Emergency (ER) | payer OTHER ==
--- NOTE | 2024-01-23 06:36 | ED ---
Seizure HPI <Matthias Lin - Last Filed: 01/23/24 07:57> - General Source: patient, RN notes reviewed Mode of arrival: ambulatory Limitations: no limitations - History of Present Illness MD Complaint: seizure Onset/Timin -: minutes(s) (seizure occurred 1 hour prior to ER arrival) Description of Episode: tonic-clonic movement Witnessed: yes - by bystander (mother) Trauma: No Seizure History: none Place: home <Andry Santoro - Last Filed: 01/23/24 09:17> - General Chief Complaint: Seizure Stated Complaint: seizure Time Seen by Provider: 01/23/24 06:20 - History of Present Illness Initial Comments: This is a 23-year-old male presenting with mother for possible seizure at home x 1 hour ago. Mother states she witnessed the incident, stating patient experienced tonic/clonic type seizure lasting approximately 4 minutes. Patient denies history of seizure. Endorses chronic history of insomnia and poor sleep. Denies recent medications/drug use. Patient denies confusion/postictal state following seizure, but endorses retrograde amnesia of the previous 1 to 2 hours prior to event. States last remembering working on computer. Patient endorses arrival of EMS and checked vital signs but did not transport, advising follow-up in the ER for further workup. Mother states patient repeatedly hit head against wall during event. Patient endorses history of ALL diagnosed in 2020. 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 Fol lowing lab work and imaging, patient admits recent Xanax use 1.5 mg with sudden cessation shortly prior to onset of seizure-like activity. Patient also endorses some dyspnea he associates with marijuana use. (Andry Santoro) - Related Data Home Medications Medication Instructions Recorded Confirmed LORazepam [Ativan] 1 mg PO BID PRN 07/22/21 07/22/21 Acyclovir [Zovirax] 400 mg PO BID 07/23/21 07/23/21 Dapsone 100 mg PO DAILY 07/23/21 07/23/21 Furosemide [Lasix] 20 mg PO DAILY 07/23/21 07/23/21 OLANZapine [ZyPREXA] 5 mg PO HS 07/23/21 07/23/21 Omeprazole [PriLOSEC] 10 mg PO DAILY 07/23/21 07/23/21 Ondansetron Odt [Zofran ODT] 8 mg PO Q8H PRN 07/23/21 07/23/21 Prochlorperazine [Compazine] 10 mg PO Q6H PRN 07/23/21 07/23/21 Sertraline [Zoloft] 100 mg PO DAILY 07/23/21 07/23/21 amLODIPine [Norvasc] 10 mg PO HS 07/23/21 07/23/21 Previous Rx's Medication Instructions Recorded Amoxicillin/Potassium Clav 1 tab PO Q12HR 10 Days #20 tab 08/01/21 [Augmentin 875-125 Tablet] Chlorhexidine Gluconate [Peridex] 10 ml MUCOUS MEM BID #1 each 08/01/21 Magnesium Oxide [Mag-Ox] 400 mg PO DAILY #30 tab 08/01/21 Pantoprazole [Protonix] 40 mg PO AC-BRKFST #14 tab 08/01/21 carvediloL [Coreg*] 25 mg PO BID-W/MEALS #60 tab 08/01/21 droNABinol [Marinol] 2.5 mg PO AC-BID 3 Days #6 cap 08/01/21 Allergies Allergy/AdvReac Type Severity Reaction Status Date / Time No Known Allergies Allergy Verified 01/23/24 08:05 Review of Systems ROS Other: All systems not noted in ROS Statement are negative. <Matthias Lin - Last Filed: 01/23/24 07:57> ROS Other: All systems not noted in ROS Statement are negative. <Andry Santoro - Last Filed: 01/23/24 09:17> ROS Statement: Those systems with pertinent positive or pertinent negative responses have been documented in the HPI. Past Medical History Past Medical History: Asthma, Cancer, GERD/Reflux Additional Past Medical History / Comment(s): Bronchitis, perirectal abscess for 3 months and still current. ETP/ALL. finished 5th round of chemo recently, bone marrow x2 last being in May 2023 History of Any Multi-Drug Resistant Organisms: None Reported Past Surgical History: Appendectomy Additional Past Surgical History / Comment(s): Dental procedures, EGD, Past Anesthesia/Blood Transfusion Reactions: No Reported Reaction, Family History of Problems w/ Anesthesia Additional Past Anesthesia/Blood Transfusion Reaction / Comment(s): Mother has PONV Past Psychological History: No Psychological Hx Reported Smoking Status: Never smoker Past Alcohol Use History: None Reported Past Drug Use History: Marijuana - Past Family History Mother Family Medical History: CVA/TIA, Diabetes Mellitus, Hyperlipidemia, Hypertension Additional Family Medical History / Comment(s): TIA Father Family Medical History: CVA/TIA Additional Family Medical History / Comment(s): TIA <Andry Santoro - Last Filed: 01/23/24 09:17> General Exam Limitations: no limitations General appearance: alert, in no apparent distress Head exam: Present: atraumatic, normocephalic, normal inspection Eye exam: Present: normal appearance, PERRL, EOMI. Absent: scleral icterus, conjunctival injection, periorbital swelling ENT exam: Present: normal exam, mucous membranes moist Neck exam: Present: normal inspection. Absent: tenderness, meningismus, lymphadenopathy Respiratory exam: Present: wheezes, rhonchi (Coarse lung sounds with wheezing throughout with known history of smoking.), prolonged expiratory, other (Patient has improved work of breathing following albuterol nebulized. Lung sounds improved with ongoing mild rhonchi and expiratory wheezing.). Absent: respiratory distress, rales, stridor Cardiovascular Exam: Present: regular rate, normal rhythm, normal heart sounds. Absent: systolic murmur, diastolic murmur, rubs, gallop, clicks GI/Abdominal exam: Present: soft, normal bowel sounds. Absent: distended, tenderness, guarding, rebound, rigid Extremities exam: Present: normal inspection, full ROM, normal capillary refill. Absent: tenderness, pedal edema, joint swelling, calf tenderness Back exam: Present: normal inspection Neurological exam: Present: alert, oriented X3, CN II-XII intact Psychiatric exam: Present: normal affect, normal mood Skin exam: Present: warm, dry, intact, normal color. Absent: rash <Andry Santoro - Last Filed: 01/23/24 09:17> Course Vital Signs 01/23/24 06:14 Temperature 98.2 F Pulse Rate 84 Respiratory 13 Rate Blood Pressure 138/88 O2 Sat by Pulse 95 Oximetry Medical Decision Making - Lab Data Result diagrams: 01/23/24 07:07 01/23/24 07:07 <Matthias Lin - Last Filed: 01/23/24 07:57> - Lab Data Result diagrams: 01/23/24 07:07 01/23/24 07:07 <Andry Santoro - Last Filed: 01/23/24 09:17> - Medical Decision Making Was pt. sent in by a medical professional or institution (, SUKUMAR, SURVEY DATA TECHNICIAN, urgent care, hospital, or [place] health care facility...) When possible be specific @ -No Did you speak to anyone other than the patient for history (EMS, parent, family, police, friend...)? What history was obtained from this source @ -No Did you review nursing and triage notes (agree or disagree)? Why? @ -I reviewed and agree with nursing and triage notes Were old charts reviewed (outside hosp., previous admission, EMS record, old EKG, old radiological studies, urgent care reports/EKG's, [place] health care facility records)? Report findings @ -No old charts were reviewed Differential Diagnosis (chest pain, altered mental status, abdominal pain women, abdominal pain men, vaginal bleeding, weakness, fever, dyspnea, syncope, headache, dizziness, GI bleed, back pain, seizure, CVA, palpatations, mental health, musculoskeletal)? @ -Differential Syncope: Valvular disease, hypertrophic cardiomyopathy, pulmonary embolism, tamponade, tachycardia, bradycardia, CT, hypovolemia, hemorrhage, dissection, anemia, intracranial hemorrhage, seizure, hypoglycemia, carbon monoxide poisoning, this is not meant to be an all-inclusive list. EKG interpreted by me (3pts min.). @ -Sinus arrhythmia, ventricular rate 60 bpm, OH interval 141 ms, QRS duration 93 ms, QT/QTc 372/373 ms. X-rays interpreted by me (1pt min.). @ -None done CT interpreted by me (1pt min.). @ -CT brain without contrast radiologist discovered no significant abnormalities. U/S interpreted by me (1pt. min.). @ -None done What testing was considered but not performed or refused? (CT, X-rays, U/S, caroline bertrand)? Why? @ -None What meds were considered but not given or refused? Why? @ -None Did you discuss the management of the patient with other professionals (professionals i.e. SUKUMAR Portillo, SURVEY DATA TECHNICIAN, lab, RT, psych nurse, social work therapist, bar back, teacher, fisheries officer, complex case manager)? Give summary @ -No Was smoking cessation discussed for >3mins.? @ -No Was critical care preformed (if so, how long)? @ -No Were there social determinants of health that impacted care today? How? (Homelessness, low income, unemployed, alcoholism, drug addiction, transportation, low edu. Level, literacy, decrease access to med. care, snf, rehab)? @ -No Was there de-escalation of care discussed even if they declined (Discuss DNR or withdrawal of care, Hospice)? DNR status @ -No What co-morbidities impacted this encounter? (DM, HTN, Smoking, COPD, CAD, Cancer, CVA, ARF, Chemo, Hep., AIDS, mental health diagnosis, sleep apnea, morbid obesity)? @ -None Was patient admitted / discharged? Hospital course, mention meds given and route, prescriptions, significant lab abnormalities, going to OR and other pertinent info. @ -Discharge. Blood work and CT brain revealed elevated liver enzymes. Patient states he is aware of abnormal liver enzyme levels and sees appropriate specialist. Undiagnosed new problem with uncertain prognosis? @ -Possible seizure. Advised follow-up with neurologist as soon as possible. Advised no driving for at least 6 months or until cleared by neurologist. Drug Therapy requiring intensive monitoring for toxicity (Heparin, Nitro, Insulin, Cardizem)? @ -No Were any procedures done? @ -No Diagnosis/symptom? @ -New onset seizure, possibly due to sudden cessation of Xanax use. Acute, or Chronic, or Acute on Chronic? @ -Acute Uncomplicated (without systemic symptoms) or Complicated (systemic symptoms)? @ -Uncomplicated Side effects of treatment? @ -No Exacerbation, Progression, or Severe Exacerbation? @ -No Poses a threat to life or bodily function? How? (Chest pain, USA, CT, pneumonia, PE, COPD, DKA, ARF, appy, cholecystitis, CVA, Diverticulitis, Homicidal, Suicidal, threat to staff... and all critical care pts) @ -No (Andry Santoro) - Lab Data Lab Results 01/23/24 01/23/24 01/23/24 Range/Units 07:07 07:07 07:07 WBC 8.5 (3.8-10.6) k/uL RBC 4.33 (4.30-5.90) m/uL Hgb 14.7 (13.0-17.5) gm/dL Hct 45.7 (39.0-53.0) % MCV 105.6 H (80.0-100.0) fL MCH 34.0 (25.0-35.0) pg MCHC 32.2 (31.0-37.0) g/dL RDW 15.9 H (11.5-15.5) % Plt Count 169 (150-450) k/uL MPV 8.0 Neutrophils % 81 % Lymphocytes % 10 % Monocytes % 5 % Eosinophils % 1 % Basophils % 0 % Neutrophils # 6.9 (1.3-7.7) k/uL Lymphocytes # 0.9 L (1.0-4.8) k/uL Monocytes # 0.4 (0-1.0) k/uL Eosinophils # 0.1 (0-0.7) k/uL Basophils # 0.0 (0-0.2) k/uL Macrocytosis Moderate Sodium 138 (137-145) mmol/L Potassium 4.9 (3.5-5.1) mmol/L Chloride 105 (98-107) mmol/L Carbon Dioxide 26 (22-30) mmol/L Anion Gap 7 mmol/L BUN 13 (9-20) mg/dL Creatinine 0.78 (0.66-1.25) mg/dL Est GFR (CKD-EPI)AfAm >90 (>60 ml/min/1.73 sqM) Est GFR (CKD-EPI)NonAf >90 (>60 ml/min/1.73 sqM) Glucose 118 H (74-99) mg/dL Plasma Lactic Acid Milind 1.6 (0.7-2.0) mmol/L Calcium 10.0 (8.4-10.2) mg/dL Magnesium 1.6 (1.6-2.3) mg/dL Total Bilirubin 1.1 (0.2-1.3) mg/dL AST 83 H (17-59) U/L ALT 152 H (4-49) U/L Alkaline Phosphatase 115 (38-126) U/L Total Protein 6.8 (6.3-8.2) g/dL Albumin 4.4 (3.5-5.0) g/dL Disposition <Matthisa Lin - Last Filed: 01/23/24 07:57> Is patient prescribed a controlled substance at d/c from ED?: No Time of Disposition: 08:00 <Andry Santoro - Last Filed: 01/23/24 09:17> Clinical Impression: Generalized seizure, New onset seizure Disposition: HOME SELF-CARE Condition: Good Instructions (If sedation given, give patient instructions): Seizure/Epilepsy Discharge Instructions & Follow-Up Referrals: None,Stated [REFERRING] - 1-2 days
[2024-01-23 07:15] LABS: Basophils % (A) 0 %; Eosinophils # (A) 0.1 k/uL (0-0.7); Eosinophils % (A) 1 %; HCT 45.7 % (39.0-53.0); HGB 14.7 gm/dL (13.0-17.5); Lymphocytes # (A) 0.9 k/uL (1.0-4.8); Lymphocytes % (A) 10 %; MCHC 32.2 g/dL (31.0-37.0); MCV 105.6 fL (80.0-100.0); Macrocytosis Moderate; Monocytes # (A) 0.4 k/uL (0-1.0); Monocytes % (A) 5 %; Neutrophils # (A) 6.9 k/uL (1.3-7.7); Neutrophils % (A) 81 %; Platelet Count 169 k/uL (150-450); RBC 4.33 m/uL (4.30-5.90); RDW 15.9 % (11.5-15.5); WBC 8.5 k/uL (3.8-10.6)
[2024-01-23 07:32] LABS: ALT 152 U/L (4-49); African American GFR (CKD) >90 (>60 ml/min/1.73 sqM); Anion Gap 7 mmol/L; Blood Urea Nitrogen 13 mg/dL (9-20); Carbon Dioxide 26 mmol/L (22-30); Chloride 105 mmol/L (98-107); Glucose 118 mg/dL (74-99); Non-African American GFR(CKD) >90 (>60 ml/min/1.73 sqM); Sodium 138 mmol/L (137-145); Total Bilirubin 1.1 mg/dL (0.2-1.3)
[2024-01-23 07:37] LABS: AST 83 U/L (17-59); Albumin 4.4 g/dL (3.5-5.0); Alkaline Phosphatase 115 U/L (38-126); Magnesium 1.6 mg/dL (1.6-2.3); Potassium 4.9 mmol/L (3.5-5.1); Total Protein 6.8 g/dL (6.3-8.2)
--- NOTE | 2024-01-23 07:50 | CT ---
EXAMINATION TYPE: CT brain wo con DATE OF EXAM: 01/23/2024 COMPARISON: 09/26/2009 HISTORY: seizure CT DLP: 1096.[address] of the brain was performed. The ventricles, basal cisterns and sulci overlying the cerebral convexities demonstrate a normal appe arance. There is no evidence for intracranial hemorrhage or sulcal effacement. No mass effects are seen. Osseous calvarium is intact. Left maxillary mucous retention cyst or small polyp. If symptoms persist consider MRI as clinically warranted. IMPRESSION: 1. No acute intracranial process is seen at this time. [facility], , 01/23/2024 7:47 AM
[2024-01-23] MEDS: ALBUTEROL NEBULIZED 2.5 MG/3 ML INHALATION STA (08:35)
[2024-01-23 09:18] VITALS: BP 147/90; PULSE 63; RESP 18; TEMP 98.4
[2024-01-25 07:17] LABS: Glucose,Whole Blood 90 mg/dL (70-110)
== END 2024-01-23 09:19 | disposition home or self-care (01) ==
LOC: EC 06:12
DX: G40.409 Other generalized epilepsy and epileptic syndromes, not intractable, without status epilepticus (principal)
CPT/HCPCS: 36415; 70450; 80053; 83605; 83735; 85025; 93005; 94640; 99285